=== PATIENT | female | born 1985 | race Caucasian/White ===

== ENCOUNTER 2016-09-14 00:48 | Emergency (ER) | payer OTHER ==
[~2016-09-14] VITALS: Ht 172.7 cm; Wt 65.0 kg
[~2016-09-14 00:48] MED LIST: ALPR.5 PO; CHOL1TAB42 PO; CIMZ200K SQ; LEVO.15 PO; LOMO2.5T PO; PANT20 PO; QUES4POW2 PO; VITA500T49 PO; ZOLO50TA PO
[2016-09-14 00:50] VITALS: BP 111/68; PULSE 129; RESP 16; TEMP 98; O2SAT 100
[2016-09-14] MEDS ORDERED: SODIUM CHLOR 0.9% 1000 ML INJ 1,000 ML IV SCH (01:06)
--- NOTE | 2016-09-14 01:09 | PD ---
HPI Chief Complaint: GI Complaint Time Seen by Provider: 01:04 Travel History International Travel<30 days: No Contact w/Intl Traveler<30days: No Traveled to known affect area: No History of Present Illness HPI 30-year-old female with history of Crohn's disease, ileostomy with high output, here for evaluation of possible dehydration. Patient reports taking Lomotil and Imodium for her high output in her ileostomy, ran out of Lomotil about 1 week ago. States that this evening she had a couple episodes of vomiting which consisted of vegetables soup which she had just eaten. She denies fevers or chills. No abdominal pain. Her gill tender is Dr. Keene. [facility]LY [facility] Past Medical History Arthritis: Yes Autoimmune Disease: Yes (CROHNS DISEASE) Blood Disorders: No Anxiety: Yes Depression: No Heart Rhythm Problems: Yes (RUNS TACHY WHEN DEHYDRATED) Cancer: No Cardiovascular Problems: Yes High Cholesterol: No Chest Pain: No Congestive Heart Failure: No Cerebrovascular Accident: Yes Diabetes: No Diminished Hearing: No Endocrine: Yes Gastrointestinal Disorders: Yes (CROHNS) Genitourinary: Yes (GARRET) Immune Disorder: Yes Implanted Vascular Access Dvce: Yes Kidney Stones: Yes Musculoskeletal: Yes Neurologic: Yes Psychiatric: Yes Reproductive: No Respiratory: No Immunizations Current: Yes Thyroid Disease: Yes (THYROIDECTOMY) Ulcer: Yes (peptic ulcer disease) : 1 Para: 1 Miscarriage: 0 : 0 Past Surgical History Abdominal Surgery: Yes (SMALL BOWEL RESECTION/ILEOSTOMY) Body Medical Devices: BREAST IMPLANTS, PLATES AND SCREWS IN R ANKLE Section: Yes Endocrine Surgery: Yes (thyroidectomy) Gynecologic Surgery: Yes (c section) Other Surgery: Yes Social History Alcohol Use: Yes (rarely) Tobacco Use: Yes (1/4 pack per day) Substance Use: No Allergies-Medications (Allergen,Severity, Reaction): Coded Allergies: Codeine (Verified Allergy, Mild, HIVES, 09/14/16) Latex (Verified Allergy, Mild, RASH, 09/14/16) Levaquin (Verified Adverse Reaction, Intermediate, HOURSE THROUT AND SOB, 09/14/16) Reported Meds & Prescriptions Reported Meds & Active Scripts Active Questran (Cholestyramine) 4 Gm/Dose Powd 4 Gm PO BID 1 level scoopful of powder contains 4 grams of cholestyramine. Lomotil (Diphenoxylate-Atropine) 2.5-0.025 Mg Tab 1 Tab PO Q8HR PRN Reported Vitamin B12 (Cyanocobalamin) 500 Mcg Tab 3,000 Mcg PO DAILY Vitamin D-3 (Cholecalciferol) 2,000 Unit Tab 50,000 Mg PO BI WEEKLY Synthroid (Levothyroxine Sodium) 150 Mcg Tab 150 Mcg PO DAILY Zoloft (Sertraline HCl) 50 Mg Tab 50 Mg PO DAILY Protonix (Pantoprazole Sodium) 20 Mg Tab 20 Mg PO DAILY Cimzia (2 syringe) Kit Inj (Certolizumab Pegol Inj) 200 Mg/Ml Kit 200 Mg SQ MONTHLY Administer 2 syringes (400 mg) to separate sites. Xanax (Alprazolam) 0.5 Mg Tab 0.5 Mg PO Q6H PRN Review of Systems Except as stated in HPI: all other systems reviewed are Neg Physical Exam Narrative GENERAL: Well-developed, thin, comfortable, no acute distress. SKIN: Warm and dry. No rash. HEAD: Atraumatic. Normocephalic. EYES: Pupils equal and round. No scleral icterus. No injection or drainage. ENT: Mucous membranes pink and moist. CARDIOVASCULAR: Regular rate and rhythm. RESPIRATORY: No accessory muscle use. Clear to auscultation. Breath sounds equal bilaterally. GASTROINTESTINAL: Abdomen soft, non-tender, nondistended. Right-sided ileostomy bag. MUSCULOSKELETAL: No obvious deformities. No clubbing. No cyanosis. No edema. NEUROLOGICAL: Awake and alert. No obvious cranial nerve deficits. Motor grossly within normal limits. Normal speech. PSYCHIATRIC: Appropriate mood and affect; insight and judgment normal. Data Data Last Documented VS Vital Signs Date Time Temp Pulse Resp B/P Pulse Ox O2 Delivery O2 Flow Rate FiO2 09/14/16 02:15 92 17 97 Room Air 09/14/16 00:50 98.0 111/68 Orders Beta Hcg (Quant/Titer) (09/14/16 01:06) Complete Blood Count With Diff (09/14/16 01:06) Comprehensive Metabolic Panel (09/14/16 01:06) Iv Access Insert/Monitor (09/14/16 01:06) Ecg Monitoring (09/14/16 01:06) Oximetry (09/14/16 01:06) Ondansetron Inj (Zofran Inj) (1/22/17 01:15) Sodium Chlor 0.9% 1000 Ml Inj (Ns 1000 M (09/14/16 01:06) Sodium Chloride 0.9% Flush (Ns Flush) (09/14/16 01:15) Sodium Chlor 0.9% 1000 Ml Inj (Ns 1000 M (09/14/16 02:15) Basic Metabolic Panel (Bmp) (09/14/16 02:07) Labs Laboratory Tests Test 09/14/16 09/14/16 01:20 03:45 White Blood Count 11.6 TH/MM3 Red Blood Count 5.23 MIL/MM3 Hemoglobin 15.0 GM/DL Hematocrit 43.4 % Mean Corpuscular Volume 83.0 FL Mean Corpuscular Hemoglobin 28.7 PG Mean Corpuscular Hemoglobin 34.5 % Concent Red Cell Distribution Width 13.5 % Platelet Count 481 TH/MM3 Mean Platelet Volume 7.7 FL Neutrophils (%) (Auto) 78.2 % Lymphocytes (%) (Auto) 11.0 % Monocytes (%) (Auto) 10.2 % Eosinophils (%) (Auto) 0.1 % Basophils (%) (Auto) 0.5 % Neutrophils # (Auto) 9.1 TH/MM3 Lymphocytes # (Auto) 1.3 TH/MM3 Monocytes # (Auto) 1.2 TH/MM3 Eosinophils # (Auto) 0.0 TH/MM3 Basophils # (Auto) 0.1 TH/MM3 CBC Comment DIFF FINAL Differential Comment Sodium Level 128 MEQ/L 135 MEQ/L Potassium Level 4.6 MEQ/L 4.4 MEQ/L Chloride Level 95 MEQ/L 105 MEQ/L Carbon Dioxide Level 23.3 MEQ/L 20.8 MEQ/L Anion Gap 10 MEQ/L 9 MEQ/L Blood Urea Nitrogen 13 MG/DL 11 MG/DL Creatinine 1.68 MG/DL 1.27 MG/DL Estimat Glomerular Filtration 36 ML/MIN 49 ML/MIN Rate Random Glucose 100 MG/DL 95 MG/DL Calcium Level 9.4 MG/DL 7.7 MG/DL Total Bilirubin 0.3 MG/DL Aspartate Amino Transf 13 U/L (AST/SGOT) Alanine Aminotransferase 15 U/L (ALT/SGPT) Alkaline Phosphatase 109 U/L Total Protein 8.1 GM/DL Albumin 3.8 GM/DL Human Chorionic Gonadotropin, LESS THAN 1 Quant MIU/ML MDM Medical Decision Making Medical Screen Exam Complete: Yes Emergency Medical Condition: Yes Medical Record Reviewed: Yes Differential Diagnosis Dehydration, electrolyte abnormality, gastroenteritis Narrative Course Initial vital signs show heart rate 129, blood pressure 111/60, pulse ox 100% on room air, oral temp of 98F. CBC shows WBC 11.6, hemoglobin 15, hematocrit 43.4, platelets 481, neutrophils 78%. CMP is remarkable for sodium 128, chloride 95, creatinine 1.68, GFR 36, otherwise unremarkable. Beta hCG is negative. The patient was given a liter of normal saline and her heart rate improved to 92. She will be given another liter of normal saline and her BMP will be rechecked. Repeat chemistry after 2 L of IV fluids shows sodium 135, creatinine 1.27, GFR 49 which is markedly improved from first BMP. Patient still feels slightly sick , however she is feeling better. Her abdominal exam is benign. I believe she is stable for discharge home with outpatient follow-up with her gill tender this week. I will give her a perception for Zofran and Lomotil. She was informed on when to return to the emergency department which verbalizes understanding and agreement with plan. Diagnosis Primary Impression: Dehydration Referrals: Lunchroom Monitor 3 days Additional Instructions: Follow-up with your gill tender as scheduled. Stay hydrated with plenty of fluids. Return to the emergency department for worsening symptoms or any other concerns. Scripts Diphenoxylate-Atropine (Lomotil)2.5-0.025 Mg Tab1 Tab PO Q6H PRN (DIARRHEA) #30 TAB Ref 0 Prov:Richard Lee MD 09/14/16 Ondansetron Odt (Zofran Odt)4 Mg Tab4 Mg SL Q8HR PRN (Nausea/Vomiting) #30 TAB Ref 0 Prov:Richard Lee MD 09/14/16 Disposition: DISCHARGE HOME Condition: Stable Richard Lee MD Sep 14, 2016 01:09
[2016-09-14] MEDS ORDERED: SODIUM CHLORIDE 0.9% FLUSH 5 ML FLUSH IVF PRN (01:15)
[2016-09-14] MEDS ORDERED: ONDANSETRON HCL 4 MG/2 ML VIAL IVP ONE (01:15)
[2016-09-14 01:43] LABS: AUTOMATED NEUTROPHIL # 9.1 TH/MM3 (1.8-7.7); BASOPHIL # 0.1 TH/MM3 (0-0.2); BASOPHIL % 0.5 % (0.0-2.0); EOSINOPHIL % 0.1 % (0.0-4.0); HEMATOCRIT 43.4 % (35.0-46.0); HEMO FLAGS DIFF FINAL; LYMPHOCYTE # 1.3 TH/MM3 (1.0-4.8); MEAN CORPUSCULAR HEMOGLOBIN 28.7 PG (27.0-34.0); MEAN CORPUSCULAR HGB CONC 34.5 % (32.0-36.0); MONO % 10.2 % (0.0-8.0); NEUT % 78.2 % (16.0-70.0); PLATELET COUNT 481 TH/MM3 (150-450); RED BLOOD COUNT 5.23 MIL/MM3 (4.00-5.30); RED CELL DISTRIBUTION WIDTH 13.5 % (11.6-17.2); WHITE BLOOD COUNT 11.6 TH/MM3 (4.0-11.0)
[2016-09-14 01:59] LABS: ALT (GPT) 15 U/L (10-53); ANION GAP 10 MEQ/L (5-15); AST (GOT) 13 U/L (15-37); BICARBONATE 23.3 MEQ/L (21.0-32.0); BLOOD UREA NITROGEN 13 MG/DL (7-18); CHLORIDE 95 MEQ/L (98-107); GLOMERULAR FILTRATION RATE 36 ML/MIN (>89); POTASSIUM 4.6 MEQ/L (3.5-5.1); SODIUM (NA) 128 MEQ/L (136-145)
[2016-09-14 02:02] LABS: ALKALINE PHOSPHATASE 109 U/L (45-117); BETA HCG QUANT LESS THAN 1 MIU/ML (0-5); TOTAL BILIRUBIN ADULT 0.3 MG/DL (0.2-1.0)
[2016-09-14 02:15] VITALS: PULSE 92; RESP 17; O2SAT 97
[2016-09-14] MEDS ORDERED: SODIUM CHLOR 0.9% 1000 ML INJ 1,000 ML IV ONE (02:15)
[2016-09-14 04:44] LABS: BICARBONATE 20.8 MEQ/L (21.0-32.0); POTASSIUM 4.4 MEQ/L (3.5-5.1)
[2016-09-14] MEDS ORDERED: LOMO2.5T PO (04:49)
[2016-09-14] MEDS ORDERED: ZOFR4TAB3 SL (04:49)
== END 2016-09-14 05:22 | disposition home or self-care (01) ==
LOC: NEPC 00:48
DX: E86.0 Dehydration (principal); K50.90 Crohn's disease, unspecified, without complications; Z93.2 Ileostomy status
CPT/HCPCS: 80048; 80053; 84702; 85025; 96361; 96374; 99284; J2405; J7030

== ENCOUNTER 2016-10-07 23:17 | Emergency (ER) | payer OTHER ==
[~2016-10-07] VITALS: Ht 170.2 cm; Wt 55.0 kg
[~2016-10-07 23:17] MED LIST changes: +ZOFR4TAB3 SL
[2016-10-07 23:21] VITALS: BP 120/83; PULSE 120; RESP 16; TEMP 98.2; O2SAT 100
[2016-10-08 03:38] LABS: AUTOMATED NEUTROPHIL # 4.6 TH/MM3 (1.8-7.7); BASOPHIL # 0.1 TH/MM3 (0-0.2); EOSINOPHIL % 0.3 % (0.0-4.0); HEMATOCRIT 45.1 % (35.0-46.0); HEMO FLAGS DIFF FINAL; LYMPH % 22.5 % (9.0-44.0); LYMPHOCYTE # 1.7 TH/MM3 (1.0-4.8); MEAN CELL VOLUME 83.4 FL (80.0-100.0); MEAN CORPUSCULAR HEMOGLOBIN 28.4 PG (27.0-34.0); MEAN CORPUSCULAR HGB CONC 34.1 % (32.0-36.0); MONO % 13.4 % (0.0-8.0); NEUT % 62.8 % (16.0-70.0); PLATELET COUNT 507 TH/MM3 (150-450); RED BLOOD COUNT 5.41 MIL/MM3 (4.00-5.30); RED CELL DISTRIBUTION WIDTH 13.9 % (11.6-17.2); WHITE BLOOD COUNT 7.4 TH/MM3 (4.0-11.0)
[2016-10-08 04:11] LABS: ANION GAP 11 MEQ/L (5-15); AST (GOT) 16 U/L (15-37); BICARBONATE 23.5 MEQ/L (21.0-32.0); BLOOD UREA NITROGEN 12 MG/DL (7-18); CHLORIDE 98 MEQ/L (98-107); GLOMERULAR FILTRATION RATE 45 ML/MIN (>89); POTASSIUM 4.3 MEQ/L (3.5-5.1); SODIUM (NA) 132 MEQ/L (136-145)
[2016-10-08 04:15] LABS: ALKALINE PHOSPHATASE 120 U/L (45-117); ALT (GPT) 17 U/L (10-53); TOTAL BILIRUBIN ADULT 0.3 MG/DL (0.2-1.0)
[2016-10-08 04:38] LABS: BLOOD, URINE NEG (NEG); COMMENT (UR) CULT NOT INDICATED; CULTURE IF INDICATED CULT NOT INDICATED; GLUCOSE,URINE NEG (NEG); KETONE, URINE NEG (NEG); NITRITE,URINE NEG (NEG); PH, URINE 5.5 (5.0-8.5); URINE COLOR YELLOW (YELLW/STRAW)
[2016-10-08 09:30] VITALS: BP 110/80; PULSE 85; RESP 17; O2SAT 98
[2016-10-08] MEDS ORDERED: SODIUM CHLOR 0.9% 1000 ML INJ 1,000 ML IV ONE ×2 (09:30→11:00)
[2016-10-08] MEDS ORDERED: ONDANSETRON HCL 4 MG/2 ML VIAL IV PUSH ONE (09:30)
--- NOTE | 2016-10-08 09:42 | PD ---
HPI Chief Complaint: GI Complaint Time Seen by Provider: 09:25 Travel History International Travel<30 days: No Contact w/Intl Traveler<30days: No Traveled to known affect area: No History of Present Illness HPI 31-year-old female with history of Crohn's disease, has an ileostomy, gastroparesis, presents to the ER today because she states that she had been nauseous, vomiting several times in the past 24 hours, abdominal cramping pains , and is here because she is getting lightheaded, thinks she may be dehydrated. She states that her ileostomy is fairly high output. She also states she may have a mild fever. She has had no vomiting since 9 PM last night. Modifying Factors: None Associated Signs & Symptoms: Nausea, vomiting, abdominal cramping pains Risk Factors: History gastroparesis and Crohn's disease PFSH Past Medical History Arthritis: Yes Autoimmune Disease: Yes (CROHNS DISEASE) Blood Disorders: No Anxiety: Yes Depression: No Heart Rhythm Problems: Yes (RUNS TACHY WHEN DEHYDRATED) Cancer: No Cardiovascular Problems: Yes High Cholesterol: No Chest Pain: No Congestive Heart Failure: No Cerebrovascular Accident: Yes Diabetes: No Diminished Hearing: No Endocrine: Yes Gastrointestinal Disorders: Yes (CROHNS) Genitourinary: Yes (GARRET) Immune Disorder: Yes Implanted Vascular Access Dvce: Yes Kidney Stones: Yes Musculoskeletal: Yes Neurologic: Yes Psychiatric: Yes Reproductive: No Respiratory: No Immunizations Current: Yes Thyroid Disease: Yes (THYROIDECTOMY) Ulcer: Yes (peptic ulcer disease) Tetanus Vaccination: < 5 Years Influenza Vaccination: Yes ?: Not : 1 Para: 1 Miscarriage: 0 : 0 Past Surgical History Abdominal Surgery: Yes (SMALL BOWEL RESECTION/ILEOSTOMY) Body Medical Devices: BREAST IMPLANTS, PLATES AND SCREWS IN R ANKLE Section: Yes Endocrine Surgery: Yes (thyroidectomy) Gynecologic Surgery: Yes (c section) Other Surgery: Yes Social History Alcohol Use: Yes (rarely) Tobacco Use: Yes (1/4 pack per day) Substance Use: No Allergies-Medications (Allergen,Severity, Reaction): Coded Allergies: Codeine (Verified Allergy, Mild, HIVES, 10/07/16) Latex (Verified Allergy, Mild, RASH, 10/07/16) Levaquin (Verified Adverse Reaction, Intermediate, HOURSE THROUT AND SOB, 10/07/16) Reported Meds & Prescriptions Reported Meds & Active Scripts Active Lomotil (Diphenoxylate-Atropine) 2.5-0.025 Mg Tab 1 Tab PO Q6H PRN Zofran Odt (Ondansetron Odt) 4 Mg Tab 4 Mg SL Q8HR PRN Questran (Cholestyramine) 4 Gm/Dose Powd 4 Gm PO BID 1 level scoopful of powder contains 4 grams of cholestyramine. Lomotil (Diphenoxylate-Atropine) 2.5-0.025 Mg Tab 1 Tab PO Q8HR PRN Reported Vitamin B12 (Cyanocobalamin) 500 Mcg Tab 3,000 Mcg PO DAILY Vitamin D-3 (Cholecalciferol) 2,000 Unit Tab 50,000 Mg PO BI WEEKLY Synthroid (Levothyroxine Sodium) 150 Mcg Tab 150 Mcg PO DAILY Zoloft (Sertraline HCl) 50 Mg Tab 50 Mg PO DAILY Protonix (Pantoprazole Sodium) 20 Mg Tab 20 Mg PO DAILY Cimzia (2 syringe) Kit Inj (Certolizumab Pegol Inj) 200 Mg/Ml Kit 200 Mg SQ MONTHLY Administer 2 syringes (400 mg) to separate sites. Xanax (Alprazolam) 0.5 Mg Tab 0.5 Mg PO Q6H PRN Review of Systems Except as stated in HPI: all other systems reviewed are Neg Physical Exam Narrative GENERAL: Well-nourished, well-developed young white female patient in mild distress. SKIN: Warm and dry. HEAD: Normocephalic. EYES: No scleral icterus. No injection or drainage. NECK: Supple, trachea midline. CARDIOVASCULAR: Regular rate and rhythm without murmurs, gallops, or rubs. RESPIRATORY: Breath sounds equal bilaterally. No accessory muscle use. GASTROINTESTINAL: Abdomen soft, non-tender, nondistended. Ileostomy in place draining tangreenish stool. MUSCULOSKELETAL: No cyanosis, or edema. BACK: Nontender without obvious deformity. No CVA tenderness. Data Data Last Documented VS Vital Signs Date Time Temp Pulse Resp B/P Pulse Ox O2 Delivery O2 Flow Rate FiO2 10/07/16 23:38 16 10/07/16 23:21 98.2 120 120/83 100 Orders Complete Blood Count With Diff (10/08/16 03:03) Comprehensive Metabolic Panel (10/08/16 03:03) Urinalysis - C+S If Indicated (10/08/16 03:03) Lipase (10/08/16 03:03) Sodium Chlor 0.9% 1000 Ml Inj (Ns 1000 M (10/08/16 09:30) Ondansetron Inj (Zofran Inj) (10/08/16 09:30) Abdomen, Flat & Upright (10/08/16 09:42) Labs Laboratory Tests Test 10/08/16 10/08/16 03:25 04:20 White Blood Count 7.4 TH/MM3 Red Blood Count 5.41 MIL/MM3 Hemoglobin 15.4 GM/DL Hematocrit 45.1 % Mean Corpuscular Volume 83.4 FL Mean Corpuscular Hemoglobin 28.4 PG Mean Corpuscular Hemoglobin 34.1 % Concent Red Cell Distribution Width 13.9 % Platelet Count 507 TH/MM3 Mean Platelet Volume 7.3 FL Neutrophils (%) (Auto) 62.8 % Lymphocytes (%) (Auto) 22.5 % Monocytes (%) (Auto) 13.4 % Eosinophils (%) (Auto) 0.3 % Basophils (%) (Auto) 1.0 % Neutrophils # (Auto) 4.6 TH/MM3 Lymphocytes # (Auto) 1.7 TH/MM3 Monocytes # (Auto) 1.0 TH/MM3 Eosinophils # (Auto) 0.0 TH/MM3 Basophils # (Auto) 0.1 TH/MM3 CBC Comment DIFF FINAL Differential Comment Sodium Level 132 MEQ/L Potassium Level 4.3 MEQ/L Chloride Level 98 MEQ/L Carbon Dioxide Level 23.5 MEQ/L Anion Gap 11 MEQ/L Blood Urea Nitrogen 12 MG/DL Creatinine 1.37 MG/DL Estimat Glomerular Filtration 45 ML/MIN Rate Random Glucose 85 MG/DL Calcium Level 9.7 MG/DL Total Bilirubin 0.3 MG/DL Aspartate Amino Transf 16 U/L (AST/SGOT) Alanine Aminotransferase 17 U/L (ALT/SGPT) Alkaline Phosphatase 120 U/L Total Protein 8.6 GM/DL Albumin 3.7 GM/DL Lipase 105 U/L Urine Color YELLOW Urine Turbidity CLEAR Urine pH 5.5 Urine Specific [place]ola 1.006 Urine Protein NEG mg/dL Urine Glucose (UA) NEG mg/dL Urine Ketones NEG mg/dL Urine Occult Blood NEG Urine Nitrite NEG Urine Bilirubin NEG Urine Urobilinogen LESS THAN 2.0 MG/DL Urine Leukocyte Esterase NEG Urine RBC LESS THAN 1 /hpf Urine WBC 1 /hpf Microscopic Urinalysis Comment CULT NOT INDICATED MDM Medical Decision Making Medical Screen Exam Complete: Yes Emergency Medical Condition: Yes Medical Record Reviewed: Yes Interpretation(s) Laboratory Tests Test 10/08/16 03:25 Red Blood Count 5.41 MIL/MM3 (4.00-5.30) Hemoglobin 15.4 GM/DL (11.6-15.3) Platelet Count 507 TH/MM3 (150-450) Monocytes (%) (Auto) 13.4 % (0.0-8.0) Monocytes # (Auto) 1.0 TH/MM3 (0-0.9) Sodium Level 132 MEQ/L (136-145) Creatinine 1.37 MG/DL (0.50-1.00) Estimat Glomerular Filtration 45 ML/MIN (>89) Rate Alkaline Phosphatase 120 U/L (45-117) Total Protein 8.6 GM/DL (6.4-8.2) Last 24 hours Impressions Abdomen X-Ray 10/08/16 0942 Signed Impressions: Service Date/Time: Saturday, October 08, 2016 10:17 - CONCLUSION: 1. Ostomy in the right lower quadrant. Exam is otherwise within normal limits. Jerad Jerez MD Differential Diagnosis Nausea, vomiting, abdominal cramping painsgastroenteritis versus gastroparesis versus metabolic issues versus dehydration Narrative Course Abdomen is benign on exam. Ostomy appears to be functioning well. Lab work did not indicate significant leukocytosis, signs of sepsis, or significant dehydration. She was given Zofran and IV fluids in the ER. He she has not had continued vomiting episodes in the ER. X-ray did not show any signs of acute obstruction. At this point, my plan would be to release her with follow-up to GI and Dr. Tsang. Return for any worsening in symptoms as necessary. Patient states she has Zofran at home which she should take for nausea and vomiting. The plan was discussed with her and she states understanding. Diagnosis Primary Impression: N&V (nausea and vomiting) Additional Impression: Dehydration Disposition: 01 DISCHARGE HOME Condition: Stable SoonthPriyanka sanchez MD Oct 08, 2016 09:42
--- NOTE | 2016-10-08 10:38 | RADRPT ---
EXAM DATE/TIME: 10/08/2016 10:17 [facility] COMPARISON: CHEST SINGLE AP, December 06, 2015, 19:55. INDICATIONS : Vomiting, abdomen pain. MEDICAL HISTORY : Crohn's disease. SURGICAL HISTORY : ileostomy ENCOUNTER: Initial ACUITY: 1 week PAIN SCORE: 6/10 LOCATION: Bilateral abdomen FINDINGS: Supine and upright views of the abdomen were performed. The abdominal bowel gas pattern is normal. No air fluid levels are seen. No abnormal masses, calcifications, or organomegaly is seen. The visu alized lower lungs are clear. No evidence of free intraperitoneal gas. The osseous structures are u nremarkable. The examination does demonstrate an ostomy in the right lower quadrant. CONCLUSION: 1. Ostomy in the right lower quadrant. Exam is otherwise within normal limits. Jerad Jerez MD on October 08, 2016 at 10:36 Board Certified Radiologist. This report was verified electronically.
[2016-10-08 12:00] VITALS: BP 107/71; PULSE 84; RESP 19; O2SAT 100
[2016-10-09] MEDS ORDERED: HYDR-3533 PO (10:28)
[2016-10-09] MEDS ORDERED: ZOFR4TAB3 SL (10:28)
== END 2016-10-08 12:53 | disposition home or self-care (01) ==
LOC: NEPC 23:17
DX: R11.2 Nausea with vomiting, unspecified (principal); E86.0 Dehydration; K50.90 Crohn's disease, unspecified, without complications; K31.84 Gastroparesis; R42 Dizziness and giddiness; Z87.442 Personal history of urinary calculi; E07.9 Disorder of thyroid, unspecified; F17.210 Nicotine dependence, cigarettes, uncomplicated; Z86.73 Personal history of transient ischemic attack (TIA), and cerebral infarction without residual deficits
CPT/HCPCS: 74020; 80053; 81001; 83690; 85025; 96361; 96374; 99284; J2405; J7030

== ENCOUNTER 2016-10-09 03:26 | Emergency (ER) | payer OTHER ==
[~2016-10-09] VITALS: Ht 170.2 cm; Wt 60.0 kg
[2016-10-09 03:37] VITALS: BP 128/73; PULSE 98; RESP 16; TEMP 98.3; O2SAT 100
[2016-10-09] MEDS ORDERED: HYDROmorphone HCL PF 1 MG/ML VIAL IVS ONE (03:45)
[2016-10-09] MEDS ORDERED: SODIUM CHLORIDE 0.9% FLUSH 5 ML FLUSH IVF PRN (03:45)
[2016-10-09] MEDS: SODIUM CHLOR 0.9% 1000 ML INJ 1,000 ML IV SCH ×2 (03:47→06:42)
[2016-10-09 04:02] LABS: AUTOMATED NEUTROPHIL # 2.3 TH/MM3 (1.8-7.7); BASOPHIL % 0.9 % (0.0-2.0); EOSINOPHIL # 0.1 TH/MM3 (0-0.4); EOSINOPHIL % 1.2 % (0.0-4.0); HEMO FLAGS DIFF FINAL; LYMPH % 39.6 % (9.0-44.0); LYMPHOCYTE # 2.1 TH/MM3 (1.0-4.8); MEAN CORPUSCULAR HEMOGLOBIN 28.9 PG (27.0-34.0); MEAN CORPUSCULAR HGB CONC 34.8 % (32.0-36.0); MONO % 15.4 % (0.0-8.0); NEUT % 42.9 % (16.0-70.0); PLATELET COUNT 559 TH/MM3 (150-450); RED CELL DISTRIBUTION WIDTH 14.2 % (11.6-17.2); WHITE BLOOD COUNT 5.4 TH/MM3 (4.0-11.0)
[2016-10-09 04:24] LABS: ALKALINE PHOSPHATASE 106 U/L (45-117); TOTAL BILIRUBIN ADULT 0.3 MG/DL (0.2-1.0)
[2016-10-09 04:32] LABS: ALT (GPT) 14 U/L (10-53); ANION GAP 12 MEQ/L (5-15); AST (GOT) 16 U/L (15-37); BICARBONATE 19.9 MEQ/L (21.0-32.0); BLOOD UREA NITROGEN 11 MG/DL (7-18); CHLORIDE 105 MEQ/L (98-107); GLOMERULAR FILTRATION RATE 57 ML/MIN (>89); SODIUM (NA) 137 MEQ/L (136-145)
--- NOTE | 2016-10-09 04:37 | RADRPT ---
EXAM DATE/TIME: 10/09/2016 03:58 [facility] COMPARISON: No previous studies available for comparison. INDICATIONS : Abdomen pain. MEDICAL HISTORY : Crohn's disease. SURGICAL HISTORY : Colostomy. ENCOUNTER: Initial ACUITY: 2 days PAIN SCORE: 10/10 LOCATION: Bilateral lower quadrant FINDINGS: A single erect view of the abdomen demonstrates the lower lungs to be clear. No evidence of free int raperitoneal gas. The visualized bowel loops are unremarkable. CONCLUSION: 1. No evidence of obstruction. Alexandru Walsh MD on October 09, 2016 at 4:35 Board Certified Radiologist. This report was verified electronically.
--- NOTE | 2016-10-09 04:45 | PD ---
HPI Chief Complaint: Abdominal Pain Time Seen by Provider: 03:31 Travel History International Travel<30 days: No Contact w/Intl Traveler<30days: No Traveled to known affect area: No History of Present Illness HPI This is a 31-year-old female history Crohn's disease, pancreatitis, gastroparesis, who has an ileostomy, and presents today with complaints of 8 out of 10 abdominal pain. With associated nausea. The patient reports being here 24 hours ago for the same thing. At that time she states that they did laboratory work and observed her. She states that the pain dropped down to a 6 out of 10 but now has recurred and is around 810. She denies any fevers, chills. She is actually requesting an NG tube. She denies any dysuria, frequency or urgency. History Past Medical History Tetanus Vaccination: < 5 Years Influenza Vaccination: Yes : 1 Para: 1 Social History Alcohol Use: Yes (rarely) Tobacco Use: Yes (1/4 pack per day) Allergies-Medications (Allergen,Severity, Reaction): Coded Allergies: Codeine (Verified Allergy, Mild, HIVES, 10/09/16) Latex (Verified Allergy, Mild, RASH, 10/09/16) Levaquin (Verified Adverse Reaction, Intermediate, HOURSE THROUT AND SOB, 10/09/16) Reported Meds & Prescriptions Reported Meds & Active Scripts Active Lomotil (Diphenoxylate-Atropine) 2.5-0.025 Mg Tab 1 Tab PO Q6H PRN Zofran Odt (Ondansetron Odt) 4 Mg Tab 4 Mg SL Q8HR PRN Questran (Cholestyramine) 4 Gm/Dose Powd 4 Gm PO BID 1 level scoopful of powder contains 4 grams of cholestyramine. Lomotil (Diphenoxylate-Atropine) 2.5-0.025 Mg Tab 1 Tab PO Q8HR PRN Reported Vitamin B12 (Cyanocobalamin) 500 Mcg Tab 3,000 Mcg PO DAILY Vitamin D-3 (Cholecalciferol) 2,000 Unit Tab 50,000 Mg PO BI WEEKLY Synthroid (Levothyroxine Sodium) 150 Mcg Tab 150 Mcg PO DAILY Zoloft (Sertraline HCl) 50 Mg Tab 50 Mg PO DAILY Protonix (Pantoprazole Sodium) 20 Mg Tab 20 Mg PO DAILY Cimzia (2 syringe) Kit Inj (Certolizumab Pegol Inj) 200 Mg/Ml Kit 200 Mg SQ MONTHLY Administer 2 syringes (400 mg) to separate sites. Xanax (Alprazolam) 0.5 Mg Tab 0.5 Mg PO Q6H PRN Review of Systems Except as stated in HPI: all other systems reviewed are Neg General / Constitutional: No: Fever, Chills HENT: No: Headaches, Lightheadedness Cardiovascular: No: Chest Pain or Discomfort, Palpitations Respiratory: No: Cough, Shortness of Breath Gastrointestinal: Positive: Nausea, Abdominal Pain, No: Vomiting Genitourinary: No: Frequency, Dysuria, Nocturia Skin: No Rash, No Itching Neurologic: No: Weakness, Dizziness Physical Exam Narrative GENERAL: Well-developed well-nourished female in no acute respiratory distress. SKIN: Warm and dry. HEAD: Atraumatic. Normocephalic. EYES: No scleral icterus. No injection or drainage. ENT: No nasal bleeding or discharge. Mucous membranes pink and moist. NECK: Trachea midline. Supple CARDIOVASCULAR: Regular rate and rhythm. No murmur appreciated. RESPIRATORY: No accessory muscle use. Clear to auscultation. Breath sounds equal bilaterally. GASTROINTESTINAL: Abdomen soft, nondistended. Her ileostomy site shows good output. No rebound, guarding. MUSCULOSKELETAL: No obvious deformities. No clubbing. No cyanosis. No edema. NEUROLOGICAL: Awake and alert. No obvious cranial nerve deficits. Data Data Last Documented VS Vital Signs Date Time Temp Pulse Resp B/P Pulse Ox O2 Delivery O2 Flow Rate FiO2 10/09/16 03:37 98.3 98 16 128/73 100 Room Air Orders Complete Blood Count With Diff (10/09/16 03:39) Comprehensive Metabolic Panel (10/09/16 03:39) Lipase (10/09/16 03:39) Urinalysis - C+S If Indicated (10/09/16 03:39) Iv Access Insert/Monitor (10/09/16 03:39) Ecg Monitoring (10/09/16 03:39) Oximetry (10/09/16 03:39) Sodium Chlor 0.9% 1000 Ml Inj (Ns 1000 M (10/09/16 03:39) Sodium Chloride 0.9% Flush (Ns Flush) (10/09/16 03:45) Abdomen, Upright Only (10/09/16 03:39) Hydromorphone Pf Inj (Dilaudid Pf Inj) (10/09/16 03:45) Hydromorphone Pf Inj (Dilaudid Pf Inj) (10/09/16 06:45) Sodium Chlor 0.9% 1000 Ml Inj (Ns 1000 M (10/09/16 07:00) Labs Laboratory Tests Test 10/09/16 10/09/16 03:45 05:45 White Blood Count 5.4 TH/MM3 Red Blood Count 5.30 MIL/MM3 Hemoglobin 15.3 GM/DL Hematocrit 44.0 % Mean Corpuscular Volume 83.0 FL Mean Corpuscular Hemoglobin 28.9 PG Mean Corpuscular Hemoglobin 34.8 % Concent Red Cell Distribution Width 14.2 % Platelet Count 559 TH/MM3 Mean Platelet Volume 7.4 FL Neutrophils (%) (Auto) 42.9 % Lymphocytes (%) (Auto) 39.6 % Monocytes (%) (Auto) 15.4 % Eosinophils (%) (Auto) 1.2 % Basophils (%) (Auto) 0.9 % Neutrophils # (Auto) 2.3 TH/MM3 Lymphocytes # (Auto) 2.1 TH/MM3 Monocytes # (Auto) 0.8 TH/MM3 Eosinophils # (Auto) 0.1 TH/MM3 Basophils # (Auto) 0.0 TH/MM3 CBC Comment DIFF FINAL Differential Comment Sodium Level 137 MEQ/L Potassium Level 4.0 MEQ/L Chloride Level 105 MEQ/L Carbon Dioxide Level 19.9 MEQ/L Anion Gap 12 MEQ/L Blood Urea Nitrogen 11 MG/DL Creatinine 1.12 MG/DL Estimat Glomerular Filtration 57 ML/MIN Rate Random Glucose 101 MG/DL Calcium Level 8.9 MG/DL Total Bilirubin 0.3 MG/DL Aspartate Amino Transf 16 U/L (AST/SGOT) Alanine Aminotransferase 14 U/L (ALT/SGPT) Alkaline Phosphatase 106 U/L Total Protein 7.6 GM/DL Albumin 3.5 GM/DL Lipase 103 U/L Urine Color YELLOW Urine Turbidity HAZY Urine pH 6.0 Urine Specific [place] 1.026 Urine Protein TRACE mg/dL Urine Glucose (UA) NEG mg/dL Urine Ketones NEG mg/dL Urine Occult Blood NEG Urine Nitrite NEG Urine Bilirubin NEG Urine Urobilinogen LESS THAN 2.0 MG/DL Urine Leukocyte Esterase NEG Urine RBC 1 /hpf Urine WBC 1 /hpf Urine Squamous Epithelial <1 /hpf Cells Urine Renal Epithelial Cells <1 /hpf Urine Hyaline Casts 17 /lpf Urine Mucus MANY /lpf Microscopic Urinalysis Comment CULT NOT INDICATED MDM Medical Decision Making Medical Screen Exam Complete: Yes Emergency Medical Condition: Yes Differential Diagnosis Acute exacerbation of Crohn's disease versus gastroparesis versus infectious process Narrative Course 31-year-old female whose been seen here multiple times for Crohn's exacerbation , who presents today with abdominal pain with associated nausea. The patient has no fevers chills. The patient's blood count and urinalysis are within normal limits. She does have a creatinine it's above 1.2. She's been given 2 doses of pain medicines. I anticipate if we can get her pain under control that she can safely be discharged. She is also given a fluid bolus.She will be signed out to Dr. Rajput and if she tolerates the fluid bolus and second dose of pain medication, I feel she can be discharged. Diagnosis Primary Impression: Exacerbation of Crohn's disease Additional Impressions: Dehydration Nausea Geovany Mireles MD Oct 09, 2016 04:45
[2016-10-09 05:55] LABS: BLOOD, URINE NEG (NEG); COMMENT (UR) CULT NOT INDICATED; CULTURE IF INDICATED CULT NOT INDICATED; GLUCOSE,URINE NEG (NEG); HYALINE CAST, URINE 17 /lpf (RARE); KETONE, URINE NEG (NEG); MUCUS URINE MANY /lpf (OCC); NITRITE,URINE NEG (NEG); RENAL EPITHELIAL CELLS <1 /hpf; SQUAMOUS EPITHELIAL CELL URINE <1 /hpf (0-5); URINE COLOR YELLOW (YELLW/STRAW)
[2016-10-09] MEDS ORDERED: HYDROmorphone HCL PF 1 MG/ML VIAL IV PUSH ONE (06:45)
[2016-10-09] MEDS ORDERED: SODIUM CHLOR 0.9% 1000 ML INJ 1,000 ML IV ONE (07:00)
[2016-10-09 07:10] VITALS: O2SAT 96
[2016-10-09 07:30] VITALS: BP 126/86; PULSE 78; RESP 19; O2SAT 99
[2016-10-09] MEDS ORDERED: IOHEXOL 350 MG/ML 10 ML VIAL (for RAD DIAG) IV ONE (08:34)
--- NOTE | 2016-10-09 09:00 | RADRPT ---
EXAM DATE/TIME: 10/09/2016 08:23 [facility] COMPARISON: CT ABDOMEN & PELVIS W CONTRAST, June 17, 2016, 14:19. INDICATIONS : Abdominal pain around stoma and nausea. IV CONTRAST: 69 cc Omnipaque 350 (iohexol) IV ORAL CONTRAST: No oral contrast ingested. RADIATION DOSE: 9.96 CTDIvol (mGy) MEDICAL HISTORY : Crohn's disease. Ulcers. Cardiovascular disease SURGICAL HISTORY : section. Small bowel resection, ileostomy. ENCOUNTER: Initial ACUITY: 1 day PAIN SCALE: 5/10 LOCATION: Right lower quadrant TECHNIQUE: Volumetric scanning of the abdomen and pelvis was performed. Using automated exposure control and ad justment of the mA and/or kV according to patient size, radiation dose was kept as low as reasonably achievable to obtain optimal diagnostic quality images. FINDINGS: LOWER LUNGS: The visualized lower lungs are clear. Bilateral breast augmentation. LIVER: Liver is enlarged measuring approximately 23 cm in greatest SI dimension. There is a faint, 2 cm hete rogeneous but only hypodense area near the anterior capsule of the left hepatic lobe which is unchang ed from prior and overtly benign possibly representing an atypical hemangioma. Density is otherwise h omogeneous SPLEEN: Normal size without lesion. PANCREAS: Within normal limits. KIDNEYS: Normal in size and shape. There is no mass, stone or hydronephrosis. ADRENAL GLANDS: Within normal limits. VASCULAR: There is no aortic aneurysm. BOWEL/MESENTERY: Patient has an ileostomy in the right lower abdominal quadrant. There is dilation of the bowel loops involving the distal portion of the ileostomy with a focal area of luminal narrowing in the trans-mus cular portion of the ileostomy. Whether this represents intrinsic disease of the bowel or an external compression due to the trans-muscular course is uncertain. I do believe that this does result in par tial obstruction of the outflow, however. ABDOMINAL WALL: Right lower quadrant ileostomy. RETROPERITONEUM: There is no lymphadenopathy. BLADDER: No wall thickening or mass. REPRODUCTIVE: Within normal limits. INGUINAL: There is no lymphadenopathy or hernia. MUSCULOSKELETAL: Within normal limits for patient age. CONCLUSION: 1. Focal area of what appears to be persistent narrowing in the distal ileostomy involving the trans- muscular portion of the bowel. I cannot tell if this represents intrinsic disease of the regional bow el or external compression due to the trans-muscular course. There is associated dilation of the ileu m just proximal to the area of narrowing, however. 2. Persistent hepatomegaly with a nonspecific hypodensity in the subcapsular portion anteriorly of th e left hepatic lobe. The lesion is overtly benign and unchanged from prior and, therefore, may repres ent an atypical hemangioma. If further characterization is necessary, outpatient MRI with and without gadolinium could be performed. Alfredo Meier MD on October 09, 2016 at 8:48 Board Certified Radiologist. This report was verified electronically.
[2016-10-09] MEDS ORDERED: LORazepam 2 MG/ML VIAL IV PUSH ONE (09:15)
[2016-10-09] MEDS ORDERED: ZOFR4TAB3 SL (10:28)
[2016-10-09] MEDS ORDERED: HYDR-3533 PO (10:28)
--- NOTE | 2016-10-09 10:28 | PD ---
Physical Exam Date Seen by Provider: Oct 09, 2016 Time Seen by Provider: 07:00 Narrative Patient signed out to me by Dr. Mireles, please see previous notes for further details. She is well-known to me, history of Crohn's disease, ileostomy, problems with by mouth intake, nausea, vomiting, dehydration. She is here again for abdominal pains, nausea, poor by mouth intake. Laboratory Tests Test 10/09/16 10/09/16 03:45 05:45 Platelet Count 559 TH/MM3 (150-450) Monocytes (%) (Auto) 15.4 % (0.0-8.0) Carbon Dioxide Level 19.9 MEQ/L (21.0-32.0) Creatinine 1.12 MG/DL (0.50-1.00) Estimat Glomerular Filtration 57 ML/MIN (>89) Rate Urine Turbidity HAZY (CLEAR) Urine Mucus MANY /lpf (OCC) Lab work returns showing any signs of acute processes. She has gotten IV fluids and pain medications in the ER. At this point, she is tearful and is worried that there could be something going on with her abdominal pain. CAT scan has been ordered for further evaluation this time. Last 24 hours Impressions Abdomen/Pelvis CT 10/09/16 0752 Signed Impressions: Service Date/Time: September 08:23 - CONCLUSION: 1. Focal area of what appears to be persistent narrowing in the distal ileostomy involving the trans-muscular portion of the bowel. I cannot tell if this represents intrinsic disease of the regional bowel or external compression due to the trans-muscular course. There is associated dilation of the ileum just proximal to the area of narrowing, however. 2. Persistent hepatomegaly with a nonspecific hypodensity in the subcapsular portion anteriorly of the left hepatic lobe. The lesion is overtly benign and unchanged from prior and, therefore, may represent an atypical hemangioma. If further characterization is necessary, outpatient MRI with and without gadolinium could be performed. Alfredo Meier MD Abdomen X-Ray 10/09/16 0339 Signed Impressions: Service Date/Time: September 03:58 - CONCLUSION: 1. No evidence of obstruction. Alexandru Walsh MD CAT scan was reviewed with radiologist and Dr. Tsang has been called regarding the CAT scan, I have reviewed findings with Dr. Tsang and he states that he would expect some of these findings with her ileostomy. Ileostomy appears to be functioning well and patient states that her ileostomy has been draining up to 2000 cc per day. It is at fairly high flow ileostomy and Dr. Tsang states that this does not appear to be consistent with a obstruction. However, she is getting fairly frustrated with the situation and pain and ongoing visits to the ER. I have talked to Dr. Fitzpatrick for observation admission. However, Dr. Fitzpatrick knows her well as well and states that there is not likely to be much that will occur during the admission. He has asked me to call Dr. Tsang again. I talked her and he states that he will be willing to see the patient in his office today or tomorrow. However, there does not appear to be any signs of acute issues that necessitate emergent surgery. At this point, I have discussed the findings with the patient and she states understanding and states she will follow-up with Dr. Tsang. Return for any worsening in symptoms as necessary. We will give her symptomatic relief or pain and vomiting. The plan was discussed with her and she states understanding. Data Data Last Documented VS Vital Signs Date Time Temp Pulse Resp B/P Pulse Ox O2 Delivery O2 Flow Rate FiO2 10/09/16 07:30 78 19 126/86 99 Room Air 10/09/16 03:37 98.3 Orders Complete Blood Count With Diff (10/09/16 03:39) Comprehensive Metabolic Panel (10/09/16 03:39) Lipase (10/09/16 03:39) Urinalysis - C+S If Indicated (10/09/16 03:39) Iv Access Insert/Monitor (10/09/16 03:39) Ecg Monitoring (10/09/16 03:39) Oximetry (10/09/16 03:39) Sodium Chlor 0.9% 1000 Ml Inj (Ns 1000 M (10/09/16 03:39) Sodium Chloride 0.9% Flush (Ns Flush) (10/09/16 03:45) Abdomen, Upright Only (10/09/16 03:39) Hydromorphone Pf Inj (Dilaudid Pf Inj) (10/09/16 03:45) Hydromorphone Pf Inj (Dilaudid Pf Inj) (10/09/16 06:45) Sodium Chlor 0.9% 1000 Ml Inj (Ns 1000 M (10/09/16 07:00) Ct Abd/Pel W Iv Contrast(Rout) (10/09/16 07:52) Iohexol 350 Inj (Omnipaque 350 Inj) (10/09/16 08:34) Lorazepam Inj (Ativan Inj) (10/09/16 09:15) Acetamin-Hydrocod 325-5 Mg ([place] 5-325 (10/09/16 10:30) Labs Laboratory Tests Test 10/09/16 10/09/16 03:45 05:45 White Blood Count 5.4 TH/MM3 Red Blood Count 5.30 MIL/MM3 Hemoglobin 15.3 GM/DL Hematocrit 44.0 % Mean Corpuscular Volume 83.0 FL Mean Corpuscular Hemoglobin 28.9 PG Mean Corpuscular Hemoglobin 34.8 % Concent Red Cell Distribution Width 14.2 % Platelet Count 559 TH/MM3 Mean Platelet Volume 7.4 FL Neutrophils (%) (Auto) 42.9 % Lymphocytes (%) (Auto) 39.6 % Monocytes (%) (Auto) 15.4 % Eosinophils (%) (Auto) 1.2 % Basophils (%) (Auto) 0.9 % Neutrophils # (Auto) 2.3 TH/MM3 Lymphocytes # (Auto) 2.1 TH/MM3 Monocytes # (Auto) 0.8 TH/MM3 Eosinophils # (Auto) 0.1 TH/MM3 Basophils # (Auto) 0.0 TH/MM3 CBC Comment DIFF FINAL Differential Comment Sodium Level 137 MEQ/L Potassium Level 4.0 MEQ/L Chloride Level 105 MEQ/L Carbon Dioxide Level 19.9 MEQ/L Anion Gap 12 MEQ/L Blood Urea Nitrogen 11 MG/DL Creatinine 1.12 MG/DL Estimat Glomerular Filtration 57 ML/MIN Rate Random Glucose 101 MG/DL Calcium Level 8.9 MG/DL Total Bilirubin 0.3 MG/DL Aspartate Amino Transf 16 U/L (AST/SGOT) Alanine Aminotransferase 14 U/L (ALT/SGPT) Alkaline Phosphatase 106 U/L Total Protein 7.6 GM/DL Albumin 3.5 GM/DL Lipase 103 U/L Urine Color YELLOW Urine Turbidity HAZY Urine pH 6.0 Urine Specific [place] 1.026 Urine Protein TRACE mg/dL Urine Glucose (UA) NEG mg/dL Urine Ketones NEG mg/dL Urine Occult Blood NEG Urine Nitrite NEG Urine Bilirubin NEG Urine Urobilinogen LESS THAN 2.0 MG/DL Urine Leukocyte Esterase NEG Urine RBC 1 /hpf Urine WBC 1 /hpf Urine Squamous Epithelial <1 /hpf Cells Urine Renal Epithelial Cells <1 /hpf Urine Hyaline Casts 17 /lpf Urine Mucus MANY /lpf Microscopic Urinalysis Comment CULT NOT INDICATED MDM Medical Record Reviewed: Yes Supervised Visit with XAVIER: No Diagnosis Primary Impression: Exacerbation of Crohn's disease Additional Impressions: Nausea Dehydration Med/Other Pt SpecificInfo: Prescription(s) given Scripts Ondansetron Odt (Zofran Odt)4 Mg Tab4 Mg SL Q6HR PRN (Nausea/Vomiting) #7 TAB Ref 0 Prov:Priyanka Rajput MD 10/09/16 Hydrocodone-Acetaminophen (Lortab)5-325 Mg Tab1-2 Tab PO Q6H PRN (PAIN) #15 TAB Ref 0 Prov:Priyanka Rajput MD 10/09/16 Disposition: 01 DISCHARGE HOME Condition: Stable Priyanka Rajput MD Oct 09, 2016 10:28
[2016-10-09] MEDS ORDERED: ACETAMINOPHEN/HYDROcodone 325 MG/5 MG TAB PO ONE (10:30)
[2016-10-09 10:48] VITALS: BP 122/71; TEMP 97.8
== END 2016-10-09 10:49 | disposition home or self-care (01) ==
LOC: NEPE 03:26
DX: K50.90 Crohn's disease, unspecified, without complications (principal); E86.0 Dehydration; R11.0 Nausea; F17.210 Nicotine dependence, cigarettes, uncomplicated
CPT/HCPCS: 74000; 74177; 80053; 81001; 83690; 85025; 96361; 96374; 96375; 96376; 99284; J1170; J2060; J7030; Q9967

== ENCOUNTER 2016-10-10 16:48 | Inpatient (IN) | payer OTHER ==
[~2016-10-10] VITALS: Ht 170.2 cm; Wt 51.0 kg
[~2016-10-10 16:48] MED LIST changes: +HYDR-3533 PO
[2016-10-13 15:31] VITALS: BP 107/65; PULSE 94; RESP 16; TEMP 98.2; O2SAT 100
[2016-10-13] MEDS: SODIUM CHLOR 0.9% 1000 ML INJ 1,000 ML IV SCH ×3 (17:00→20:52)
[2016-10-13] MEDS: METOCLOPRAMIDE HCL 10 MG/2 ML VIAL IV PUSH SCH ×3 (17:15→21:48)
[2016-10-13] MEDS ORDERED: ONDANSETRON HCL 4 MG/2 ML VIAL IV PUSH PRN (17:15)
[2016-10-13] MEDS: SERTRALINE HCL 50 MG TAB PO SCH (17:15)
[2016-10-13] MEDS: LEVOTHYROXINE SODIUM 150 MCG TAB PO SCH (17:26)
[2016-10-13] MEDS ORDERED: PANTOPRAZOLE SODIUM 40 MG VIAL IV PUSH SCH (18:00)
[2016-10-13] MEDS: ALPRAZolam 0.5 MG TAB PO PRN (18:38)
[2016-10-13 19:06] LABS: BICARBONATE 24.8 MEQ/L (21.0-32.0); MAGNESIUM 2.1 MG/DL (1.5-2.5); POTASSIUM 5.2 MEQ/L (3.5-5.1)
[2016-10-13 19:07] LABS: AUTOMATED NEUTROPHIL # 8.5 TH/MM3 (1.8-7.7); BASOPHIL # 0.1 TH/MM3 (0-0.2); BASOPHIL % 0.6 % (0.0-2.0); HEMATOCRIT 46.6 % (35.0-46.0); HEMO FLAGS DIFF FINAL; LYMPH % 14.3 % (9.0-44.0); LYMPHOCYTE # 1.6 TH/MM3 (1.0-4.8); MEAN CELL VOLUME 82.6 FL (80.0-100.0); MEAN CORPUSCULAR HGB CONC 33.9 % (32.0-36.0); MONO % 6.9 % (0.0-8.0); NEUT % 78.2 % (16.0-70.0); PLATELET COUNT 625 TH/MM3 (150-450); RED BLOOD COUNT 5.64 MIL/MM3 (4.00-5.30); RED CELL DISTRIBUTION WIDTH 14.4 % (11.6-17.2); WHITE BLOOD COUNT 10.9 TH/MM3 (4.0-11.0)
--- NOTE | 2016-10-13 20:15 | PD.HP.UP ---
H&P Update Note The Pre-Admit History and Physical Examination regarding the above named patient was reviewed (including, but not limited to, vital signs, heart, lungs, co-morbid conditions), and upon re-examination it is noted that: the patient's condition has not significantly changed since the last examination. Ton Tsang MD Oct 13, 2016 20:15
--- NOTE | 2016-10-13 20:19 | HHI.PR ---
Subjective Remarks C/R Surg Pt known from prev adm, and surgery Sched for ileostomy tomorrow - c/o dehydration/weakness/dry heaves Objective - Vital Signs Date Time Temp Pulse Resp B/P Pulse Ox O2 Delivery O2 Flow Rate FiO2 10/13/16 15:31 98.2 94 16 107/65 100 Result Diagram: 10/13/16 1738 10/13/161737 Objective Remarks PE alert Abd - soft, flat, skin turgor OK stoma functioning A/P Assessment and Plan Imp: pre-op for surgery IVF hydration No bowel prep Ton Tsang MD Oct 13, 2016 20:19
[2016-10-13 21:27] VITALS: BP 115/75; PULSE 87; RESP 18; TEMP 97.8; O2SAT 98
[2016-10-14] VITALS (10 sets, daily range): BP systolic 105–130; BP diastolic 62–95; PULSE 77–117; RESP 16–18; TEMP 97.9–98.8; O2SAT 96–100
[2016-10-14] MEDS: LEVOTHYROXINE SODIUM 150 MCG TAB PO SCH (05:45)
[2016-10-14] MEDS: METOCLOPRAMIDE HCL 10 MG/2 ML VIAL IV PUSH SCH (05:45)
[2016-10-14] MEDS: SODIUM CHLOR 0.9% 1000 ML INJ 1,000 ML IV SCH ×3 (08:02→23:02)
[2016-10-14] MEDS: SERTRALINE HCL 50 MG TAB PO SCH (09:00)
[2016-10-14] MEDS ORDERED: PROPOFOL 200 MG/20 ML AMP IV ONE (10:43)
[2016-10-14] MEDS ORDERED: PHENYLEPH/NS 1000 MCG/10 ML SYR IV ONE (10:43)
[2016-10-14] MEDS ORDERED: ONDANSETRON HCL 4 MG/2 ML VIAL IV PUSH ONE (10:43)
[2016-10-14] MEDS ORDERED: LACTATED RINGER'S 1000 ML INJ 2,000 ML IV ONE (10:43)
[2016-10-14] MEDS ORDERED: LIDOCAINE 0.5%/EPINEPHrine 1:200,000 SOLN 50 ML VIAL ONE (12:27)
[2016-10-14] MEDS ORDERED: SUGAMMADEX SODIUM 200 MG/2 ML VIAL IV PUSH ONE ×2 (13:15)
[2016-10-14] MEDS ORDERED: fentaNYL CITRATE 250 MCG/5 ML AMP ONE (13:15)
[2016-10-14] MEDS ORDERED: MIDAZOLAM HCL 2 MG/2 ML VIAL ONE ×2 (13:21→13:40)
[2016-10-14] MEDS ORDERED: HYDROmorphone HCL PF 2 MG/ML VIAL ONE (13:21)
[2016-10-14] MEDS ORDERED: DICLOFENAC SODIUM 37.5 MG/ML VIAL IV PUSH ONE (13:29)
[2016-10-14] MEDS ORDERED: metroNIDAZOLE 500 MG INJ 100 ML IV ONE (13:30)
[2016-10-14] MEDS ORDERED: ceFAZolin INJ 1,000 MG VIAL ONE (13:30)
[2016-10-14] MEDS ORDERED: ALVIMOPAN 12 MG CAPSULE ONE (13:34)
[2016-10-14] MEDS ORDERED: FAMOTIDINE 20 MG/2 ML VIAL ONE (13:41)
[2016-10-14] MEDS ORDERED: DEXAMETHASONE SOD PHOS 4 MG/ML VIAL ONE (13:41)
[2016-10-14] MEDS ORDERED: ACETAMINOPHEN 1000 MG/100 ML VIAL IV ONE (13:47)
--- NOTE | 2016-10-14 15:43 | HHI.PR ---
Immediate Post Op Note Procedure Date: Oct 14, 2016 Pre Op Diagnosis: Hx Crohn's disease Post Op Diagnosis: Same, Crohn's of TI Surgeon: Ton Tsang Wire Rope Sales Representative(s): Zohra Procedure: Expl lap + seg small bowel resection, closure ileostomy Findings: adhesions to RLQ, prob crohn's ds of, 15 - 25 cm distal ileum, colon normal Complications: None Specimen(s) removed: small bowel, seg colon Estimated blood loss: 100cc Anesthesia: General Drains: None IVF Patient to: PACU Patient Condition: Good Ton Tsang MD Oct 14, 2016 15:43
[2016-10-14] MEDS ORDERED: BUPIVACAINE HCL PF 0.5% 30 ML VIAL NB SCH (15:45)
[2016-10-14] MEDS ORDERED: ENALAPRILAT 1.25 MG/ML VIAL IV PRN (15:45)
[2016-10-14] MEDS ORDERED: BENZOCAINE 6 MG/MENTHOL 10 MG LOZENGE SUCK-ON PRN (15:45)
[2016-10-14] MEDS ORDERED: ENALAPRILAT 2.5 MG/2 ML VIAL IV PRN (15:45)
[2016-10-14] MEDS ORDERED: SODIUM CHLORIDE 0.9% FLUSH 5 ML FLUSH IVF PRN (15:45)
[2016-10-14] MEDS ORDERED: POTASSIUM CHLOR 40 MEQ PREMIX 100 ML IV PRN (15:45)
[2016-10-14] MEDS ORDERED: PCA - TOTAL MG MORPHINE DELIVERED PER SHIFT SCH (15:45)
[2016-10-14] MEDS ORDERED: ACETAMINOPHEN/HYDROcodone 325 MG/5 MG TAB PO PRN ×2 (15:45)
[2016-10-14] MEDS ORDERED: DO NOT ADM ANY ANTICOAGULANT DRUGS XX PRN (15:45)
[2016-10-14] MEDS ORDERED: Post-op Orders (for Pharmacy) MISC XX ONE (15:45)
[2016-10-14] MEDS ORDERED: MORPHINE SULFATE 30 MG/30 ML PCA IV SCH (15:45)
[2016-10-14] MEDS ORDERED: NALOXONE HCL 0.4 MG/ML AMP IV PRN ×2 (15:45→16:30)
[2016-10-14] MEDS ORDERED: ACETAMINOPHEN 325 MG TAB PO PRN (15:45)
[2016-10-14] MEDS ORDERED: *MEPERIDINE 25 MG INJ VIAL PERIprocedural Use ONLY ONE (15:57)
[2016-10-14] MEDS ORDERED: *HYDROmorphone PF 1 MG VIAL PERIprocedural Use ONLY ONE (16:08)
[2016-10-14] MEDS ORDERED: HYDROmorphone HCL PCA 6 MG/30 ML IV ONE (16:16)
[2016-10-14] MEDS: D5-NS + KCL 20 MEQ INJ 1,000 ML IV SCH ×2 (16:30→20:14)
[2016-10-14] MEDS: HYDROmorphone HCL PCA 6 MG/30 ML IV SCH ×3 (17:41→23:43)
[2016-10-14] MEDS ORDERED: *ONDANSETRON 4 MG VIAL PERIprocedural Use ONLY ONE (17:51)
[2016-10-14] MEDS ORDERED: diphenhydrAMINE HCL 25 MG CAP PO PRN (19:30)
[2016-10-14] MEDS ORDERED: diphenhydrAMINE HCL 50 MG/ML VIAL ONE (20:09)
[2016-10-14] MEDS: METOCLOPRAMIDE HCL 10 MG/2 ML VIAL IVS SCH (20:15)
[2016-10-14] MEDS: KETOROLAC TROMETHAMINE 30 MG/ML (IVP) VIAL IVP PRN (20:15)
[2016-10-14] MEDS: SODIUM CHLORIDE 0.9% FLUSH 5 ML FLUSH IVF SCH (20:15)
[2016-10-14] MEDS: PCA - TOTAL MG DILAUDID DELIVERED PER SHIFT SCH (22:00)
[2016-10-14] MEDS: metroNIDAZOLE 500 MG INJ 100 ML IV SCH (23:06)
[2016-10-15] VITALS (18 sets, daily range): BP systolic 101–122; BP diastolic 68–85; PULSE 81–111; RESP 16–18; TEMP 98–98.8; O2SAT 95–100
[2016-10-15] MEDS: D5-NS + KCL 20 MEQ INJ 1,000 ML IV SCH ×4 (02:31→20:18)
[2016-10-15] MEDS: SODIUM CHLOR 0.9% 1000 ML INJ 1,000 ML IV SCH ×4 (02:31→18:05)
[2016-10-15] MEDS: KETOROLAC TROMETHAMINE 30 MG/ML (IVP) VIAL IVP PRN ×3 (02:31→19:23)
[2016-10-15] MEDS: diphenhydrAMINE HCL 50 MG/ML VIAL IV PRN ×3 (02:31→14:50)
[2016-10-15] MEDS: HYDROmorphone HCL PCA 6 MG/30 ML IV SCH ×5 (04:12→20:15)
[2016-10-15] MEDS: LEVOTHYROXINE SODIUM 150 MCG TAB PO SCH (04:12)
[2016-10-15] MEDS: metroNIDAZOLE 500 MG INJ 100 ML IV SCH ×2 (05:31→15:33)
[2016-10-15] MEDS: PCA - TOTAL MG DILAUDID DELIVERED PER SHIFT SCH ×3 (05:31→22:00)
[2016-10-15 06:49] LABS: AUTOMATED NEUTROPHIL # 17.6 TH/MM3 (1.8-7.7); BASOPHIL # 0.1 TH/MM3 (0-0.2); BASOPHIL % 0.3 % (0.0-2.0); HEMATOCRIT 35.9 % (35.0-46.0); HEMO FLAGS DIFF FINAL; LYMPH % 5.8 % (9.0-44.0); LYMPHOCYTE # 1.2 TH/MM3 (1.0-4.8); MEAN CELL VOLUME 84.1 FL (80.0-100.0); MEAN CORPUSCULAR HGB CONC 33.3 % (32.0-36.0); MONO % 5.8 % (0.0-8.0); NEUT % 88.1 % (16.0-70.0); PLATELET COUNT 405 TH/MM3 (150-450); RED BLOOD COUNT 4.27 MIL/MM3 (4.00-5.30); RED CELL DISTRIBUTION WIDTH 14.2 % (11.6-17.2)
[2016-10-15 07:16] LABS: BICARBONATE 27.6 MEQ/L (21.0-32.0)
[2016-10-15 07:37] LABS: CALCIUM-PROTEIN CORRECTED 7.9 MG/DL (8.5-10.1)
[2016-10-15 07:41] LABS: POTASSIUM 2.8 MEQ/L (3.5-5.1)
[2016-10-15] MEDS: ALPRAZolam 0.5 MG TAB PO PRN ×2 (07:54→16:27)
[2016-10-15] MEDS: ONDANSETRON HCL 4 MG/2 ML VIAL IV PRN (08:16)
[2016-10-15] MEDS: PANTOPRAZOLE SOD 40 MG DELAYED RELEASE TAB PO SCH (09:00)
[2016-10-15] MEDS: SODIUM CHLORIDE 0.9% FLUSH 5 ML FLUSH IVF SCH ×2 (09:00→19:25)
[2016-10-15] MEDS: SERTRALINE HCL 50 MG TAB PO SCH (09:00)
[2016-10-15] MEDS: PANTOPRAZOLE SODIUM 40 MG VIAL IVP SCH (09:01)
[2016-10-15] MEDS: METOCLOPRAMIDE HCL 10 MG/2 ML VIAL IVS SCH ×2 (09:02→19:23)
--- NOTE | 2016-10-15 22:50 | HHI.PR ---
Subjective Remarks C/R Surg POD #1 afebrile, VSS UO good Objective - Vital Signs Date Time Temp Pulse Resp B/P Pulse Ox O2 Delivery O2 Flow Rate FiO2 10/15/16 20:19 98.6 82 16 118/80 95 10/14/16 18:00 Nasal Cannula 2 Result Diagram: 10/15/1645 10/15/16544 Objective Remarks PE alert Abd - soft, flat, min tympany, wound dry A/P Assessment and Plan Imp: IVF hydration OOB stable post-op tx to floor Ton Tsang MD Oct 15, 2016 22:50
[2016-10-16] VITALS (9 sets, daily range): BP systolic 100–123; BP diastolic 62–82; PULSE 88–124; RESP 16–20; TEMP 96.9–100.8; O2SAT 96–100
[2016-10-16] MEDS: D5-NS + KCL 20 MEQ INJ 1,000 ML IV SCH ×4 (02:01→22:08)
[2016-10-16] MEDS: HYDROmorphone HCL PCA 6 MG/30 ML IV SCH ×6 (04:13→23:45)
[2016-10-16] MEDS: diphenhydrAMINE HCL 50 MG/ML VIAL IV PRN (05:36)
[2016-10-16] MEDS: KETOROLAC TROMETHAMINE 30 MG/ML (IVP) VIAL IVP PRN ×2 (05:36→20:01)
[2016-10-16 05:58] LABS: AUTOMATED NEUTROPHIL # 8.7 TH/MM3 (1.8-7.7); BASOPHIL % 0.4 % (0.0-2.0); EOSINOPHIL # 0.2 TH/MM3 (0-0.4); EOSINOPHIL % 1.5 % (0.0-4.0); HEMO FLAGS DIFF FINAL; LYMPH % 11.8 % (9.0-44.0); LYMPHOCYTE # 1.3 TH/MM3 (1.0-4.8); MEAN CELL VOLUME 84.4 FL (80.0-100.0); MEAN CORPUSCULAR HEMOGLOBIN 27.7 PG (27.0-34.0); MEAN CORPUSCULAR HGB CONC 32.8 % (32.0-36.0); MONO % 7.7 % (0.0-8.0); NEUT % 78.6 % (16.0-70.0); PLATELET COUNT 359 TH/MM3 (150-450); RED BLOOD COUNT 3.91 MIL/MM3 (4.00-5.30); RED CELL DISTRIBUTION WIDTH 14.4 % (11.6-17.2); WHITE BLOOD COUNT 11.1 TH/MM3 (4.0-11.0)
[2016-10-16] MEDS: PCA - TOTAL MG DILAUDID DELIVERED PER SHIFT SCH ×3 (06:00→22:00)
[2016-10-16 06:28] LABS: BICARBONATE 26.4 MEQ/L (21.0-32.0); POTASSIUM 3.3 MEQ/L (3.5-5.1)
[2016-10-16] MEDS: LEVOTHYROXINE SODIUM 150 MCG TAB PO SCH (06:37)
--- NOTE | 2016-10-16 08:28 | MP ---
cc: VANESSA MARTINEZ M.D. DATE OF SURGERY October 14, 2016 PREOPERATIVE DIAGNOSIS History of Crohn's disease status post right colectomy with ileostomy and An pouch. PROCEDURE Exploratory laparotomy with lysis of adhesions, small-bowel resection, segmental colectomy and creation of an ileocolostomy, closure of ileostomy. POSTOPERATIVE DIAGNOSIS Probable recurrent Crohn's disease of the terminal ileum. SURGEON Dr. Martinez TECHNOLOGY APPLICATIONS ENGINEER Dr. Terrell العلي PROCEDURE The patient was placed in the supine position. After adequate general anesthesia, her abdomen was prepped with Betadine solution and draped in the usual sterile fashion. With Dr. العلي's assistance the previous midline incision was reopened. Upon entering the abdominal cavity, adhesions to the parietal peritoneum were taken down. Exploration revealed inflammatory changes starting at the ileostomy and extending proximally for about 12 inches. The bowel did appear to be thickened and consistent with possible recurrent Crohn's disease. The bowel proximal to this point did appear to be more thin-walled and relatively normal. The colon was palpated and was found to be pretty unremarkable. The liver was normal. Stomach and duodenum were unremarkable. First the ileostomy was taken down creating elliptical incision around the stoma and dissecting it free from the subcutaneous tissues releasing the fascial attachments and returning the bowel back to the abdominal cavity. Additional dissection was necessary to free up the terminal ileum in the left lower quadrant which was stuck quite densely to the left pelvic sidewall. After full mobilization, the bowel did come up to the abdominal wound. The end of the colon was also identified in the right upper quadrant and this was freed by incising along the white line of Toldt. The right ureter was identified and carefully preserved. Dissection then proceeded in mobilizing the hepatic flexure, reentering the lesser sac, immobilizing the right side of the transverse colon. After mobilization, it appeared about 12 inches of the terminal ileum needed to be resected due to stricturing and gross inflammatory change. An avascular plane was created in the mesentery at a softer spot in the bowel and the bowel divided using the TARI stapling device. The mesentery was taken between Arely's, obtaining hemostasis with Vicryl ties. Similar dissection was then performed, taking about 6 inches of the distal ileum back to good blood supply and dividing the bowel again with TARI stapling device, taking the mesentery between Kochers, obtaining hemostasis with Vicryl ties. Bowel continuity was then restored by firing the TARI stapler across the antimesenteric ends of the bowel, closing the enterotomy with a TA-60 stapler. The mesenteric defect was closed with a running Vicryl suture and 3-0 Vicryl crotch suture was placed as well. The bowel was returned to the abdominal cavity. The abdomen was irrigated copiously. Adequate hemostasis was achieved at all sites. The midline incision was closed anatomically reapproximating the midline fascia with a running #1 PDS suture. The subcu tissues were irrigated copiously and the skin closed with a running subcuticular Vicryl suture. The wound area was washed with normal saline and dried, sterile dressing of Telfa and gauze applied. The patient tolerated the procedure quite well and was brought to the recovery room in stable condition. Sponge and needle counts were correct at the end of the procedure. MD SKYLER Puente/FLAVIA /11:17 PM /8:18 AM
[2016-10-16] MEDS: PANTOPRAZOLE SODIUM 40 MG VIAL IVP SCH (09:00)
[2016-10-16] MEDS: ALPRAZolam 0.5 MG TAB PO PRN (09:19)
[2016-10-16] MEDS: METOCLOPRAMIDE HCL 10 MG/2 ML VIAL IVS SCH ×2 (09:20→22:07)
[2016-10-16] MEDS: SERTRALINE HCL 50 MG TAB PO SCH (09:20)
[2016-10-16] MEDS: PANTOPRAZOLE SOD 40 MG DELAYED RELEASE TAB PO SCH (09:20)
[2016-10-16] MEDS: SODIUM CHLORIDE 0.9% FLUSH 5 ML FLUSH IVF SCH ×2 (09:21→22:07)
--- NOTE | 2016-10-16 23:29 | HHI.PR ---
Subjective Remarks C/R Surg POD #2 afebrile, VSS UO good no flatus Objective - Vital Signs Date Time Temp Pulse Resp B/P Pulse Ox O2 Delivery O2 Flow Rate FiO2 10/16/16 22:00 16 10/16/16 19:56 100.8 124 123/82 98 10/14/16 18:00 Nasal Cannula 2 Result Diagram: 10/16/1651810/16/16518 Objective Remarks PE alert Abd - soft, flat, min tympany, wound dry A/P Assessment and Plan Imp: IVF hydration OOB slow PO Ton Tsang MD Oct 16, 2016 23:29
[2016-10-17 04:09] VITALS: BP 108/76; PULSE 104; RESP 16; TEMP 98.5; O2SAT 98
[2016-10-17] MEDS: LEVOTHYROXINE SODIUM 150 MCG TAB PO SCH (05:50)
[2016-10-17] MEDS: HYDROmorphone HCL PCA 6 MG/30 ML IV SCH ×3 (05:52→20:34)
[2016-10-17] MEDS: PCA - TOTAL MG DILAUDID DELIVERED PER SHIFT SCH ×3 (05:53→20:30)
[2016-10-17 08:20] VITALS: BP 117/70; PULSE 103; RESP 20; TEMP 98.7; O2SAT 97
[2016-10-17] MEDS: PANTOPRAZOLE SOD 40 MG DELAYED RELEASE TAB PO SCH (08:32)
[2016-10-17] MEDS: METOCLOPRAMIDE HCL 10 MG/2 ML VIAL IVS SCH ×2 (08:32→20:31)
[2016-10-17] MEDS: PANTOPRAZOLE SODIUM 40 MG VIAL IVP SCH (08:32)
[2016-10-17] MEDS: SERTRALINE HCL 50 MG TAB PO SCH (08:32)
[2016-10-17] MEDS: SODIUM CHLORIDE 0.9% FLUSH 5 ML FLUSH IVF SCH ×2 (08:33→20:30)
[2016-10-17] MEDS: KETOROLAC TROMETHAMINE 30 MG/ML (IVP) VIAL IVP PRN ×2 (09:20→15:11)
[2016-10-17] MEDS: D5-NS + KCL 20 MEQ INJ 1,000 ML IV SCH (14:22)
[2016-10-17 15:38] VITALS: BP 108/70; PULSE 86; RESP 20; TEMP 96.3; O2SAT 99
[2016-10-17] MEDS ORDERED: BISACODYL 10 MG SUPP RECTAL PRN (18:15)
--- NOTE | 2016-10-17 18:34 | HHI.PR ---
Subjective Remarks C/R Surg POD #3 afebrile, VSS UO good no flatus Objective - Vital Signs Date Time Temp Pulse Resp B/P Pulse Ox O2 Delivery O2 Flow Rate FiO2 10/17/16 15:38 96.3 86 20 108/70 99 10/14/16 18:00 Nasal Cannula 2 Result Diagram: 10/16/1651810/16/16518 Objective Remarks PE alert Abd - soft, flat, min tympany, wound dry urge to have BM A/P Assessment and Plan Imp: IVF hydration OOB slow PO dulcolax supp path - reviewed - crohn's of TI, colon clear Ton Tsang MD Oct 17, 2016 18:34
[2016-10-17 20:30] VITALS: RESP 18
[2016-10-18] VITALS (8 sets, daily range): BP systolic 119–133; BP diastolic 74–95; PULSE 84–105; RESP 17–20; TEMP 97.5–98.5; O2SAT 95–100
[2016-10-18] MEDS: HYDROmorphone HCL PCA 6 MG/30 ML IV SCH ×6 (00:23→23:07)
[2016-10-18] MEDS: LEVOTHYROXINE SODIUM 150 MCG TAB PO SCH (05:48)
[2016-10-18] MEDS: PCA - TOTAL MG DILAUDID DELIVERED PER SHIFT SCH ×3 (05:48→21:02)
--- NOTE | 2016-10-18 08:13 | HHI.PR ---
Subjective Remarks POD#4 s/p ileocectomy for Crohn's disease complains of severe pain Objective Vital Signs Date Time Temp Pulse Resp B/P Pulse Ox O2 Delivery O2 Flow Rate FiO2 10/18/16 05:50 18 10/18/16 00:23 18 10/18/16 00:00 97.8 104 20 120/89 97 10/17/16 20:34 18 10/17/16 20:30 18 10/17/16 20:30 18 10/17/16 15:38 96.3 86 20 108/70 99 10/17/16 08:20 98.7 103 20 117/70 97 I/O 10/17/16 10/17/16 10/17/16 10/18/16 10/18/16 10/18/16 07:00 15:00 23:00 07:00 15:00 23:00 Intake Total 769 ml 651 ml 610 ml 875 ml Output Total 600 ml 350 ml Balance 169 ml 651 ml 610 ml 525 ml Intake Oral 240 ml 240 ml IV Total 529 ml 651 ml 610 ml 635 ml Output Urine Total 600 ml 350 ml # Voids 2 # Bowel Movements 0 Result Diagram: 10/16/16 0519 10/16/16 0519 Objective Remarks Abdomen soft, nondistended, tender Wound clean Assessment and Plan Assessment and Plan Check KUB, labs suspect this is awakening peristalsis Meaghan Fisher MD Oct 18, 2016 08:13
[2016-10-18] MEDS: SODIUM CHLORIDE 0.9% FLUSH 5 ML FLUSH IVF SCH ×2 (08:28→21:02)
[2016-10-18] MEDS: PANTOPRAZOLE SODIUM 40 MG VIAL IVP SCH (08:28)
[2016-10-18] MEDS: METOCLOPRAMIDE HCL 10 MG/2 ML VIAL IVS SCH ×2 (08:28→21:00)
[2016-10-18] MEDS: SERTRALINE HCL 50 MG TAB PO SCH (08:28)
[2016-10-18] MEDS: PANTOPRAZOLE SOD 40 MG DELAYED RELEASE TAB PO SCH (08:28)
[2016-10-18 09:52] LABS: HEMATOCRIT 32.6 % (35.0-46.0); MEAN CELL VOLUME 83.9 FL (80.0-100.0); MEAN CORPUSCULAR HEMOGLOBIN 27.4 PG (27.0-34.0); MEAN CORPUSCULAR HGB CONC 32.7 % (32.0-36.0); PLATELET COUNT 347 TH/MM3 (150-450); RED BLOOD COUNT 3.88 MIL/MM3 (4.00-5.30); RED CELL DISTRIBUTION WIDTH 14.3 % (11.6-17.2); REVIEW FLAG FINAL; WHITE BLOOD COUNT 14.8 TH/MM3 (4.0-11.0)
[2016-10-18 10:22] LABS: POTASSIUM 3.2 MEQ/L (3.5-5.1)
--- NOTE | 2016-10-18 10:24 | RADRPT ---
EXAM DATE/TIME: 10/18/2016 09:12 [facility] COMPARISON: CT ABDOMEN & PELVIS W CONTRAST, October 09, 2016, 8:23. ABDOMEN UPRIGHT ONLY, October 09, 2016, 3: 58. ABDOMEN KUB ONLY, November 25, 2015, 10:48. INDICATIONS : Patient complains of abdomen pain. MEDICAL HISTORY : Crohn's disease. SURGICAL HISTORY : Ileostomy ENCOUNTER: Initial ACUITY: 1 day PAIN SCORE: 7/10 LOCATION: Abdomen FINDINGS: 2 supine AP views of the abdomen. Several mildly distended air-filled loops of small bowel in the mid abdomen. Mildly distended air-filled colon diffusely. Postsurgical findings with tory identified i n the right in the abdomen. Osseous structures within normal limits. No abnormal abdominal calcificat ion. CONCLUSION: Nonspecific bowel gas pattern with air-filled mild distention of multiple loops of small bowel and co byron. There are present ileus. Enrique García MD on October 18, 2016 at 10:21 Board Certified Radiologist. This report was verified electronically.
[2016-10-18] MEDS: POTASSIUM CHLOR 20 MEQ PREMIX 100 ML IV PRN (10:43)
[2016-10-18] MEDS: D5-NS + KCL 20 MEQ INJ 1,000 ML IV SCH (11:18)
[2016-10-18] MEDS: ONDANSETRON HCL 4 MG/2 ML VIAL IV PRN (11:54)
[2016-10-19] MEDS: D5-NS + KCL 20 MEQ INJ 1,000 ML IV SCH ×3 (04:24→21:04)
[2016-10-19] MEDS: LEVOTHYROXINE SODIUM 150 MCG TAB PO SCH (04:25)
[2016-10-19 04:38] VITALS: RESP 18
[2016-10-19] MEDS: PCA - TOTAL MG DILAUDID DELIVERED PER SHIFT SCH ×3 (04:38→21:03)
[2016-10-19] MEDS: PANTOPRAZOLE SOD 40 MG DELAYED RELEASE TAB PO SCH (07:20)
[2016-10-19] MEDS: PANTOPRAZOLE SODIUM 40 MG VIAL IVP SCH (07:20)
[2016-10-19] MEDS: SERTRALINE HCL 50 MG TAB PO SCH (07:21)
[2016-10-19] MEDS: METOCLOPRAMIDE HCL 10 MG/2 ML VIAL IVS SCH (07:21)
[2016-10-19] MEDS: SODIUM CHLORIDE 0.9% FLUSH 5 ML FLUSH IVF SCH ×2 (07:24→21:03)
[2016-10-19] MEDS: HYDROmorphone HCL PCA 6 MG/30 ML IV SCH ×4 (07:24→21:14)
[2016-10-19 08:00] VITALS: BP 127/88; PULSE 96; RESP 20; TEMP 98.6; O2SAT 97
--- NOTE | 2016-10-19 08:24 | HHI.PR ---
Subjective Remarks POD#5 s/p ileocectomy for Crohn's disease some improvement but still quite painful Passing gas and stool Objective Vital Signs Date Time Temp Pulse Resp B/P Pulse Ox O2 Delivery O2 Flow Rate FiO2 10/19/16 07:24 17 10/19/16 04:38 18 10/19/16 04:38 18 10/18/16 23:58 97.6 84 20 119/78 95 10/18/16 23:07 18 10/18/16 21:02 18 10/18/16 20:49 18 10/18/16 20:00 98.0 102 20 125/84 97 10/18/16 18:35 17 10/18/16 16:00 98.4 100 20 133/95 100 10/18/16 14:28 17 10/18/16 14:00 17 10/18/16 12:00 98.5 103 20 128/89 97 10/18/16 10:10 17 10/18/16 08:30 17 I/O 10/18/16 10/18/16 10/18/16 10/19/16 10/19/16 10/19/16 07:00 15:00 23:00 07:00 15:00 23:00 Intake Total 875 ml 817 ml 738 ml 620 ml Output Total 350 ml Balance 525 ml 817 ml 738 ml 620 ml Intake Oral 240 ml 120 ml 240 ml 120 ml IV Total 635 ml 697 ml 498 ml 500 ml Output Urine Total 350 ml # Voids 4 2 2 # Bowel Movements 0 1 1 1 Result Diagram: 10/18/16 0934 10/18/16 0934 Objective Remarks Abdomen soft, mild distension, tender Wound clean Assessment and Plan Assessment and Plan mild ileus complains of severe gas pain - stop Reglan MOBILIZE Meaghan Fisher MD Oct 19, 2016 08:23
[2016-10-19 12:00] VITALS: BP 132/85; PULSE 100; RESP 20; TEMP 97.8; O2SAT 95
[2016-10-19] MEDS: ONDANSETRON HCL 4 MG/2 ML VIAL IV PRN (12:29)
[2016-10-19 12:54] LABS: BICARBONATE 30.2 MEQ/L (21.0-32.0); POTASSIUM 3.4 MEQ/L (3.5-5.1)
[2016-10-19 16:00] VITALS: BP 128/89; PULSE 98; RESP 18; TEMP 98.4; O2SAT 96
[2016-10-19 20:00] VITALS: BP 134/96; PULSE 97; RESP 20; TEMP 97.4; O2SAT 98
[2016-10-19 20:30] VITALS: RESP 18
[2016-10-19] MEDS: POTASSIUM CHLOR 20 MEQ PREMIX 100 ML IV PRN (21:04)
[2016-10-20] VITALS (7 sets, daily range): BP systolic 124–135; BP diastolic 81–91; PULSE 95–113; RESP 18–21; TEMP 97.2–98.8; O2SAT 95–96
[2016-10-20] MEDS: HYDROmorphone HCL PCA 6 MG/30 ML IV SCH ×5 (03:00→23:39)
[2016-10-20] MEDS: ALPRAZolam 0.5 MG TAB PO PRN (05:12)
[2016-10-20] MEDS: LEVOTHYROXINE SODIUM 150 MCG TAB PO SCH (05:12)
[2016-10-20] MEDS: PCA - TOTAL MG DILAUDID DELIVERED PER SHIFT SCH ×3 (05:13→20:05)
--- NOTE | 2016-10-20 06:50 | RADRPT ---
EXAM DATE/TIME: 10/20/2016 05:07 [facility] COMPARISON: ABDOMEN KUB ONLY, October 18, 2016, 9:12. CT ABDOMEN & PELVIS W CONTRAST, October 09, 2016, 8:23. INDICATIONS : Abdominal pain, nausea, evaluate ileus MEDICAL HISTORY : crohn's disease SURGICAL HISTORY : ileostomy, closed ileostomy, exploratory lap ENCOUNTER: Subsequent ACUITY: 4 - 6 days PAIN SCORE: 9/10 LOCATION: Bilateral abdomen FINDINGS: Compare October 18. Gaseous distention of bowel is similar to prior study. Multiple bowel tory ri ght lower quadrant. No free air identified. Bones intact. CONCLUSION: 1. Stable gaseous distention of bowel compared with October 18. Darrell Montero MD on October 20, 2016 at 6:45 Board Certified Radiologist. This report was verified electronically.
[2016-10-20] MEDS: D5-NS + KCL 20 MEQ INJ 1,000 ML IV SCH ×2 (08:53→20:05)
[2016-10-20] MEDS: PANTOPRAZOLE SODIUM 40 MG VIAL IVP SCH (08:54)
[2016-10-20] MEDS: PANTOPRAZOLE SOD 40 MG DELAYED RELEASE TAB PO SCH (08:54)
[2016-10-20] MEDS: SERTRALINE HCL 50 MG TAB PO SCH (08:54)
[2016-10-20] MEDS: SODIUM CHLORIDE 0.9% FLUSH 5 ML FLUSH IVF SCH ×2 (08:54→20:04)
--- NOTE | 2016-10-20 17:05 | HHI.PR ---
Subjective Remarks C/R Surg POD #6 afebrile, VSS UO good BM/flatus X2 Objective - Vital Signs Date Time Temp Pulse Resp B/P Pulse Ox O2 Delivery O2 Flow Rate FiO2 10/20/16 15:20 17 10/20/16 12:00 97.2 95 129/88 95 Result Diagram: 10/18/16 0934 10/19/16 1212 Objective Remarks PE alert Abd - soft, flat, min tympany, wound dry A/P Assessment and Plan Imp: IVF hydration OOB slow PO dulcolax supp prn KUB unremarkable Ton Tsang MD Oct 20, 2016 17:05
[2016-10-20] MEDS: ALVIMOPAN 12 MG CAPSULE PO SCH (20:05)
[2016-10-20] MEDS: ONDANSETRON HCL 4 MG/2 ML VIAL IV PRN (23:34)
[2016-10-21] VITALS: BP 134/81; PULSE 79; RESP 21; TEMP 98.3; O2SAT 98
[2016-10-21] MEDS: PCA - TOTAL MG DILAUDID DELIVERED PER SHIFT SCH ×2 (05:54→12:47)
[2016-10-21] MEDS: LEVOTHYROXINE SODIUM 150 MCG TAB PO SCH (05:55)
[2016-10-21] MEDS: PANTOPRAZOLE SODIUM 40 MG VIAL IVP SCH (07:10)
[2016-10-21] MEDS: SERTRALINE HCL 50 MG TAB PO SCH (08:01)
[2016-10-21] MEDS: ALVIMOPAN 12 MG CAPSULE PO SCH ×2 (08:01→21:33)
[2016-10-21] MEDS: PANTOPRAZOLE SOD 40 MG DELAYED RELEASE TAB PO SCH (08:01)
[2016-10-21] MEDS: ALPRAZolam 0.5 MG TAB PO PRN (08:01)
[2016-10-21] MEDS: METOCLOPRAMIDE HCL 10 MG/2 ML VIAL IV PUSH SCH ×2 (08:02→11:36)
[2016-10-21] MEDS: HYDROmorphone HCL PCA 6 MG/30 ML IV SCH ×2 (08:07→12:44)
[2016-10-21] MEDS: SODIUM CHLORIDE 0.9% FLUSH 5 ML FLUSH IVF SCH ×2 (08:09→21:33)
[2016-10-21 08:16] VITALS: BP 117/77; PULSE 94; RESP 16; TEMP 97.4; O2SAT 94
[2016-10-21 12:30] VITALS: BP 127/88; PULSE 96; RESP 17; TEMP 98.2; O2SAT 98
[2016-10-21 16:03] VITALS: BP 137/86; PULSE 98; RESP 17; TEMP 98.4; O2SAT 100
[2016-10-21] MEDS ORDERED: oxyCODONE/ACETAMINOPHEN 5 MG/325 MG TAB PO PRN (17:15)
[2016-10-21] MEDS ORDERED: METOCLOPRAMIDE HCL 10 MG/2 ML VIAL IV PUSH PRN (17:15)
[2016-10-21] MEDS: oxyCODONE/ACETAMINOPHEN 10 MG/325 MG TAB PO PRN ×2 (18:15→21:33)
[2016-10-21 20:00] VITALS: BP 130/93; PULSE 83; RESP 21; TEMP 99; O2SAT 99
--- NOTE | 2016-10-21 20:17 | HHI.PR ---
Subjective Remarks C/R Surg POD #7 afebrile, VSS UO good BM/flatus X2 Objective - Vital Signs Date Time Temp Pulse Resp B/P Pulse Ox O2 Delivery O2 Flow Rate FiO2 10/21/16 16:03 98.4 98 17 137/86 100 Result Diagram: 10/18/16 0934 10/19/16 1212 Objective Remarks PE alert Abd - soft, flat, min tympany, wound dry A/P Assessment and Plan Imp: IVF hydration OOB PO brinda dc RELIEF OPERATOR Ton Tsang MD Oct 21, 2016 20:17
[2016-10-22] VITALS: BP 116/75; PULSE 80; RESP 20; TEMP 98.3; O2SAT 96
[2016-10-22] MEDS: oxyCODONE/ACETAMINOPHEN 10 MG/325 MG TAB PO PRN ×3 (02:13→10:06)
[2016-10-22] MEDS: LEVOTHYROXINE SODIUM 150 MCG TAB PO SCH (06:07)
[2016-10-22] MEDS: PANTOPRAZOLE SODIUM 40 MG VIAL IVP SCH (06:58)
[2016-10-22 08:00] VITALS: BP 130/86; PULSE 84; RESP 17; TEMP 98; O2SAT 98
[2016-10-22] MEDS: ALVIMOPAN 12 MG CAPSULE PO SCH (08:51)
[2016-10-22] MEDS: SERTRALINE HCL 50 MG TAB PO SCH (08:51)
[2016-10-22] MEDS: PANTOPRAZOLE SOD 40 MG DELAYED RELEASE TAB PO SCH (08:51)
[2016-10-22] MEDS: SODIUM CHLORIDE 0.9% FLUSH 5 ML FLUSH IVF SCH (08:53)
[2016-10-22] MEDS ORDERED: OXYC1TAB36 PO (09:07)
--- NOTE | 2016-11-16 10:34 | MD ---
cc: VANESSA MARTINEZ M.D. ADMISSION DATE: 10/13/2016 DISCHARGE DATE: 10/22/2016 ADMISSION DIAGNOSIS History of Crohn disease, attention to ileostomy. PROCEDURE: 10/14/2016, exploratory laparotomy with lysis of adhesions, small-bowel resection, segmental colectomy and creation of an ileocolostomy, closure of ileostomy. DISCHARGE DIAGNOSES Crohn disease of the terminal ileum History of Crohn's disease of the terminal ileum HISTORY OF PRESENT ILLNESS Ms. Woo is a 31-year-old female who presented several months ago with severe Crohn disease of the terminal ileum. After rather lengthy hospitalization, she eventually came to surgery at which point she had a resection of the terminal ileum and right colon with formation of an ileostomy due to the condition of the bowel at the time of her surgery. She has had a rather slow postop recovery and has avoided closing the ileostomy for many reasons. The patient has been admitted several times for dehydration due to high ileostomy outputs. Recently she has had more pain and tenderness around the ileostomy and has been found to have what looks like recurrence just proximal to the ileostomy consistent with Crohn disease, despite medical management of her disease. The patient was therefore admitted at this time for exploratory laparotomy, probable segmental ileal resection and closure of her ileostomy. Please see the admitting history and physical for more complete past medical and surgical history. PERTINENT PHYSICAL A very pleasant thin female in no acute distress. Abdomen was soft and benign, a little tympany. Stoma was pink and patent. No obvious mucosal changes, peristomal skin was intact. No masses or significant tenderness. Anal inspection revealed benign canal. Digital exam revealed good tone with no masses or tenderness. HOSPITAL COURSE After admission, the patient was taken to the operating room on October 14, 2016 at which point she underwent exploratory laparotomy with lysis of adhesions, small-bowel resection, segmental colectomy and creation of an ileocolostomy closing her ileostomy. She was found to have recurrence of Crohn disease for about the distal 8-12 inches of her ileum. This area was resected and the proximal ileum was found to be normal as was the colon. She tolerated the procedure quite well. Postoperatively she did have some ileus and delay in return of bowel function. She was treated with IV fluids and pain medication. She eventually began to start passing flatus and began having some liquid stools. LEAD [employer]PER[employer]OR pump was able to be discontinued. She was advanced on her diet slowly and continued to have better bowel function. The patient was eating well enough to be considered for discharge home on the first October 2016. Final pathology revealed acute colitis of the small bowel consistent with Crohn disease. No evidence of dysplasia or malignancy. DISCHARGE INSTRUCTIONS The patient was discharged eating a regular diet. She was encouraged to ambulate daily avoiding any heavy lifting or straining. All preop medications were to be resumed. The patient will be seen in the office in one weeks' time for routine follow-up. If any problems occur prior to the scheduled office visit the patient was encouraged to call for more urgent attention. MD SKYLER Puente/GAYE /4:40 PM /10:26 AM
== END 2016-10-22 11:21 | disposition home or self-care (01) | DRG 331 ==
LOC: NEPHCDU 10-13 14:32 → N07B 10-14 14:18 → HCIS 10-14 16:04 → HCIN 10-14 18:16 → N07B 10-15 18:24
PROVIDERS: ADMIT Colon & Rectal Surgery; ATTEND Colon & Rectal Surgery
PROC: 0DBB0ZZ Excision of Ileum, Open Approach (ICD-10-PCS; 2016-10-14)
PROC: 0DBK0ZZ Excision of Ascending Colon, Open Approach (ICD-10-PCS; principal; 2016-10-14 13:52)
DX: K50.118 Crohn's disease of large intestine with other complication (principal); Z88.1 Allergy status to other antibiotic agents; Z91.040 Latex allergy status
CPT/HCPCS: 74000; 76937; 80048; 83735; 84155; 85025; 85027; 88304; 88307; 94150; C9113; J0131; J0690; J1100; J1130; J1170; J1200; J1885; J2175; J2250; J2370; J2405; J2765; J3010; J3480; J7030; J7120

== ENCOUNTER → 2017-04-22 | Outpatient (CLI) | payer OTHER ==
[~2017-04-22] MED LIST changes: -CIMZ200K SQ; -HYDR-3533 PO; -LOMO2.5T PO; +OXYC1TAB36 PO; -QUES4POW2 PO
== END ==
LOC: HPND 07:40
PROVIDERS: ATTEND Obstetrics & Gynecology
DX: O99.612 Diseases of the digestive system complicating pregnancy, second trimester (principal); O09.292 Supervision of pregnancy with other poor reproductive or obstetric history, second trimester; O99.282 Endocrine, nutritional and metabolic diseases complicating pregnancy, second trimester; K50.10 Crohn's disease of large intestine without complications
CPT/HCPCS: 76811

== ENCOUNTER → 2017-05-22 | Outpatient (CLI) | payer OTHER | LOC: HPND 09:06 | PROVIDERS: ATTEND Obstetrics & Gynecology | DX: O99.612 Diseases of the digestive system complicating pregnancy, second trimester (principal); K50.10 Crohn's disease of large intestine without complications; K50.80 Crohn's disease of both small and large intestine without complications; O26.892 Other specified pregnancy related conditions, second trimester; O35.1XX0 Maternal care for (suspected) chromosomal abnormality in fetus, not applicable or unspecified; Z3A.00 Weeks of gestation of pregnancy not specified | CPT/HCPCS: 76816 ==

== ENCOUNTER → 2017-06-19 | Outpatient (CLI) | payer OTHER | LOC: HPND 07:42 | PROVIDERS: ATTEND Obstetrics & Gynecology | DX: O35.1XX0 Maternal care for (suspected) chromosomal abnormality in fetus, not applicable or unspecified (principal); O99.612 Diseases of the digestive system complicating pregnancy, second trimester | CPT/HCPCS: 76816 ==

== ENCOUNTER 2017-07-01 19:44 | Emergency (ER) | payer OTHER ==
[~2017-07-01 19:44] MED LIST changes: +VITA500T35 PO; -VITA500T49 PO
--- NOTE | 2017-07-01 20:54 | PD ---
HPI Chief Complaint pressure/ctx Date Seen: Jul 01, 2017 Time Seen: 20:48 Travel History International Travel<30 Days: No Contact w/Intl Traveler<30Days: No Known Affected Area: No History of Present Illness HPI 31y/o @ 28.0wks presents for ctx and pressure starting this evening. No LOF or VB. +FM. She has no PNC since 05/26 when she was dismissed from Dr. Nino's office for non-compliance. Pt has a h/o Crohn's dz with extensive bowel sx and resections/ostomies. She also has a h/o CS x1 and thyroidectomy. Weeks Gestation: 28 Para: 1 : 3 Last Menstrual Period: Jul 01, 2017 History Past Medical History Narrative Medical Crohn's dz hypothyroidism gastroparesis/malabsorption Obstetric History Obstetric History CS x1 Past Surgical History Narrative Surgical CS x1 multiple bowel sx/ostomies/reversals unilateral oopherectomy thyroidectomy Family History Family History: Negative Social History Alcohol Use: No Tobacco Use: Yes (1-2 cigs per day) Substance Abuse: No Allergies-Medications (Allergen,Severity, Reaction): Coded Allergies: codeine (Unverified Allergy, Mild, HIVES, 04/07/17) latex (Unverified Allergy, Mild, RASH, 04/07/17) levofloxacin (Unverified Adverse Reaction, Intermediate, HOURSE THROUT AND SOB, 04/07/17) Home Meds Active Scripts Oxycodone-Acetaminophen (Oxycodone-Acetaminophen) 10-325 mg Tab, 1 TAB PO Q4H Y for PAIN SCALE 6 TO 10, #30 TAB 0 Refills Prov:Ton Tsang MD 10/22/16 Ondansetron Odt (Zofran Odt) 4 Mg Tab, 4 MG SL Q8HR Y for Nausea/Vomiting, #30 TAB 0 Refills Prov:Richard Lee MD 09/14/16 Reported Medications Cyanocobalamin (Vitamin B12) 500 Mcg Tab, 3000 MCG PO DAILY, #1 BOTTLE 07/15/16 Cholecalciferol (Vitamin D-3) 2,000 Unit Tab, 92079 MG PO bi weekly 07/15/16 Levothyroxine (Synthroid) 150 Mcg Tab, 150 MCG PO DAILY for Thyroid, #30 TAB 0 Refills 07/15/16 Sertraline (Zoloft) 50 Mg Tab, 50 MG PO DAILY, #30 TAB 0 Refills 07/15/16 Pantoprazole (Protonix) 20 Mg Tab, 20 MG PO DAILY for Reflux, #30 TAB 0 Refills 07/15/16 Alprazolam (Xanax) 0.5 Mg Tab, 0.5 MG PO Q6H Y for ANXIETY, TAB 0 Refills 07/15/16 Review of Systems Except as stated in HPI: all other systems reviewed are Neg Physical Exam Narrative GENERAL: Well-nourished, well-developed patient. SKIN: Warm and dry. HEAD: Normocephalic and atraumatic. EYES: No scleral icterus. No injection or drainage. ENT: No nasal drainage noted. Mucous membranes pink. ABDOMEN/GI: Abdomen soft, non-tender, gravid EXTREMITIES: No cyanosis BACK: Nontender without obvious deformity. NEUROLOGICAL: Awake and alert. Motor and sensory grossly within normal limits. FHTs: cat 1, age appropriate TOCO: quiet CVX: cl/50/-3 Data Data Vital Signs Reviewed: Yes Orders Orders Vital Signs (Adult) .ON ADMISSION (07/01/17 20:36) ^ Labor Status (07/01/17 20:36) Urinalysis - C+S If Indicated (07/01/17 20:36) ^ Non Stress Test (07/01/17 20:36) Ed Discharge Order (07/01/17 20:48) MDM Narrative Course / MDM 31y/o with h/o CSx1, crohn's dz, hypothyroidism presents for cramping/ ctx. -- FHTs age appropriate -- toco quiet with the exception of 2 ctx at the beginning -- cvx closed Stable for d/c home. Advised on importance of PNC. Counseled on option of [facility] since pt states all other practices in [facility] have refused her. Diagnosis Diagnosis: Primary Impression: 28 weeks gestation of Additional Impressions: Cramping complicating , antepartum Crohn's disease Marcia Mittal MD Jul 01, 2017 20:54
[2017-07-01 21:25] LABS: BACTERIA, URINE RARE /hpf; BLOOD, URINE NEG (NEG); COMMENT (UR) CULT NOT INDICATED; CULTURE IF INDICATED CULT NOT INDICATED; GLUCOSE,URINE NEG (NEG); KETONE, URINE NEG (NEG); NITRITE,URINE NEG (NEG); PH, URINE 7.5 (5.0-8.5); SQUAMOUS EPITHELIAL CELL URINE <1 /hpf (0-5); URINE COLOR LIGHT-YELLOW (YELLW/STRAW)
== END 2017-07-01 20:58 | disposition home or self-care (01) ==
LOC: HOBED 19:44
DX: O26.893 Other specified pregnancy related conditions, third trimester (principal); R10.9 Unspecified abdominal pain; O99.613 Diseases of the digestive system complicating pregnancy, third trimester; O99.283 Endocrine, nutritional and metabolic diseases complicating pregnancy, third trimester; E03.9 Hypothyroidism, unspecified; O99.333 Smoking (tobacco) complicating pregnancy, third trimester; Z3A.28 28 weeks gestation of pregnancy
CPT/HCPCS: 81001; 99284

== ENCOUNTER → 2017-07-31 | Outpatient (CLI) | payer OTHER ==
[~2017-07-31] MED LIST changes: +SYNT300T PO
== END ==
LOC: HPND 07:51
PROVIDERS: ATTEND Obstetrics & Gynecology
DX: O35.1XX0 Maternal care for (suspected) chromosomal abnormality in fetus, not applicable or unspecified (principal); O99.613 Diseases of the digestive system complicating pregnancy, third trimester; K50.80 Crohn's disease of both small and large intestine without complications
CPT/HCPCS: 76816

== ENCOUNTER 2017-08-11 05:03 | Observation (INO) | payer OTHER ==
[2017-08-11] VITALS (21 sets, daily range): BP systolic 112–125; BP diastolic 67–80; PULSE 81–99; RESP 16–18; TEMP 98.1–98.9
[~2017-08-11] VITALS: Ht 170.2 cm; Wt 64.0 kg
[~2017-08-11 05:03] MED LIST changes: -SYNT300T PO
--- NOTE | 2017-08-11 05:53 | PD ---
HPI Chief Complaint cramping and vaginal bleeding Date Seen: Aug 11, 2017 Time Seen: 05:37 Travel History International Travel<30 Days: No Contact w/Intl Traveler<30Days: No Known Affected Area: No History of Present Illness HPI Pt is a 31y/o @ 33.6wks. She has PNC with Dr. Martinez. She presents for evaluation of cramping and VB. She states that she urinated at 4am and saw blood in the toilet and when she wiped. No recent abdominal trauma. No known previa. +FM. No LOF. is c/b: -- extensive bowel history -- h/o CS x1 (arrest of dilation) -- hypothyroidism -- tobacco use Weeks Gestation: 33 Para: 1 : 3 History Past Medical History Narrative Medical hypothyroidism bowel history anxiety/depression h/o TIA (medication side effect) Obstetric History Obstetric History CS x1 AB x1 Past Surgical History Narrative Surgical bowel surgeries thyroidectomy ankle unilateral salpingoopherectomy breast augmentation Family History Family History: Negative Social History Alcohol Use: No Tobacco Use: Yes (1-2 per day) Substance Abuse: No Allergies-Medications (Allergen,Severity, Reaction): Coded Allergies: codeine (Unverified Allergy, Mild, HIVES, 04/07/17) latex (Unverified Allergy, Mild, RASH, 04/07/17) levofloxacin (Unverified Adverse Reaction, Intermediate, HOURSE THROUT AND SOB, 04/07/17) Home Meds Active Scripts Oxycodone-Acetaminophen (Oxycodone-Acetaminophen) 10-325 mg Tab, 1 TAB PO Q4H Y for PAIN SCALE 6 TO 10, #30 TAB 0 Refills Prov:Ton Tsang MD 10/22/16 Ondansetron Odt (Zofran Odt) 4 Mg Tab, 4 MG SL Q8HR Y for Nausea/Vomiting, #30 TAB 0 Refills Prov:Richard Lee MD 09/14/16 Reported Medications Cyanocobalamin (Vitamin B12) 500 Mcg Tab, 3000 MCG PO DAILY, #1 BOTTLE 07/15/16 Cholecalciferol (Vitamin D-3) 2,000 Unit Tab, 32804 MG PO bi weekly 07/15/16 Levothyroxine (Synthroid) 150 Mcg Tab, 150 MCG PO DAILY for Thyroid, #30 TAB 0 Refills 07/15/16 Sertraline (Zoloft) 50 Mg Tab, 50 MG PO DAILY, #30 TAB 0 Refills 07/15/16 Pantoprazole (Protonix) 20 Mg Tab, 20 MG PO DAILY for Reflux, #30 TAB 0 Refills 07/15/16 Alprazolam (Xanax) 0.5 Mg Tab, 0.5 MG PO Q6H Y for ANXIETY, TAB 0 Refills 07/15/16 Review of Systems Except as stated in HPI: all other systems reviewed are Neg Physical Exam Narrative General: well developed, well nourished, no acute distress HEENT: normocephalic atraumatic, extraocular movements intact, neck supple Abdomen: soft, gravid, nontender, nondistended Extremities: full range of motion Skin: normal coloration, no rashes, no suspicious skin lesions noted Neurologic: cranial nerves 2-12 grossly intact, normal muscle tone, normal gait Psychiatric: normal mood and affect, appropriate FHTs: 125, +accels, no decels, moderate variability, reactive [place]: irritable Cvx: cl/th/high, dark blood on glove Data Data Vital Signs Reviewed: Yes Orders Orders Vital Signs (Adult) .ON ADMISSION (08/11/17 05:34) ^ Labor Status (08/11/17 05:34) Urinalysis - C+S If Indicated (08/11/17 05:34) ^ Non Stress Test (08/11/17 05:34) MDM Plan 31y/o @ 33.6wks with vaginal bleeding, no known previa. -- admit to [facility] -- regular diet, SLIV -- CBC, T&S -- US -- CEFM/toco -- BMZ Dispo: Dr. Martinez (customer service professional) notified of pt status and agrees with plan of care. Courtesy orders placed. He will assume care of the pt. Diagnosis Diagnosis: Primary Impression: 33 weeks gestation of Additional Impressions: with third trimester bleeding, antepartum History of Hypothyroidism Anxiety and depression Marcia Mittal MD Aug 11, 2017 05:53
[2017-08-11] MEDS ORDERED: ONDANSETRON HCL 4 MG/2 ML VIAL IV PUSH PRN (06:00)
[2017-08-11] MEDS ORDERED: ONDANSETRON ODT 4 MG TAB PO PRN (06:00)
[2017-08-11] MEDS ORDERED: ZOLPIDEM TARTRATE 5 MG TAB PO PRN (06:00)
[2017-08-11] MEDS ORDERED: SODIUM CHLORIDE 0.9% FLUSH 10 ML FLUSH IV FLUSH PRN (06:00)
[2017-08-11] MEDS ORDERED: ACETAMINOPHEN 325 MG TAB PO PRN (06:00)
[2017-08-11 06:03] LABS: BACTERIA, URINE RARE /hpf; BLOOD, URINE LARGE (NEG); CALCIUM OXALATE CRYSTALS,URINE MANY /hpf; COMMENT (UR) CULTURE INDICATED; CULTURE IF INDICATED CULTURE INDICATED; GLUCOSE,URINE NEG (NEG); KETONE, URINE NEG (NEG); MUCUS URINE FEW /lpf (OCC); NITRITE,URINE NEG (NEG); PH, URINE 6.5 (5.0-8.5); SQUAMOUS EPITHELIAL CELL URINE 18 /hpf (0-5); URINE COLOR YELLOW (YELLW/STRAW)
[2017-08-11] MEDS: BETAMETHASONE SOD PHOS/ACETATE SUSP 30 MG/5 ML VIAL IM SCH (06:13)
[2017-08-11 07:28] LABS: BASOPHIL % 0.4 % (0.0-2.0); EOSINOPHIL % 0.2 % (0.0-4.0); HEMATOCRIT 31.3 % (35.0-46.0); HEMO FLAGS DIFF FINAL; LYMPH % 11.3 % (9.0-44.0); LYMPHOCYTE # 0.9 TH/MM3 (1.0-4.8); MEAN CELL VOLUME 87.2 FL (80.0-100.0); MEAN CORPUSCULAR HEMOGLOBIN 30.2 PG (27.0-34.0); MEAN CORPUSCULAR HGB CONC 34.7 % (32.0-36.0); MONO % 9.8 % (0.0-8.0); NEUT % 78.3 % (16.0-70.0); PLATELET COUNT 346 TH/MM3 (150-450); RED BLOOD COUNT 3.59 MIL/MM3 (4.00-5.30); RED CELL DISTRIBUTION WIDTH 13.4 % (11.6-17.2); WHITE BLOOD COUNT 7.7 TH/MM3 (4.0-11.0)
[2017-08-11] MEDS ORDERED: SYNT300T PO (07:30)
[2017-08-11] MEDS: SODIUM CHLORIDE 0.9% FLUSH 10 ML FLUSH IV FLUSH SCH ×2 (08:06→20:43)
[2017-08-11] MEDS: DOCUSATE SODIUM 100 MG CAP PO SCH (08:07)
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
[2017-08-11] MEDS: MULTIVIT/MIN/PREN/FOL AC/IRON PRENATAL TAB PO SCH (10:36)
[2017-08-11] MEDS: LEVOTHYROXINE SODIUM 100 MCG TAB PO SCH (10:36)
[2017-08-11] MEDS: PANTOPRAZOLE SOD 20 MG DELAYED RELEASE TAB PO SCH (10:36)
[2017-08-12] VITALS (12 sets, daily range): BP systolic 105–130; BP diastolic 59–82; PULSE 81–93; RESP 17–18; TEMP 98.1–98.7
[2017-08-12] MEDS: LEVOTHYROXINE SODIUM 100 MCG TAB PO SCH (05:55)
[2017-08-12] MEDS: BETAMETHASONE SOD PHOS/ACETATE SUSP 30 MG/5 ML VIAL IM SCH (05:56)
[2017-08-12] MEDS: DOCUSATE SODIUM 100 MG CAP PO SCH (08:30)
[2017-08-12] MEDS: MULTIVIT/MIN/PREN/FOL AC/IRON PRENATAL TAB PO SCH (08:30)
[2017-08-12] MEDS: PANTOPRAZOLE SOD 20 MG DELAYED RELEASE TAB PO SCH (08:30)
[2017-08-12] MEDS ORDERED: [UNRECOGNIZED DRUG - CODE] PO (08:36)
[2017-08-12] MEDS ORDERED: CHOL1CHW5 (08:36)
[2017-08-12] MEDS ORDERED: cyanocobalamin (08:41)
[2017-08-12] MEDS ORDERED: cyanocobalamin SL (08:44)
[2017-08-12] MEDS ORDERED: APRI0.372 PO (08:45)
[2017-08-12] MEDS ORDERED: ENTO3CAP5 PO (08:45)
[2017-08-12] MEDS ORDERED: COLE625 PO (08:47)
[2017-08-12] MEDS ORDERED: prenatal vitamin PO (08:49)
[2017-08-12] MEDS: SODIUM CHLORIDE 0.9% FLUSH 10 ML FLUSH IV FLUSH SCH ×2 (10:26→21:00)
--- NOTE | 2017-08-12 14:03 | MB ---
cc: CHANI BRICE DATE OF CONSULTATION: 08/12/2017 The patient had consultation to Dr. Monster QUEVEDO today regarding her bleeding and intermittent decelerations. I reviewed the recommendation to remain inpatient for 48 hours without bleeding and 12 hours without decelerations. If those criteria were met, will then discharge home and do outpatient monitoring with DPPs and would return a.s.a.p. for signs of unusual pain or bleeding or decreased movement. The patient would very much like to go home and it was explained if she goes home prior to that recommendation, she has to be aware of a higher risk of demise, stillborn, i.e., loss and she would have to assume responsibility of not following through with recommendations of the specialist and myself. I gave her a copy of Dr. Chen report for review. Will monitor her until 5 o'clock and she will decide if she wants to go or stay. If she goes home today will have her do a repeat biophysical tomorrow on and then one on Thursday. MD ELIANA Vanegas/ROLANDO /1:09 PM /1:40 PM STELLA
[2017-08-12] MEDS ORDERED: LACTATED RINGER'S 1000 ML INJ 1,000 ML IV ONE (18:45)
[2017-08-13 05:52] VITALS: BP 123/65; PULSE 88
[2017-08-13] MEDS: LEVOTHYROXINE SODIUM 100 MCG TAB PO SCH (06:00)
[2017-08-13 08:04] VITALS: BP 119/78; PULSE 82
[2017-08-13 08:05] VITALS: RESP 20; TEMP 97.2
[2017-08-14 08:27] LABS: BATH SALTS (MDPV) UR NEG (NEG); ECSTASY (MDMA) UR NEG (NEG); HEROIN (6-ACETYLMORPHINE) UR NEG (NEG); K2 SPICE UR NEG (NEG); OBGABAPENTIN UR NEG (NEG); OBHYDROMORPHONE U NEG (NEG); OBMETHADONE UR NEG (NEG); PHENCYCLIDINE URINE NEG (NEG)
[2017-08-15] MEDS ORDERED: CYAN100025 SL (10:53)
[2017-08-15] MEDS ORDERED: PREN28TA2 PO (10:55)
== END 2017-08-13 08:48 | disposition home or self-care (01) ==
LOC: HOBED 05:03 → H2EA 05:56
PROVIDERS: ADMIT Obstetrics & Gynecology; ATTEND Obstetrics & Gynecology
DX: O46.93 Antepartum hemorrhage, unspecified, third trimester (principal); E03.9 Hypothyroidism, unspecified; O99.283 Endocrine, nutritional and metabolic diseases complicating pregnancy, third trimester; O99.613 Diseases of the digestive system complicating pregnancy, third trimester; K50.90 Crohn's disease, unspecified, without complications; O99.343 Other mental disorders complicating pregnancy, third trimester; F41.9 Anxiety disorder, unspecified; F32.9 Major depressive disorder, single episode, unspecified; O99.333 Smoking (tobacco) complicating pregnancy, third trimester; F17.210 Nicotine dependence, cigarettes, uncomplicated; Z3A.33 33 weeks gestation of pregnancy; Z79.899 Other long term (current) drug therapy; Z86.73 Personal history of transient ischemic attack (TIA), and cerebral infarction without residual deficits
CPT/HCPCS: 59025; 76815; 76817; 76819; 80307; 81001; 85025; 87086; 96372; 99285; G0378; G0481; J0702

== ENCOUNTER 2017-08-20 16:39 | Inpatient (IN) | payer OTHER ==
[~2017-08-20 16:39] MED LIST changes: -ALPR.5 PO; +APRI0.372 PO; -CHOL1TAB42 PO; +COLE625 PO; +CYAN100025 SL; +ENTO3CAP5 PO; +LACTATED RINGER'S 1000 ML INJ 1,000 ML IV SCH; -LEVO.15 PO; -OXYC1TAB36 PO; +PREN28TA2 PO; +SYNT300T PO; -VITA500T35 PO; -ZOFR4TAB3 SL; -ZOLO50TA PO; +[UNRECOGNIZED DRUG - CODE] PO
[2017-08-20 17:00] VITALS: RESP 20; TEMP 98.3
[2017-08-20] MEDS ORDERED: LACTATED RINGER'S 1000 ML INJ 500 ML IV ONE (17:02)
[2017-08-20] MEDS ORDERED: MORPHINE SULFATE 4 MG/ML INJ IV PUSH PRN (17:15)
[2017-08-20] MEDS ORDERED: ONDANSETRON HCL 4 MG/2 ML VIAL IV PUSH PRN (17:15)
[2017-08-20] MEDS ORDERED: CITRIC ACID-SODIUM CITRATE LIQ 30 ML UDC PO SCH (17:15)
[2017-08-20] MEDS ORDERED: SODIUM CHLORIDE 0.9% FLUSH 10 ML FLUSH IV FLUSH PRN (17:15)
--- NOTE | 2017-08-20 17:19 | HHI.HP ---
History & Physical H&P OB ED Note (Detail) Patient Name: Felicia Woo Unit Number: [id number] Date of : 1985 Patient Status: Discharged Inpatient (obs) Attending Doctor: Rober Martinez MD HPI HPI Chief Complaint decreased movement Date Seen: Aug 20, 2017 Time Seen: 1710 Travel History International Travel<30 Days: No Contact w/Intl Traveler<30Days: No Known Affected Area: No History of Present Illness HPI Pt is a 31y/o @ 35 wks. She has PNC with Dr. Martinez. She presents for evaluation decreased movement , noticed FM in the morning and then went to bed and slept on awakening felt no movement. She states that she No recent abdominal trauma. No known previa. . No LOF. ON NAYELI --no CM on US -- IUFD is c/b: -- extensive bowel history -- h/o CS x1 (arrest of dilation) -- hypothyroidism -- tobacco use Weeks Gestation: 33 Para: 1 : 3 History (Limited) History Past Medical History Narrative Medical Crohns Dz hypothyroidism bowel history anxiety/depression h/o TIA (medication side effect) Obstetric History Obstetric History CS x1 AB x1 Past Surgical History Narrative Surgical bowel surgeries thyroidectomy ankle unilateral salpingoopherectomy breast augmentation Family History Family History: Negative Social History Alcohol Use: No Tobacco Use: Yes (1-2 per day) Substance Abuse: No Allergies-Medications Allergies-Medications (Allergen,Severity, Reaction): Coded Allergies: codeine (Unverified Allergy, Mild, HIVES, 04/07/17) latex (Unverified Allergy, Mild, RASH, 04/07/17) levofloxacin (Unverified Adverse Reaction, Intermediate, HOURSE THROUT AND SOB, 04/07/17) Home Meds Active Scripts Oxycodone-Acetaminophen (Oxycodone-Acetaminophen) 10-325 mg Tab, 1 TAB PO Q4H Y for PAIN SCALE 6 TO 10, #30 TAB 0 Refills Prov:Ton Tsang MD 10/22/16 Ondansetron Odt (Zofran Odt) 4 Mg Tab, 4 MG SL Q8HR Y for Nausea/Vomiting, #30 TAB 0 Refills Prov:Richard Lee MD 09/14/16 Reported Medications Cyanocobalamin (Vitamin B12) 500 Mcg Tab, 3000 MCG PO DAILY, #1 BOTTLE 07/15/16 Cholecalciferol (Vitamin D-3) 2,000 Unit Tab, 11444 MG PO bi weekly 07/15/16 Levothyroxine (Synthroid) 150 Mcg Tab, 150 MCG PO DAILY for Thyroid, #30 TAB 0 Refills 07/15/16 Sertraline (Zoloft) 50 Mg Tab, 50 MG PO DAILY, #30 TAB 0 Refills 07/15/16 Pantoprazole (Protonix) 20 Mg Tab, 20 MG PO DAILY for Reflux, #30 TAB 0 Refills 07/15/16 Alprazolam (Xanax) 0.5 Mg Tab, 0.5 MG PO Q6H Y for ANXIETY, TAB 0 Refills 07/15/16 ROS Review of Systems Except as stated in HPI: all other systems reviewed are Neg Physical Exam Physical Exam Narrative General: well developed, well nourished, no acute distress HEENT: normocephalic atraumatic, extraocular movements intact, neck supple Abdomen: soft, gravid, nontender, nondistended, large vertical scar from bowel resection Extremities: full range of motion Skin: normal coloration, no rashes, no suspicious skin lesions noted Neurologic: cranial nerves 2-12 grossly intact, normal muscle tone, normal gait Psychiatric: normal mood and affect, appropriate FHTs absent US confirms IUFD [place]: irritable Cvx: cl/th/high, dark blood on glove Data Data Data Vital Signs Reviewed: Yes Orders Orders Vital Signs (Adult) .ON ADMISSION (08/11/17 05:34) ^ Labor Status (08/11/17 05:34) Urinalysis - C+S If Indicated (08/11/17 05:34) ^ Non Stress Test (08/11/17 05:34) MDM MDM Plan 31y/o @ 35 wks with IUFD had a hx of vaginal bleeding 1 wk ago , no known previa. Dispo: Discussed with Dr. Martinez and plans to see the patient and very likely perform a hysterotomy for uterine evacuation Diagnosis Diagnosis: Primary Impression: 3 5 weeks gestation of IUFD Additional Impressions: IUFD History of Hypothyroidism Anxiety and depression Alfonso Muñoz MD Aug 20, 2017 [id number] Toni Hamilton II, MD Aug 20, 2017 17:19
[2017-08-20] MEDS ORDERED: LORazepam 2 MG/ML VIAL IV PUSH ONE (18:00)
[2017-08-20] MEDS ORDERED: ACETAMINOPHEN 1000 MG/100 ML 100 ML IV ONE (18:02)
[2017-08-20] MEDS ORDERED: MORPHINE SULFATE PF 5 MG/10 ML VIAL ONE (18:02)
[2017-08-20] MEDS ORDERED: oxyCODONE/ACETAMINOPHEN 5 MG/325 MG TAB PO PRN (18:15)
[2017-08-20] MEDS ORDERED: OXYTOCIN 30 UNITS-500ML PREMIX 500 ML IV ONE (18:15)
[2017-08-20] MEDS ORDERED: OXYTOCIN 30 UNITS-500ML PREMIX 500 ML IV PRN (18:15)
[2017-08-20] MEDS ORDERED: MEASLES, MUMPS, RUBELLA VACCINE 0.5 ML VIAL SQ ONE (18:15)
[2017-08-20] MEDS ORDERED: ACETAMINOPHEN 1000 MG/100 ML VIAL IV SCH (18:15)
[2017-08-20] MEDS ORDERED: SIMETHICONE 80 MG CHEWABLE TAB PO PRN (18:15)
[2017-08-20] MEDS ORDERED: DOCUSATE SODIUM 50 MG/SENNA 8.6 MG TAB PO PRN (18:15)
[2017-08-20] MEDS ORDERED: ZOLPIDEM TARTRATE 5 MG TAB PO PRN (18:15)
[2017-08-20 18:38] LABS: BASOPHIL % 0.2 % (0.0-2.0); EOSINOPHIL % 0.1 % (0.0-4.0); HEMATOCRIT 39.6 % (35.0-46.0); HEMOGLOBIN 13.3 GM/DL (11.6-15.3); LYMPH % 20.3 % (9.0-44.0); MEAN CELL VOLUME 86.9 FL (80.0-100.0); MEAN CORPUSCULAR HEMOGLOBIN 29.2 PG (27.0-34.0); MEAN CORPUSCULAR HGB CONC 33.6 % (32.0-36.0); MEAN PLATELET VOLUME 7.9 FL (7.0-11.0); MONO % 6.4 % (0.0-8.0); MONOCYTE # 0.6 TH/MM3 (0-0.9); PLATELET COUNT 330 TH/MM3 (150-450); RED BLOOD COUNT 4.55 MIL/MM3 (4.00-5.30); RED CELL DISTRIBUTION WIDTH 13.3 % (11.6-17.2); WHITE BLOOD COUNT 9.7 TH/MM3 (4.0-11.0)
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
[2017-08-20 20:05] VITALS: BP 111/57; PULSE 85; RESP 18; O2SAT 100
[2017-08-20 20:20] VITALS: BP 128/80; PULSE 83; RESP 18; O2SAT 99
[2017-08-20 20:31] VITALS: BP 147/85; PULSE 78; RESP 18
[2017-08-20 20:47] VITALS: BP 147/93; PULSE 92; RESP 18
[2017-08-20] MEDS ORDERED: SODIUM CHLORIDE 0.9% FLUSH 10 ML FLUSH IV FLUSH SCH (21:00)
[2017-08-20 23:04] VITALS: BP 158/112; PULSE 96; RESP 19; TEMP 99.2; O2SAT 96
[2017-08-20] MEDS: oxyCODONE/ACETAMINOPHEN 5 MG/325 MG TAB PO PRN (23:15)
[2017-08-20] MEDS: ONDANSETRON HCL 4 MG/2 ML VIAL IVP PRN (23:15)
[2017-08-21] MEDS ORDERED: DIPHENOXYLATE/ATROPINE 2.5 MG/0.025 MG TAB PO PRN (00:45)
[2017-08-21] MEDS ORDERED: LOPERAMIDE HCL 2 MG CAP PO PRN (00:45)
[2017-08-21] MEDS: ALPRAZolam 0.25 MG TAB PO PRN ×4 (01:13→20:42)
[2017-08-21] MEDS ORDERED: diphenhydrAMINE HCL 50 MG CAP PO ONE (01:15)
[2017-08-21] MEDS ORDERED: diphenhydrAMINE HCL 50 MG CAP PO PRN (02:15)
[2017-08-21] MEDS ORDERED: COLESEVELAM HCL 625 MG TAB PO PRN (02:15)
[2017-08-21] MEDS: oxyCODONE/ACETAMINOPHEN 5 MG/325 MG TAB PO PRN ×4 (03:28→17:57)
[2017-08-21 04:00] VITALS: BP 102/64; PULSE 88; RESP 17; TEMP 97.1; O2SAT 93
--- NOTE | 2017-08-21 06:37 | MP ---
cc: CHANI BRICE ANDREW H. M.D. DATE OF SURGERY 08/20/2017. PREOPERATIVE DIAGNOSES 1. 35 weeks, demise. 2. Previous . 3. Status post right colon resection for Crohn disease. POSTOPERATIVE DIAGNOSES 1. 35 weeks, demise. 2. Previous . 3. Status post right colon resection for Crohn disease. PROCEDURE 1. Repeat low transverse section, Dr. Brice. 2. Lysis of adhesions, Dr. Tsang ANESTHESIA Spinal. SURGEON MD Ton Caro MD ESTIMATED BLOOD LOSS About 900 cc. FLUIDS 2.3 liters crystalloid. OBJECTIVE FINDINGS Following induction of adequate spinal anesthesia the patient was prepped and draped supine on the operating table in sterile fashion with the bladder being drained by Hyde catheterization. The abdomen was opened through a Pfannenstiel incision, excising her old Pfannenstiel scar in the process. The fascia was opened transversely, stripped from the muscles, the rectus muscle split in the midline and the peritoneum opened sharply without incident. The bladder flap was taken down sharply and retracted inferiorly with a Maynard blade. The lower uterine segment was incised transversely with a knife, extended with blunt dissection. The baby was delivered with fundal pressure with guidance. The membrane ruptured and revealed meconium-stained fluid, dark in color. The cord was clamped and cut and the baby passed to the nursing team, a stillborn female. Cord blood was collected. The placenta delivered intact and inspected. There was no obvious abnormalities except for meconium staining on side of the placenta. The uterine cavity was wiped clean with laps, exteriorized and closed in two layers of running suture, the first a running locking stitch of 0 Vicryl, the second a running imbricating stitch of 0 Vicryl. Right and posterior inspection revealed dense colon adhesions. Dr. Tsang was then consulted. He arrived and scrubbed in, took down the adhesions of the colon to the uterus. The right tube and ovary were absent from her previous bowel resection. Dr. Tsang inspected the remainder of the bowel which also was clear and then he scrubbed out. The bladder flap had been closed with 3-0 Vicryl. There was no bleeding. The peritoneum was closed with a running stitch of 2-0 Vicryl. The fascia was closed with running stitch of 0 Vicryl from each corner to the midline and tied, the subcu with a running 3-0 Vicryl and the skin closed with tory at patient request. Sterile bandage was applied. All counts were correct and the patient was awakened and taken to Recovery in good condition. MD ELIANA Vanegas/FLAVIA /7:43 PM /6:09 AM MTDJosie
[2017-08-21] MEDS: MULTIVIT/MIN/PREN/FOL AC/IRON PRENATAL TAB PO SCH (07:50)
[2017-08-21] MEDS: CHOLECALCIFEROL (VIT D3) 1000 UNIT TAB PO SCH (07:51)
[2017-08-21] MEDS: CYANOCOBALAMIN 1,000 MCG TAB PO SCH (07:52)
[2017-08-21] MEDS: PANTOPRAZOLE SOD 40 MG DELAYED RELEASE TAB PO SCH (07:52)
[2017-08-21] MEDS: ACETAMINOPHEN 1000 MG/100 ML VIAL IV SCH ×2 (07:53→17:58)
[2017-08-21 08:00] VITALS: BP 125/77; PULSE 108; RESP 18; TEMP 99; O2SAT 96
[2017-08-21 08:11] LABS: BASOPHIL % 0.1 % (0.0-2.0); HEMATOCRIT 30.3 % (35.0-46.0); HEMOGLOBIN 10.1 GM/DL (11.6-15.3); LYMPH % 14.5 % (9.0-44.0); LYMPHOCYTE # 1.5 TH/MM3 (1.0-4.8); MEAN CELL VOLUME 86.5 FL (80.0-100.0); MEAN CORPUSCULAR HEMOGLOBIN 28.9 PG (27.0-34.0); MEAN CORPUSCULAR HGB CONC 33.4 % (32.0-36.0); MEAN PLATELET VOLUME 7.7 FL (7.0-11.0); MONO % 6.7 % (0.0-8.0); MONOCYTE # 0.7 TH/MM3 (0-0.9); NEUT % 78.7 % (16.0-70.0); PLATELET COUNT 283 TH/MM3 (150-450); RED CELL DISTRIBUTION WIDTH 13.2 % (11.6-17.2); WHITE BLOOD COUNT 10.2 TH/MM3 (4.0-11.0)
[2017-08-21 08:38] LABS: BICARBONATE 25.4 MEQ/L (21.0-32.0); CALCIUM 8.3 MG/DL (8.5-10.1); CREATININE 0.61 MG/DL (0.50-1.00)
[2017-08-21] MEDS ORDERED: ENTOCORT 3 MG PO SCH (09:00)
[2017-08-21] MEDS ORDERED: COLESEVELAM HCL 625 MG TAB PO SCH (09:00)
[2017-08-21] MEDS ORDERED: APRISO PO SCH (09:00)
--- NOTE | 2017-08-21 09:55 | MR ---
cc: VANESSA MARTINEZ M.D. DATE: August 20, 2017 PREOPERATIVE DIAGNOSIS demise of 35-week , previous history of Crohn disease. PROCEDURE Lysis of adhesions, mobilization of sigmoid colon POSTOPERATIVE DIAGNOSIS Lysis of adhesions, mobilization of sigmoid colon SURGEON Dr. Martinez RECTIFIER OPERATOR: Dr. Rober Martinez PROCEDURE The patient was already on the operating table in the care of Dr. Rober Martinez for after a 35-week demise. The patient and has been under my care previously for Crohn disease and had several laparotomies. Dr. Martinez was concerned about adhesions to the uterus from the sigmoid colon prior to closing the abdomen. Operative field was already established and the uterus was closed after the fetus had been removed. There were adhesions to a very redundant sigmoid loop. Stuck to the right side of the uterus site of the previous tube. These adhesions were sharply taken down ligating the remnant of the right tube at the junction with the uterus with Vicryl ligature. Several bleeding spots were oversewn by Dr. Martinez with chromic catgut. After mobilization the sigmoid colon appeared to be fairly normal did have a. He did have a fair amount of stool within the lumen. The serosal area around the site of excision was oversewn with several interrupted 3-0 Vicryl sutures. The remainder of the small bowel appeared normal. The fluid and blood were suctioned out of the cul-de-sac. Please refer to Dr. Martinez's dictation for the remainder of the procedure and closure of the abdomen. MD SKYLER Puente/rachana /9:09 AM /9:18 AM
[2017-08-21] MEDS: KETOROLAC TROMETHAMINE 30 MG/ML (IVP) VIAL IV PUSH PRN ×2 (11:16→20:41)
[2017-08-21 16:00] VITALS: BP 137/81; PULSE 123; RESP 20; TEMP 97.6; O2SAT 100
[2017-08-21] MEDS ORDERED: LEVOTHYROXINE SODIUM 150 MCG TAB PO SCH ×2 (16:00→21:00)
--- NOTE | 2017-08-21 16:49 | HHI.PR ---
Subjective Remarks C/R Surg POD #1 afebrile,VSS brinda PO +flatus Objective - Vital Signs Date Time Temp Pulse Resp B/P (MAP) Pulse Ox O2 Delivery O2 Flow Rate FiO2 08/21/17 08:00 99.0 108 18 125/77 (93) 96 Result Diagram: 08/21/17 0700 08/21/17 0700 Objective Remarks PE alert Abd - soft, wound draining slightly, clean A/P Assessment and Plan Imp: stable post-op OOB lax prn dc prn rto prn Crohn's ds Ton Tsang MD Aug 21, 2017 16:49
--- NOTE | 2017-08-21 17:14 | HHI.OB ---
Subjective Post Operative Day: 1 Remarks pain controlled, mod lochia, brinda po, +void/flatus, denies n/v. having a hard time with home. baby laying in bed with pt. Objective Vitals/I&O Vital Signs Date Time Temp Pulse Resp B/P (MAP) Pulse Ox O2 Delivery O2 Flow Rate FiO2 08/21/17 08:00 99.0 108 18 125/77 (93) 96 08/21/17 04:00 97.1 88 17 102/64 (77) 93 08/21/17 01:43 18 08/21/17 00:15 18 08/20/17 23:04 99.2 96 19 158/112 (127) 96 08/20/17 20:47 92 18 147/93 (111) 08/20/17 20:31 78 18 147/85 (105) 08/20/17 20:20 99 08/20/17 20:20 83 18 128/80 (96) 08/20/17 20:05 100 08/20/17 20:05 85 18 111/57 (75) Intake & Output 08/21/17 08/21/17 07:00 19:00 Intake Total 240 ml 100 ml Output Total 150 ml Balance 90 ml 100 ml Intake Oral 240 ml IV Total 100 ml Output Urine Total 150 ml # Sanitary Pads 1 Pads Result Diagram: 08/21/17 0700 08/21/17 0700 Objective Remarks GENERAL: Well-nourished, well-developed patient. CARDIOVASCULAR: Regular rate and rhythm without murmurs, gallops, or rubs. RESPIRATORY: Breath sounds equal bilaterally. No accessory muscle use. ABDOMEN/GI: Abdomen soft, non-tender, bowel sounds present. Incision: Clean, dry and intact. small amount of drainage from left side of incision. staple intact Fundus: Firm, non-tender at umbilicus. GENITOURINARY: Light to moderate bleeding. EXTREMITIES: No cyanosis or edema, non-tender, without signs of DVT. Medications and IVs Current Medications Medications (Trade) Dose Ordered Sig/Irving Route Start Time Stop Time Status Last Admin Oxytocin 500 ml @ 100 mls/hr UNSCH X1 PRN IV 08/20/17 18:15 08/21/17 18:14 (Mylicon Chew) 80 mg QID PRN PO 08/20/17 18:15 (Percocet 5-325 Mg) 1 tab Q4H PRN PO 08/20/17 18:15 (Percocet 5-325 Mg) 2 tab Q4H PRN PO 08/20/17 18:15 08/21/17 13:15 (Dot-Colace) 2 tab Q12H PRN PO 08/20/17 18:15 (Ambien) 5 mg HS PRN PO 08/20/17 18:15 (Boostrix Inj) 0.5 ml ONCE ONCE IM 08/22/17 09:00 08/22/17 09:01 (Zofran Inj) 4 mg Q6H PRN IVP 08/20/17 18:15 08/20/17 23:15 (Toradol Inj) 30 mg Q6H PRN IV PUSH 08/20/17 18:15 08/24/17 18:00 08/21/17 11:16 (Xanax) 0.25 mg Q6H PRN PO 08/21/17 00:45 08/21/17 13:15 (Vitamin D3) 2,000 units DAILY PO 08/21/17 09:00 08/21/17 07:51 (Protonix) 40 mg DAILY PO 08/21/17 09:00 08/21/17 07:52 (Stuartnatal Plus 3 ) 1 tab DAILY PO 08/21/17 09:00 08/21/17 07:50 (Lomotil Tab) 2 tab Q6H PRN PO 08/21/17 00:45 (Imodium) 4 mg Q6H PRN PO 08/21/17 00:45 (Vitamin B12) 1,500 mcg DAILY PO 08/21/17 09:00 08/21/17 07:52 Patient Own Medication PT OWN MED:APRISO Extended-rele... DAILY PO 08/21/17 09:00 Future Hold Patient Own Medication PT OWN MED: Entocort EC (budesonide)... DAILY PO 08/21/17 09:00 Future Hold (Synthroid) 300 mcg DAILY@1600 PO 08/21/17 16:00 08/21/17 16:03 (Welchol) 625 mg Q8H PRN PO 08/21/17 02:15 (Benadryl) 50 mg Q4H PRN PO 12/29/17 02:15 (Ofirmev 1000 Mg/ 100 ml Inj) 1,000 mg Q8H IV 08/21/17 09:00 08/21/17 17:01 08/21/17 07:53 Assessment/Plan Problem List: (1) delivery, delivered, current hospitalization ICD Codes: O82 - Encounter for delivery without indication Plan: pressure dressing placed over incision consult case management Roc Hawkins MD Aug 21, 2017 17:14
[2017-08-21] MEDS: ONDANSETRON HCL 4 MG/2 ML VIAL IVP PRN (17:58)
[2017-08-21 20:00] VITALS: BP 103/66; PULSE 94; RESP 20; TEMP 97.5; O2SAT 95
[2017-08-22] VITALS: BP 106/71; PULSE 74; RESP 20; TEMP 96.6; O2SAT 97
[2017-08-22] MEDS: ALPRAZolam 0.25 MG TAB PO PRN (03:13)
[2017-08-22] MEDS: oxyCODONE/ACETAMINOPHEN 5 MG/325 MG TAB PO PRN ×2 (03:13→07:57)
[2017-08-22 04:00] VITALS: BP 110/68; PULSE 76; RESP 20; TEMP 97.5; O2SAT 95
[2017-08-22] MEDS: CHOLECALCIFEROL (VIT D3) 1000 UNIT TAB PO SCH (07:57)
[2017-08-22] MEDS: CYANOCOBALAMIN 1,000 MCG TAB PO SCH (07:57)
[2017-08-22] MEDS: MULTIVIT/MIN/PREN/FOL AC/IRON PRENATAL TAB PO SCH (07:57)
[2017-08-22] MEDS: PANTOPRAZOLE SOD 40 MG DELAYED RELEASE TAB PO SCH (07:58)
[2017-08-22 08:00] VITALS: BP 110/74; PULSE 83; RESP 17; TEMP 98.3; O2SAT 98
[2017-08-22 09:00] VITALS: RESP 17
[2017-08-22] MEDS ORDERED: DIPHTH/TETANUS/ACEL PERTUSSIS (BOOSTER) 0.5 ML VIAL/PFS IM ONE (09:00)
--- NOTE | 2017-08-22 09:48 | HHI.OB ---
Subjective Post Day: 2 Remarks healing as expected, doing well, voiding and no BM yet. Pt ready for DC home Objective Vitals/I&O Vital Signs Date Time Temp Pulse Resp B/P (MAP) Pulse Ox O2 Delivery O2 Flow Rate FiO2 08/22/17 09:00 17 08/22/17 08:00 98.3 83 17 110/74 (86) 98 08/22/17 04:00 97.5 76 20 110/68 (82) 95 08/22/17 03:18 18 08/22/17 00:00 96.6 74 20 106/71 (83) 97 08/21/17 20:00 97.5 94 20 103/66 (78) 95 08/21/17 16:00 97.6 123 20 137/81 (99) 100 Intake & Output 08/22/17 08/22/17 07:00 19:00 Output Total 600 ml Balance -600 ml Output Urine Total 600 ml # Sanitary Pads 1 Pads Objective Remarks GENERAL: Well-nourished, well-developed patient. ABDOMEN/GI: Abdomen soft, non-tender. Fundus: Firm, non-tender at umbilicus.incision with bandage GENITOURINARY: Light to moderate bleeding. EXTREMITIES: No cyanosis or edema, non-tender, without signs of DVT. Medications and IVs Current Medications Medications (Trade) Dose Ordered Sig/Irving Route Start Time Stop Time Status Last Admin (Mylicon Chew) 80 mg QID PRN PO 08/20/17 18:15 (Percocet 5-325 Mg) 1 tab Q4H PRN PO 08/20/17 18:15 (Percocet 5-325 Mg) 2 tab Q4H PRN PO 08/20/17 18:15 08/22/17 07:57 (Dot-Colace) 2 tab Q12H PRN PO 08/20/17 18:15 (Ambien) 5 mg HS PRN PO 08/20/17 18:15 (Zofran Inj) 4 mg Q6H PRN IVP 08/20/17 18:15 08/21/17 17:58 (Toradol Inj) 30 mg Q6H PRN IV PUSH 08/20/17 18:15 08/24/17 18:00 08/21/17 20:41 (Xanax) 0.25 mg Q6H PRN PO 08/21/17 00:45 08/22/17 03:13 (Vitamin D3) 2,000 units DAILY PO 08/21/17 09:00 08/22/17 07:57 (Protonix) 40 mg DAILY PO 08/21/17 09:00 08/22/17 07:58 (Stuartnatal Plus 3 ) 1 tab DAILY PO 08/21/17 09:00 08/22/17 07:57 (Lomotil Tab) 2 tab Q6H PRN PO 08/21/17 00:45 (Imodium) 4 mg Q6H PRN PO 08/21/17 00:45 (Vitamin B12) 1,500 mcg DAILY PO 08/21/17 09:00 08/22/17 07:57 Patient Own Medication PT OWN MED:APRISO Extended-rele... DAILY PO 08/21/17 09:00 Future Hold Patient Own Medication PT OWN MED: Entocort EC (budesonide)... DAILY PO 08/21/17 09:00 Future Hold (Synthroid) 300 mcg DAILY@1600 PO 08/21/17 16:00 08/21/17 16:03 (Welchol) 625 mg Q8H PRN PO 08/21/17 02:15 (Benadryl) 50 mg Q4H PRN PO 08/21/17 02:15 08/21/17 17:57 Assessment/Plan Problem List: (1) delivery, delivered, current hospitalization ICD Codes: O82 - Encounter for delivery without indication Plan: pressure dressing placed over incision consult case management Discharge Planning DC home pt requesting percocet and Xanax Rober Abernathy MD Aug 22, 2017 09:48
--- NOTE | 2017-08-22 09:49 | HHI.DCPOC ---
Discharge Care Plan Diagnosis: (1) delivery, delivered, current hospitalization (2) demise > 22 weeks, delivered, current hospitalization Report Symptoms to Your Doctor -Temperature above 100.5 degrees -Redness, of incision or excessive or foul smelling drainage -Unusual pain or calf pain -Increased vaginal bleeding -Painful or difficulty urinating -Feelings of extreme sadness or anxiety after 2 weeks Goals to Promote Your Health * To prevent worsening of your condition and complications * To maintain your health at the optimal level Directions to Meet Your Goals Take your medications as prescribed Follow your dietary instruction Follow activity as directed Ensure plenty of rest for recovery Drink fluids for hydration Keep your appointments as scheduled Take your immunizations and boosters as scheduled If your symptoms worsen call your PCP, if no PCP go to Urgent Care Center or Emergency Room Smoking is Dangerous to Your Health. Avoid second hand smoke Call the 24-hour crisis hotline for domestic abuse at Rober Abernathy MD Aug 22, 2017 09:49
[2017-08-22] MEDS ORDERED: OXYC1TAB63 PO (09:51)
[2017-08-22] MEDS ORDERED: ALPR.5 PO (09:51)
--- NOTE | 2017-08-22 09:54 | HHI.DS ---
Admission Date Aug 20, 2017 at 17:10 Discharge Date: Aug 22, 2017 Admitting Diagnosis Diagnosis: (1) delivery, delivered, current hospitalization ICD Codes: O82 - Encounter for delivery without indication (2) demise > 22 weeks, delivered, current hospitalization Diagnosis: Principal ICD Codes: O36.4XX0 - Maternal care for intrauterine , not applicable or unspecified : Repeat Brief History 31 yo followed by Michelle who came to hospital with 35 week demise went through repeat CS Hospital Course doing well ppd #2 wants to go home Pt Condition on Discharge: Good Discharge Disposition: Discharge Home Discharge Instructions Diet Instructions: As Tolerated, No Restrictions Activities You Can Perform: Regular-No Restrictions, Pelvic Rest Activities to Avoid: Driving for 24 hrs Follow up Referrals: [facility] - 1 Week @ [facility] with Rober [facility] MD New Medications: Alprazolam (Xanax) 0.5 Mg Tab 0.5 MG PO Q6H PRN for ANXIETY, #30 TAB 0 Refills Oxycodone HCl/Acetaminophen (Oxycodone-Acetaminophen 5-325) 5 Mg-325 Mg Tablet 1 TAB PO Q4H PRN for PAIN SCALE 1 TO 4, #30 TAB Continued Medications: Budesonide DR (Entocort EC) 3 Mg Capdr 9 MG PO DAILY, #90 CAP 0 Refills Cholecalciferol (Vitamin D3) (D3-2000) 2,000 Unit Capsule Unknown Dose PO DAILY Colesevelam (Welchol) 625 Mg Tab Unknown Dose PO Q8HR PRN for DIARRHEA, #180 TAB 0 Refills Cyanocobalamin (B-12) 1,000 Mcg Subl 1500 MCG SL DAILY for Nutritional Supplement, TAB.SL 0 Refills Levothyroxine (Synthroid) 300 Mcg Tab 300 MCG PO DAILY for Thyroid, #30 TAB 0 Refills Mesalamine ER 24 HR (Apriso) 0.375 Gm Caper 1.5 GM PO DAILY for Ulcerative colitis, CAP 0 Refills Pantoprazole (Protonix) 20 Mg Tab 40 MG PO DAILY for Reflux, #30 TAB 0 Refills Pnv No.95/Ferrous Fum/Folic AC ( Tablet) 28 Mg Iron-800 Mcg Tablet 1 TAB PO DAILY for Nutritional Supplement Rober Abernathy MD Aug 22, 2017 09:54
== END 2017-08-22 10:30 | disposition home or self-care (01) | DRG 765 ==
LOC: HOBED 16:39 → H2EB 17:10 → N07B 22:43
PROVIDERS: ADMIT Obstetrics & Gynecology; ATTEND Obstetrics & Gynecology
PROC: 10D00Z1 Extraction of Products of Conception, Low, Open Approach (ICD-10-PCS; principal; 2017-08-20)
PROC: 0UN90ZZ Release Uterus, Open Approach (ICD-10-PCS; 2017-08-20)
DX: O36.4XX0 Maternal care for intrauterine death, not applicable or unspecified (principal); K50.90 Crohn's disease, unspecified, without complications; Z37.1 Single stillbirth; O99.344 Other mental disorders complicating childbirth; Z3A.35 35 weeks gestation of pregnancy; O99.284 Endocrine, nutritional and metabolic diseases complicating childbirth; O99.62 Diseases of the digestive system complicating childbirth; O34.211 Maternal care for low transverse scar from previous cesarean delivery; E89.0 Postprocedural hypothyroidism; N73.6 Female pelvic peritoneal adhesions (postinfective); O77.0 Labor and delivery complicated by meconium in amniotic fluid; F32.9 Major depressive disorder, single episode, unspecified; F41.9 Anxiety disorder, unspecified; Z86.73 Personal history of transient ischemic attack (TIA), and cerebral infarction without residual deficits; Z88.5 Allergy status to narcotic agent; Z88.1 Allergy status to other antibiotic agents; Z91.040 Latex allergy status
CPT/HCPCS: 80048; 80307; 83030; 85025; 86850; 86900; 86901; 88307; J0131; J0690; J1885; J2060; J2274; J2405; J2590; Q0163

== ENCOUNTER 2017-11-08 17:25 | Inpatient (IN) | payer OTHER ==
[~2017-11-08] VITALS: Ht 170.2 cm; Wt 60.7 kg
[~2017-11-08 17:25] MED LIST changes: +ALPR.5 PO; -LACTATED RINGER'S 1000 ML INJ 1,000 ML IV SCH; +OXYC1TAB63 PO
[2017-11-08 17:39] VITALS: BP 123/90; PULSE 119; RESP 18; TEMP 102.1; O2SAT 99
[2017-11-08] MEDS ORDERED: SODIUM CHLOR 0.9% 1000 ML INJ 800 ML IV ONE (17:58)
[2017-11-08] MEDS ORDERED: SODIUM CHLOR 0.9% 1000 ML INJ 1,000 ML IV ONE (17:58)
[2017-11-08] MEDS ORDERED: ACETAMINOPHEN 325 MG TAB PO ONE (18:00)
[2017-11-08] MEDS ORDERED: IMUR50TA5 PO (18:04)
[2017-11-08] MEDS ORDERED: LEVO.15 PO (18:04)
--- NOTE | 2017-11-08 18:05 | PD ---
HPI Chief Complaint: Medical Clearance Time Seen by Provider: 17:48 Travel History International Travel<30 days: No Contact w/Intl Traveler<30days: No Traveled to known affect area: No History of Present Illness HPI 32-year-old female with history of Crohn's disease who has been on imuron for 4 weeks, presents emergency department for evaluation of a fever 7 days. She denies any abdominal pain. She has no diarrhea. No hematochezia. She has no urinary symptoms. She has had no cough or chest congestion. Patient has become concerned because the fever persists without any other symptoms so she came to the emergency department for evaluation.. Patient is followed by [facility]. 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 CVA 2015) Diabetes: No Diminished Hearing: No Endocrine: Yes Gastrointestinal Disorders: Yes (CROHNS) GERD: No Genitourinary: No Hepatitis: No Hiatal Hernia: Yes Immune Disorder: Yes Implanted Vascular Access Dvce: Yes Kidney Stones: Yes Musculoskeletal: No Neurologic: No Psychiatric: Yes Reproductive: No Respiratory: No Immunizations Current: Yes Migraines: No Radiation Therapy: No Renal Failure: No Seizures: No Sleep Apnea: No Thyroid Disease: Yes (THYROIDECTOMY) Ulcer: Yes (peptic ulcer disease) ?: Not : 1 Para: 1 Miscarriage: 0 : 0 Past Surgical History Abdominal Surgery: Yes (colostomy, illostomy) AICD: No Body Medical Devices: BREAST IMPLANTS, PLATES AND SCREWS IN R ANKLE Cardiac Surgery: No Section: Yes Ear Surgery: No Endocrine Surgery: Yes (thyroidectomy) Eye Surgery: No Joint Replacement: No Oral Surgery: No Pacemaker: No Thoracic Surgery: No Other Surgery: Yes Social History Alcohol Use: No Tobacco Use: Yes (1-2 per day) Substance Use: No Allergies-Medications (Allergen,Severity, Reaction): Coded Allergies: codeine (Unverified Allergy, Severe, HIVES AND SHORTNESS OF BREATH, ) latex (Unverified Allergy, Severe, RASH AND SWELLING, 11/08/17) levofloxacin (Unverified Adverse Reaction, Severe, HOURSE THROAT AND SOB, 11/08/17) Reported Meds & Prescriptions Reported Meds & Active Scripts Active Xanax (Alprazolam) 0.5 Mg Tab 0.5 Mg PO Q6H PRN Reported Imuran (Azathioprine) 50 Mg Tab 50 Mg PO DAILY Hazardous agent: use appropriate precautions for handling and disposal. Synthroid (Levothyroxine Sodium) 150 Mcg Tab 150 Mcg PO DAILY B-12 (Cyanocobalamin) 1,000 Mcg Subl 1,500 Mcg SL DAILY Welchol (Colesevelam HCl) 625 Mg Tab Unknown Dose PO Q8HR PRN D3-2000 (Cholecalciferol (Vitamin D3)) 2,000 Unit Capsule Unknown Dose PO DAILY Protonix (Pantoprazole Sodium) 20 Mg Tab 40 Mg PO DAILY Review of Systems Except as stated in HPI: all other systems reviewed are Neg Physical Exam Narrative GENERAL: Well-nourished female patient, in no acute distress. SKIN: Focused skin assessment warm/dry. HEAD: Atraumatic. Normocephalic. EYES: Pupils equal and round. No scleral icterus. No injection or drainage. ENT: No nasal bleeding or discharge. Mucous membranes pink and moist. NECK: Trachea midline. No JVD. CARDIOVASCULAR: Tachycardic rate and rhythm. RESPIRATORY: No accessory muscle use. Clear to auscultation. Breath sounds equal bilaterally. GASTROINTESTINAL: Abdomen soft, non-tender, nondistended. Hepatic and splenic margins not palpable. MUSCULOSKELETAL: No obvious deformities. No clubbing. No cyanosis. No edema. NEUROLOGICAL: Awake and alert. No obvious cranial nerve deficits. Motor grossly within normal limits. Normal speech. PSYCHIATRIC: Appropriate mood and affect; insight and judgment normal. Data Data Last Documented VS Vital Signs Date Time Temp Pulse Resp B/P (MAP) Pulse Ox O2 Delivery O2 Flow Rate FiO2 11/08/17 21:24 99.1 87 20 111/66 (81) 96 Room Air Orders Orders Sepsis Workup Initiated (11/08/17 ) Complete Blood Count With Diff (11/08/17 17:58) Comprehensive Metabolic Panel (11/08/17 17:58) Prothrombin Time / Inr (Pt) (11/08/17 17:58) Act Partial Throm Time (Ptt) (11/08/17 17:58) Lactic Acid Sepsis Protocol (11/08/17 17:58) Urinalysis - C+S If Indicated (11/08/17 17:58) Blood Culture (11/08/17 17:58) Chest, Single Ap (11/08/17 17:58) Blood Glucose (11/08/17 17:58) Ecg Monitoring (11/08/17 17:58) Iv Access Insert/Monitor (11/08/17 17:58) Oximetry (11/08/17 17:58) Oxygen Administration (11/08/17 17:58) Acetaminophen (Tylenol) (11/08/17 18:00) Sodium Chlor 0.9% 1000 Ml Inj (Ns 1000 M (11/08/17 17:58) Sodium Chlor 0.9% 1000 Ml Inj (Ns 1000 M (11/08/17 17:58) Influenzae A/B Antigen (11/08/17 17:58) Urine Culture (11/08/17 18:54) C-Reactive Protein (Crp) (11/08/17 19:37) Admit Order (Ed Use Only) (11/08/17 21:42) Place In Observation (11/08/17 ) Code Status (11/08/17 21:35) Vital Signs (Adult) Q4H (11/08/17 21:35) Activity Oob With Assistance (11/08/17 21:35) Diet Regular Basic (11/09/17 Breakfast) Sodium Chloride 0.9% Flush (Ns Flush) (11/08/17 21:45) Sodium Chloride 0.9% Flush (Ns Flush) (11/09/17 09:00) Acetaminophen (Tylenol) (11/08/17 21:45) Ondansetron Inj (Zofran Inj) (11/08/17 21:45) Temazepam (Restoril) (11/08/17 21:45) Comprehensive Metabolic Panel (11/09/17 06:00) Complete Blood Count With Diff (11/09/17 06:00) Electrocardiogram (11/08/17 21:35) Scd Bilateral/Knee High MAE.BID (11/08/17 21:35) Naloxone Inj (Narcan Inj) (11/08/17 21:45) Alprazolam (Xanax) (11/08/17 22:00) Levothyroxine (Synthroid) (11/09/17 06:00) Pantoprazole (Protonix) (11/09/17 09:00) Magnesium Hydroxide Liq (Milk Of Magnesi (11/09/17 09:00) Labs Laboratory Tests Test 11/08/17 18:20 11/08/17 18:54 White Blood Count 4.6 TH/MM3 Red Blood Count 4.12 MIL/MM3 Hemoglobin 10.5 GM/DL Hematocrit 31.8 % Mean Corpuscular Volume 77.2 FL Mean Corpuscular Hemoglobin 25.6 PG Mean Corpuscular Hemoglobin Concent 33.1 % Red Cell Distribution Width 16.4 % Platelet Count 211 TH/MM3 Mean Platelet Volume 8.0 FL Neutrophils (%) (Auto) 52.1 % Lymphocytes (%) (Auto) 38.9 % Monocytes (%) (Auto) 7.9 % Eosinophils (%) (Auto) 0.5 % Basophils (%) (Auto) 0.6 % Neutrophils # (Auto) 2.4 TH/MM3 Lymphocytes # (Auto) 1.8 TH/MM3 Monocytes # (Auto) 0.4 TH/MM3 Eosinophils # (Auto) 0.0 TH/MM3 Basophils # (Auto) 0.0 TH/MM3 CBC Comment AUTO DIFF Differential Total Cells Counted 100 Neutrophils % (Manual) 54 % Band Neutrophils % 5 % Lymphocytes % 37 % Monocytes % 3 % Basophils % 1 % Neutrophils # (Manual) 2.7 TH/MM3 Differential Comment FINAL DIFF MANUAL Platelet Estimate NORMAL Platelet Morphology Comment NORMAL Red Cell Morphology Comment NORMAL Prothrombin Time 11.9 SEC Prothromb Time International Ratio 1.2 RATIO Activated Partial Thromboplast Time 31.5 SEC Blood Urea Nitrogen 15 MG/DL Creatinine 1.08 MG/DL Random Glucose 85 MG/DL Total Protein 6.4 GM/DL Albumin 2.6 GM/DL Calcium Level 8.0 MG/DL Alkaline Phosphatase 777 U/L Aspartate Amino Transf (AST/SGOT) 90 U/L Alanine Aminotransferase (ALT/SGPT) 61 U/L Total Bilirubin 0.3 MG/DL Sodium Level 137 MEQ/L Potassium Level 3.3 MEQ/L Chloride Level 105 MEQ/L Carbon Dioxide Level 21.4 MEQ/L Anion Gap 9 MEQ/L Estimat Glomerular Filtration Rate 59 ML/MIN Lactic Acid Level 1.3 mmol/L C-Reactive Protein 4.82 MG/DL Urine Color YELLOW Urine Turbidity HAZY Urine pH 6.0 Urine Specific Bruno 1.026 Urine Protein 30 mg/dL Urine Glucose (UA) NEG mg/dL Urine Ketones NEG mg/dL Urine Occult Blood NEG Urine Nitrite NEG Urine Bilirubin NEG Urine Urobilinogen LESS THAN 2.0 MG/DL Urine Leukocyte Esterase TRACE Urine WBC 5 /hpf Urine Squamous Epithelial Cells 6 /hpf Urine Bacteria RARE /hpf Urine Mucus FEW /lpf Microscopic Urinalysis Comment CATH-CULTURE IND MDM Medical Decision Making Medical Screen Exam Complete: Yes Emergency Medical Condition: Yes Medical Record Reviewed: Yes Differential Diagnosis Influenza versus exacerbation of Crohn's versus sepsis versus pneumonia versus UTI Narrative Course 32-year-old female presents emergency department for evaluation of fever 7 days. Patient is on Imuran for her Crohn's disease. She has been for 4 weeks now. Patient has no other symptoms to explain the fever. Sepsis workup was initiated. Laboratory Tests Test 11/08/17 18:20 11/08/17 18:54 White Blood Count 4.6 TH/MM3 Red Blood Count 4.12 MIL/MM3 Hemoglobin 10.5 GM/DL Hematocrit 31.8 % Mean Corpuscular Volume 77.2 FL Mean Corpuscular Hemoglobin 25.6 PG Mean Corpuscular Hemoglobin Concent 33.1 % Red Cell Distribution Width 16.4 % Platelet Count 211 TH/MM3 Mean Platelet Volume 8.0 FL Neutrophils (%) (Auto) 52.1 % Lymphocytes (%) (Auto) 38.9 % Monocytes (%) (Auto) 7.9 % Eosinophils (%) (Auto) 0.5 % Basophils (%) (Auto) 0.6 % Neutrophils # (Auto) 2.4 TH/MM3 Lymphocytes # (Auto) 1.8 TH/MM3 Monocytes # (Auto) 0.4 TH/MM3 Eosinophils # (Auto) 0.0 TH/MM3 Basophils # (Auto) 0.0 TH/MM3 CBC Comment AUTO DIFF Differential Total Cells Counted 100 Neutrophils % (Manual) 54 % Band Neutrophils % 5 % Lymphocytes % 37 % Monocytes % 3 % Basophils % 1 % Neutrophils # (Manual) 2.7 TH/MM3 Differential Comment FINAL DIFF MANUAL Platelet Estimate NORMAL Platelet Morphology Comment NORMAL Red Cell Morphology Comment NORMAL Prothrombin Time 11.9 SEC Prothromb Time International Ratio 1.2 RATIO Activated Partial Thromboplast Time 31.5 SEC Blood Urea Nitrogen 15 MG/DL Creatinine 1.08 MG/DL Random Glucose 85 MG/DL Total Protein 6.4 GM/DL Albumin 2.6 GM/DL Calcium Level 8.0 MG/DL Alkaline Phosphatase 777 U/L Aspartate Amino Transf (AST/SGOT) 90 U/L Alanine Aminotransferase (ALT/SGPT) 61 U/L Total Bilirubin 0.3 MG/DL Sodium Level 137 MEQ/L Potassium Level 3.3 MEQ/L Chloride Level 105 MEQ/L Carbon Dioxide Level 21.4 MEQ/L Anion Gap 9 MEQ/L Estimat Glomerular Filtration Rate 59 ML/MIN Lactic Acid Level 1.3 mmol/L C-Reactive Protein 4.82 MG/DL Urine Color YELLOW Urine Turbidity HAZY Urine pH 6.0 Urine Specific Bruno 1.026 Urine Protein 30 mg/dL Urine Glucose (UA) NEG mg/dL Urine Ketones NEG mg/dL Urine Occult Blood NEG Urine Nitrite NEG Urine Bilirubin NEG Urine Urobilinogen LESS THAN 2.0 MG/DL Urine Leukocyte Esterase TRACE Urine WBC 5 /hpf Urine Squamous Epithelial Cells 6 /hpf Urine Bacteria RARE /hpf Urine Mucus FEW /lpf Microscopic Urinalysis Comment CATH-CULTURE IND I have discussed the patient with my attending physician. Patient will be admitted observation for fever of unknown origin. I discussed the patient with Dr. Fitzpatrick. He accepts the patient for admission. Diagnosis Primary Impression: Fever of unknown origin Additional Impression: Crohns disease Qualified Codes: K50.919 - Crohn's disease, unspecified, with unspecified complications Admitting Information Admitting Physician Requests: Observation Condition: Stable MosesKecia sunshine BLESSING Nov 08, 2017 18:05
[2017-11-08 18:09] VITALS: O2SAT 97
--- NOTE | 2017-11-08 18:46 | RADRPT ---
EXAM DATE/TIME: 11/08/2017 18:25 [facility] COMPARISON: ABDOMEN KUB ONLY, October 20, 2016, 5:07. INDICATIONS : Fever from unknown source on a patient with Crohn's disease. MEDICAL HISTORY : Crohn's disease. SURGICAL HISTORY : Colon resection. ENCOUNTER: Initial ACUITY: 1 day PAIN SCORE: 0/10 LOCATION: Bilateral chest FINDINGS: A single view of the chest demonstrates the lungs to be symmetrically aerated without evidence of mas s, infiltrate or effusion. The cardiomediastinal contours are unremarkable. Osseous structures are intact. CONCLUSION: 1. No acute cardiopulmonary findings. Jerad Jerez MD on November 08, 2017 at 18:44 Board Certified Radiologist. This report was verified electronically.
[2017-11-08 18:49] LABS: AUTOMATED NEUTROPHIL # 2.4 TH/MM3 (1.8-7.7); BASOPHIL % 0.6 % (0.0-2.0); EOSINOPHIL % 0.5 % (0.0-4.0); HEMATOCRIT 31.8 % (35.0-46.0); HEMOGLOBIN 10.5 GM/DL (11.6-15.3); LYMPH % 38.9 % (9.0-44.0); LYMPHOCYTE # 1.8 TH/MM3 (1.0-4.8); MEAN CELL VOLUME 77.2 FL (80.0-100.0); MEAN CORPUSCULAR HEMOGLOBIN 25.6 PG (27.0-34.0); MEAN CORPUSCULAR HGB CONC 33.1 % (32.0-36.0); MONO % 7.9 % (0.0-8.0); MONOCYTE # 0.4 TH/MM3 (0-0.9); NEUT % 52.1 % (16.0-70.0); PLATELET COUNT 211 TH/MM3 (150-450); RED BLOOD COUNT 4.12 MIL/MM3 (4.00-5.30); RED CELL DISTRIBUTION WIDTH 16.4 % (11.6-17.2); WHITE BLOOD COUNT 4.6 TH/MM3 (4.0-11.0)
[2017-11-08 18:58] LABS: ALBUMIN 2.6 GM/DL (3.4-5.0); AST (GOT) 90 U/L (15-37); BICARBONATE 21.4 MEQ/L (21.0-32.0); BLOOD UREA NITROGEN 15 MG/DL (7-18); CREATININE 1.08 MG/DL (0.50-1.00); GLOMERULAR FILTRATION RATE 59 ML/MIN (>89); GLUCOSE,RANDOM 85 MG/DL (74-106)
[2017-11-08 18:59] LABS: ALT (GPT) 61 U/L (10-53)
[2017-11-08 19:02] LABS: INTERNATIONAL NORMALIZED RATIO 1.2 RATIO; PROTHROMBIN TIME - PATIENT 11.9 SEC (9.8-11.6)
[2017-11-08 19:23] LABS: BANDS 5 % (0-6); BASOPHILS 1 % (0-2); LYMPHOCYTES 37 % (9-44); MONOCYTES 3 % (0-8); NEUTROPHIL # MANUAL DIFF 2.7 TH/MM3 (1.8-7.7); POLYS (SEG NEUTROPHILS) 54 % (16-70)
[2017-11-08 19:32] LABS: CHLORIDE 105 MEQ/L (98-107); SODIUM (NA) 137 MEQ/L (136-145)
[2017-11-08 19:35] LABS: BACTERIA, URINE RARE /hpf; BILIRUBIN, URINE NEG (NEG); BLOOD, URINE NEG (NEG); GLUCOSE,URINE NEG (NEG); KETONE, URINE NEG (NEG); MUCUS URINE FEW /lpf (OCC); NITRITE,URINE NEG (NEG); SQUAMOUS EPITHELIAL CELL URINE 6 /hpf (0-5); URINE COLOR YELLOW (YELLW/STRAW); URINE LEUKOCYTE ESTERASE TRACE (NEG)
[2017-11-08 19:42] LABS: ALKALINE PHOSPHATASE 777 U/L (45-117); TOTAL BILIRUBIN ADULT 0.3 MG/DL (0.2-1.0); TOTAL PROTEIN 6.4 GM/DL (6.4-8.2)
[2017-11-08 21:24] VITALS: BP 111/66; PULSE 87; RESP 20; TEMP 99.1; O2SAT 96
[2017-11-08] MEDS ORDERED: NALOXONE HCL 0.4 MG/ML AMP IV PUSH PRN (21:45)
[2017-11-08] MEDS ORDERED: IOHEXOL 350 MG/ML 10 ML VIAL (for RAD DIAG) IVCONTRAST ONE (21:45)
[2017-11-08] MEDS ORDERED: ONDANSETRON HCL 4 MG/2 ML VIAL IVP PRN (21:45)
[2017-11-08] MEDS ORDERED: GADODIAMIDE PF 287 MG/ML 5 ML VIAL (for RAD MRI) IVCONTRAST ONE (21:45)
[2017-11-08] MEDS ORDERED: TEMAZEPAM 15 MG CAP PO PRN (21:45)
[2017-11-08] MEDS ORDERED: SODIUM CHLORIDE 0.9% FLUSH 10 ML FLUSH IV FLUSH PRN (21:45)
[2017-11-08] MEDS ORDERED: ALPRAZolam 0.5 MG TAB PO PRN (22:00)
--- NOTE | 2017-11-08 22:36 | PD ---
Physical Exam Date Seen by Provider: Nov 08, 2017 Narrative 32-year-old female came to the emergency room with history of fever. Patient is seen by my nurse practitioner and I'm supervising her. Patient has history of inflammatory bowel disease and has had bowel surgery in the past. However this time she's not complaining of any abdominal pain, nausea or vomiting. Her main complaint is the fever with body aches and chills. Blood work was done which shows elevated CRP and elevated liver function tests. I went and examined the patient and did abdominal assessment. Abdomen is completely benign. Patient once again confirms that she does not have any abdominal pain this time. The source of this fever is unknown at this point. Patient is on Imran which being an immunosuppressant is concerning with this fever of unknown origin and the elevated CRP. My recommendation at this point is to admit the patient at least for observation and repeat blood test and reassess. The nurse practitioner discussed the case with the hospitalist was accepted the patient. Patient is okay with this plan as well. Data Data Last Documented VS Orders Orders Sepsis Workup Initiated (11/08/17 ) Complete Blood Count With Diff (11/08/17 17:58) Comprehensive Metabolic Panel (11/08/17 17:58) Prothrombin Time / Inr (Pt) (11/08/17:58) Act Partial Throm Time (Ptt) (11/08/17 17:58) Lactic Acid Sepsis Protocol (11/08/17 17:58) Urinalysis - C+S If Indicated (11/08/17 17:58) Blood Culture (11/08/17 17:58) Chest, Single Ap (11/08/17 17:58) Blood Glucose (11/08/17 17:58) Ecg Monitoring (11/08/17 17:58) Iv Access Insert/Monitor (11/08/17 17:58) Oximetry (11/08/17 17:58) Oxygen Administration (11/08/17 17:58) Acetaminophen (Tylenol) (11/08/17 18:00) Sodium Chlor 0.9% 1000 Ml Inj (Ns 1000 M (11/08/17 17:58) Sodium Chlor 0.9% 1000 Ml Inj (Ns 1000 M (11/08/17 17:58) Influenzae A/B Antigen (11/08/17 17:58) Urine Culture (11/08/17 18:54) C-Reactive Protein (Crp) (11/08/17 19:37) Admit Order (Ed Use Only) (11/08/17 21:42) Place In Observation (11/08/17 ) Code Status (11/08/17 21:35) Vital Signs (Adult) Q4H (11/08/17 21:35) Activity Oob With Assistance (11/08/17 21:35) Diet Regular Basic (11/09/17 Breakfast) Sodium Chloride 0.9% Flush (Ns Flush) (11/08/17 21:45) Sodium Chloride 0.9% Flush (Ns Flush) (11/09/17 09:00) Acetaminophen (Tylenol) (11/08/17 21:45) Ondansetron Inj (Zofran Inj) (11/08/17 21:45) Temazepam (Restoril) (11/08/17 21:45) Comprehensive Metabolic Panel (11/09/17 06:00) Complete Blood Count With Diff (11/09/17 06:00) Electrocardiogram (11/08/17 21:35) Scd Bilateral/Knee High MAE.BID (11/08/17 21:35) Naloxone Inj (Narcan Inj) (11/08/17 21:45) Alprazolam (Xanax) (11/08/17 22:00) Levothyroxine (Synthroid) (11/09/17 06:00) Magnesium Hydroxide Liq (Milk Of Magnesi (11/09/17 09:00) Pantoprazole (Protonix) (11/09/17 09:00) Labs Laboratory Tests Test 11/08/17 18:20 11/08/17 18:54 White Blood Count 4.6 TH/MM3 Red Blood Count 4.12 MIL/MM3 Hemoglobin 10.5 GM/DL Hematocrit 31.8 % Mean Corpuscular Volume 77.2 FL Mean Corpuscular Hemoglobin 25.6 PG Mean Corpuscular Hemoglobin Concent 33.1 % Red Cell Distribution Width 16.4 % Platelet Count 211 TH/MM3 Mean Platelet Volume 8.0 FL Neutrophils (%) (Auto) 52.1 % Lymphocytes (%) (Auto) 38.9 % Monocytes (%) (Auto) 7.9 % Eosinophils (%) (Auto) 0.5 % Basophils (%) (Auto) 0.6 % Neutrophils # (Auto) 2.4 TH/MM3 Lymphocytes # (Auto) 1.8 TH/MM3 Monocytes # (Auto) 0.4 TH/MM3 Eosinophils # (Auto) 0.0 TH/MM3 Basophils # (Auto) 0.0 TH/MM3 CBC Comment AUTO DIFF Differential Total Cells Counted 100 Neutrophils % (Manual) 54 % Band Neutrophils % 5 % Lymphocytes % 37 % Monocytes % 3 % Basophils % 1 % Neutrophils # (Manual) 2.7 TH/MM3 Differential Comment FINAL DIFF MANUAL Platelet Estimate NORMAL Platelet Morphology Comment NORMAL Red Cell Morphology Comment NORMAL Prothrombin Time 11.9 SEC Prothromb Time International Ratio 1.2 RATIO Activated Partial Thromboplast Time 31.5 SEC Blood Urea Nitrogen 15 MG/DL Creatinine 1.08 MG/DL Random Glucose 85 MG/DL Total Protein 6.4 GM/DL Albumin 2.6 GM/DL Calcium Level 8.0 MG/DL Alkaline Phosphatase 777 U/L Aspartate Amino Transf (AST/SGOT) 90 U/L Alanine Aminotransferase (ALT/SGPT) 61 U/L Total Bilirubin 0.3 MG/DL Sodium Level 137 MEQ/L Potassium Level 3.3 MEQ/L Chloride Level 105 MEQ/L Carbon Dioxide Level 21.4 MEQ/L Anion Gap 9 MEQ/L Estimat Glomerular Filtration Rate 59 ML/MIN Lactic Acid Level 1.3 mmol/L C-Reactive Protein 4.82 MG/DL Urine Color YELLOW Urine Turbidity HAZY Urine pH 6.0 Urine Specific [place] 1.026 Urine Protein 30 mg/dL Urine Glucose (UA) NEG mg/dL Urine Ketones NEG mg/dL Urine Occult Blood NEG Urine Nitrite NEG Urine Bilirubin NEG Urine Urobilinogen LESS THAN 2.0 MG/DL Urine Leukocyte Esterase TRACE Urine WBC 5 /hpf Urine Squamous Epithelial Cells 6 /hpf Urine Bacteria RARE /hpf Urine Mucus FEW /lpf Microscopic Urinalysis Comment CATH-CULTURE IND MDM Supervised Visit with XAVIER: Yes Diagnosis Primary Impression: Fever of unknown origin Additional Impression: Crohns disease Qualified Codes: K50.919 - Crohn's disease, unspecified, with unspecified complications Condition: Stable Elina Lieberman MD Nov 08, 2017 22:36
[2017-11-09 00:30] VITALS: BP 113/69; PULSE 89; RESP 18; TEMP 99.6; O2SAT 99
[2017-11-09 04:43] VITALS: BP 124/71; PULSE 97; RESP 18; TEMP 100.8; O2SAT 96
[2017-11-09] MEDS: ACETAMINOPHEN 325 MG TAB PO PRN ×2 (05:01→20:51)
[2017-11-09] MEDS: LEVOTHYROXINE SODIUM 150 MCG TAB PO SCH (05:01)
--- NOTE | 2017-11-09 08:14 | HHI.HP ---
HPI Service [facility] Hospitalists Primary Care Physician Thuy Reyez MD Admission Diagnosis FEVER OF UNKNOWN ORIGIN Chief Complaint: fever Travel History International Travel<30 Days: No Contact w/Intl Traveler <30 Da: No Traveled to Known Affected Are: No History of Present Illness This is a 32 year old female with a past medical history which includes Crohn's disease s/p bowel resection with colostomy reversal, TIA after Epogen, gastroparesis and anxiety/depression. Patient was started on Imuran 4 weeks ago by advanced gastroenterology due to continue mucous like diarrhea. Patient presented to the ER with c/o fever x 7 days. Her main complaint is the fever with body aches and chills. Blood work was done which shows elevated CRP and elevated liver function tests. Patient denies any abdominal pain, nausea/ vomiting, diarrhea, dysuria, increased urinary frequency, cough or chest congestion. Past Family Social History Past Medical History bowel resection with colostomy reversal, TIA after Epogen, gastroparesis and anxiety/depression Past Surgical History C section x 2 thyroidectomy 2008 Breast augmentation 2008 ORIF right ankle Bowel resection 2017 colostomy reversal 2017 Reported Medications Xanax (Alprazolam) 0.5 Mg Tab 0.5 Mg PO Q6H PRN Imuran (Azathioprine) 50 Mg Tab 50 Mg PO DAILY Hazardous agent: use appropriate precautions for handling and disposal. Synthroid (Levothyroxine Sodium) 150 Mcg Tab 150 Mcg PO DAILY B-12 (Cyanocobalamin) 1,000 Mcg Subl 1,500 Mcg SL DAILY Welchol (Colesevelam HCl) 625 Mg Tab Unknown Dose PO Q8HR PRN D3-2000 (Cholecalciferol (Vitamin D3)) 2,000 Unit Capsule Unknown Dose PO DAILY Protonix (Pantoprazole Sodium) 20 Mg Tab 40 Mg PO DAILY Allergies: Coded Allergies: codeine (Unverified Allergy, Severe, HIVES AND SHORTNESS OF BREATH, ) latex (Unverified Allergy, Severe, RASH AND SWELLING, 11/08/17) levofloxacin (Unverified Adverse Reaction, Severe, HOURSE THROAT AND SOB, 11/08/17) Family History paternal grandfather had colon CA maternal grandmother also had colon CA Social History 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 SKIN: No rashes, ecchymoses or lesions. Cool and dry. multiple healed abd surgical scars, various tattoos HEAD: Atraumatic. Normocephalic. No temporal or scalp tenderness. EYES: Extraocular motions intact. No scleral icterus. No injection or drainage. CARDIOVASCULAR: Regular rate and rhythm RESPIRATORY: Clear to auscultation. Breath sounds equal bilaterally. GASTROINTESTINAL: Abdomen soft, non-tender, nondistended. chronic paraesthesia suprapubic area MUSCULOSKELETAL: Extremities without clubbing, cyanosis, or edema. No joint tenderness, effusion, or edema noted. No calf tenderness. Negative Homans sign bilaterally. NEUROLOGICAL: Awake and alert. Motor and sensory grossly within normal limits. Five out of 5 muscle strength in all muscle groups. Normal speech. Laboratory Laboratory Tests Test 11/08/17 18:20 11/08/17 18:54 White Blood Count 4.6 Red Blood Count 4.12 Hemoglobin 10.5 Hematocrit 31.8 Mean Corpuscular Volume 77.2 Mean Corpuscular Hemoglobin 25.6 Mean Corpuscular Hemoglobin Concent 33.1 Red Cell Distribution Width 16.4 Platelet Count 211 Mean Platelet Volume 8.0 Neutrophils (%) (Auto) 52.1 Lymphocytes (%) (Auto) 38.9 Monocytes (%) (Auto) 7.9 Eosinophils (%) (Auto) 0.5 Basophils (%) (Auto) 0.6 Neutrophils # (Auto) 2.4 Lymphocytes # (Auto) 1.8 Monocytes # (Auto) 0.4 Eosinophils # (Auto) 0.0 Basophils # (Auto) 0.0 CBC Comment AUTO DIFF Differential Total Cells Counted 100 Neutrophils % (Manual) 54 Band Neutrophils % 5 Lymphocytes % 37 Monocytes % 3 Basophils % 1 Neutrophils # (Manual) 2.7 Differential Comment FINAL DIFF MANUAL Platelet Estimate NORMAL Platelet Morphology Comment NORMAL Red Cell Morphology Comment NORMAL Prothrombin Time 11.9 Prothromb Time International Ratio 1.2 Activated Partial Thromboplast Time 31.5 Blood Urea Nitrogen 15 Creatinine 1.08 Random Glucose 85 Total Protein 6.4 Albumin 2.6 Calcium Level 8.0 Alkaline Phosphatase 777 Aspartate Amino Transf (AST/SGOT) 90 Alanine Aminotransferase (ALT/SGPT) 61 Total Bilirubin 0.3 Sodium Level 137 Potassium Level 3.3 Chloride Level 105 Carbon Dioxide Level 21.4 Anion Gap 9 Estimat Glomerular Filtration Rate 59 Lactic Acid Level 1.3 C-Reactive Protein 4.82 Urine Color YELLOW Urine Turbidity HAZY Urine pH 6.0 Urine Specific [place] 1.026 Urine Protein 30 Urine Glucose (UA) NEG Urine Ketones NEG Urine Occult Blood NEG Urine Nitrite NEG Urine Bilirubin NEG Urine Urobilinogen LESS THAN 2.0 Urine Leukocyte Esterase TRACE Urine WBC 5 Urine Squamous Epithelial Cells 6 Urine Bacteria RARE Urine Mucus FEW Microscopic Urinalysis Comment CATH-CULTURE IND Date/Time Source Procedure Growth Status 11/08/17 18:20 Blood Peripheral Aerobic Blood Culture Pending Received 11/08/17 18:20 Blood Peripheral Anaerobic Blood Culture Pending Received 11/08/17 18:20 Nasal Washing Influenza Types A,B Antigen (AKOSUA) - Final NEGATIVE FOR FLU A AND B ANTIGEN.... Complete 11/08/17 18:54 Urine Catheterized Urine Urine Culture Pending Received Result Diagram: 11/08/17 1820 11/08/17 1820 Imaging Last Impressions Chest X-Ray 11/08/17 1758 Signed Impressions: Service Date/Time: Wednesday, November 08, 2017 18:25 - CONCLUSION: 1. No acute cardiopulmonary findings. Jerad Jerez MD Caprini VTE Risk Assessment Caprini VTE Risk Assessment: No/Low Risk (score <= 1) Caprini Risk Assessment Model Point Value = 1 Point Value = 2 Point Value = 3 Point Value = 5 Age 41-60 Minor surgery BMI > 25 kg/m2 Swollen legs Varicose veins or History of unexplained or recurrent spontaneous Oral contraceptives or hormone replacement Sepsis (< 1 month) Serious lung disease, including pneumonia (< 1 month) Abnormal pulmonary function Acute myocardial infarction Congestive heart failure (< 1 month) History of inflammatory bowel disease Medical patient at bed rest Age 61-74 Arthroscopic surgery Major open surgery (> 45 min) Laparoscopic surgery (> 45 min) Malignancy Confined to bed (> 72 hours) Immobilizing plaster cast Central venous access Age >= 75 History of VTE Family history of VTE Factor V Leiden Prothrombin [id number] Lupus anticoagulant Anticardiolipin antibodies Elevated serum homocysteine Heparin-induced thrombocytopenia Other congenital or acquired thrombophilia Stroke (< 1 month) Elective arthroplasty Hip, pelvis, or leg fracture Acute spinal cord injury (< 1 month) Prophylaxis Regimen Total Risk Factor Score Risk Level Prophylaxis Regimen 0-1 Low Early ambulation 2 Moderate Order ONE of the following: *Sequential Compression Device (SCD) *Heparin 5000 units SQ BID 3-4 Higher Order ONE of the following medications: *Heparin 5000 units SQ TID *Enoxaparin/Lovenox 40 mg SQ daily (WT < 150 kg, CrCl > 30 mL/min) *Enoxaparin/Lovenox 30 mg SQ daily (WT < 150 kg, CrCl > 10-29 mL/min) *Enoxaparin/Lovenox 30 mg SQ BID (WT < 150 kg, CrCl > 30 mL/min) AND/OR *Sequential Compression Device (SCD) 5 or more Highest Order ONE of the following medications: *Heparin 5000 units SQ TID (Preferred with Epidurals) *Enoxaparin/Lovenox 40 mg SQ daily (WT < 150 kg, CrCl > 30 mL/min) *Enoxaparin/Lovenox 30 mg SQ daily (WT < 150 kg, CrCl > 10-29 mL/min) *Enoxaparin/Lovenox 30 mg SQ BID (WT < 150 kg, CrCl > 30 mL/min) AND *Sequential Compression Device (SCD) Assessment and Plan Problem List: (1) Fever of unknown origin ICD Codes: R50.9 - Fever, unspecified Status: Acute Plan: Fever of unknown origin Crohn's disease This is a 32 year old female with a past medical history which includes Crohn's disease s/p bowel resection with colostomy reversal, TIA after Epogen, gastroparesis and anxiety/depression. Patient was started on Imuran 4 weeks ago by advanced gastroenterology due to continue mucous like diarrhea. Patient presented to the ER with c/o fever x 7 days. Her main complaint is the fever with body aches and chills. Blood work was done which shows elevated CRP and elevated liver function tests. Patient denies any abdominal pain, nausea/ vomiting, diarrhea, dysuria, increased urinary frequency, cough or chest congestion. WBC 4.6 UA showed trace leucocyte esterase - await culture results CXR: No acute cardiopulmonary disease Blood cultures obtained and pending Influenza A&B negative Imuran on hold consult to GI Supportive care monitor for fever and ss of infection Elevated Alkaline phosphorus Elevated AST Elevated ALT Alkaline phosphorus 777 AST 90 ALT 61 likely related to Imuran Recheck CMP pending Also check hepatitis profile, MARILEE screen, Mitochondrial, smooth muscle, Alpha-1- antitrypsin Anxiety continue home alprazolam Hypothyroidism Continue home Synthroid GI prophylaxis Protonix daily DVT prophylaxis with SCDs (2) Crohns disease ICD Codes: K50.90 - Crohn's disease, unspecified, without complications Status: Chronic (3) Anxiety ICD Codes: F41.9 - Anxiety disorder, unspecified Status: Acute (4) Elevated alkaline phosphatase level ICD Codes: R74.8 - Abnormal levels of other serum enzymes (5) Elevated liver enzymes ICD Codes: R74.8 - Abnormal levels of other serum enzymes Assessment and Plan Patient examined. Assessment and plan formulated with Tita Ochoa PA-C. I agree with the above. Crohns disease. recently placed on Imuran Had dental tooth extraction recently. presents with fever. unclear origin. consider Imuran which is on hold blood cx pending. hold abx for now. mrcp per GI due to elevation of lft but no abdomen pain. Problem Qualifiers (1) Crohns disease: Qualified Codes: K50.919 - Crohn's disease, unspecified, with unspecified complications Tita Ochoa Nov 09, 2017 08:14 Clement Man MD Nov 09, 2017 20:06
[2017-11-09] MEDS: SODIUM CHLORIDE 0.9% FLUSH 10 ML FLUSH IV FLUSH SCH ×2 (08:47→21:41)
[2017-11-09] MEDS: PANTOPRAZOLE SOD 40 MG DELAYED RELEASE TAB PO SCH (08:47)
[2017-11-09] MEDS ORDERED: MAGNESIUM HYDROXIDE SUSP 30 ML CUP PO PRN (09:00)
[2017-11-09 09:03] LABS: RETIC # 65.5 MIL/L (20.0-150.0); RETIC % 1.5 % (0.4-3.0)
[2017-11-09 09:04] LABS: AUTOMATED NEUTROPHIL # 2.2 TH/MM3 (1.8-7.7); BASOPHIL % 0.9 % (0.0-2.0); EOSINOPHIL % 0.1 % (0.0-4.0); HEMATOCRIT 33.9 % (35.0-46.0); LYMPH % 43.5 % (9.0-44.0); LYMPHOCYTE # 1.9 TH/MM3 (1.0-4.8); MEAN CORPUSCULAR HEMOGLOBIN 25.2 PG (27.0-34.0); MEAN CORPUSCULAR HGB CONC 32.3 % (32.0-36.0); MONO % 7.1 % (0.0-8.0); MONOCYTE # 0.3 TH/MM3 (0-0.9); NEUT % 48.4 % (16.0-70.0); PLATELET COUNT 203 TH/MM3 (150-450); RED BLOOD COUNT 4.34 MIL/MM3 (4.00-5.30); RED CELL DISTRIBUTION WIDTH 16.6 % (11.6-17.2); WHITE BLOOD COUNT 4.5 TH/MM3 (4.0-11.0)
[2017-11-09 09:24] VITALS: BP 116/62; PULSE 81; RESP 16; TEMP 99.9; O2SAT 99
[2017-11-09 09:26] LABS: ALBUMIN 2.3 GM/DL (3.4-5.0); AST (GOT) 75 U/L (15-37); BICARBONATE 22.4 MEQ/L (21.0-32.0); BLOOD UREA NITROGEN 10 MG/DL (7-18); CALCIUM 7.6 MG/DL (8.5-10.1); CHLORIDE 109 MEQ/L (98-107); CREATININE 0.97 MG/DL (0.50-1.00); GLOMERULAR FILTRATION RATE 67 ML/MIN (>89); GLUCOSE,RANDOM 72 MG/DL (74-106); SODIUM (NA) 140 MEQ/L (136-145)
[2017-11-09 09:27] LABS: ALT (GPT) 52 U/L (10-53)
[2017-11-09 09:32] LABS: % SATURATION IRON PROFILE 7.7 % (20-50); ALKALINE PHOSPHATASE 732 U/L (45-117); FERRITIN 66 NG/ML (8-252); IRON (FE) 24 MCG/DL (50-170); TOTAL BILIRUBIN ADULT 0.4 MG/DL (0.2-1.0); TOTAL IRON BINDING CAPACITY 312 MCG/DL (250-450); TOTAL PROTEIN 5.9 GM/DL (6.4-8.2)
--- NOTE | 2017-11-09 10:31 | EKG ---
Date Performed: 11/09/2017 Time Performed: 00:00:02 PTAGE: 32 years EKG: Sinus rhythm BORDERLINE RIGHT AXIS DEVIATION LOW QRS VOLTAGE IN PRECORDIAL LEADS POSSIBLE RIGHT VENTRICULAR CONDU CTION DELAY MODERATE T-WAVE ABNORMALITY, CONSIDER ANTERIOR ISCHEMIA Compared to previous tracing the patient is no longer tachycardic ABNORMAL ECG PREVIOUS TRACING : 08/10/2016 19.51 DOCTOR: Anjana Celeste Interpretating Date/Time 11/09/2017 10:30:14
[2017-11-09 12:54] VITALS: BP 117/82; PULSE 96; RESP 16; TEMP 100.3; O2SAT 98
--- NOTE | 2017-11-09 13:48 | PD.CONS ---
HPI History of Present Illness This is a 32 year old female with hx Crohn's disease s/p small bowel resection and colostomy reversal 09/2016 who presented with fever. GI has been consutled for elevated LFTs, IBD. She has had fevers for the last 7 days. Denies any other unusual symptoms. No change bowel habits, no more n/v than usual, no jaundice. She started imuran 1 months ago. She stopped taking it Thursday but is still having fevers. She says she has numbness in her lower abd since a c section in 07/2017. She admits being told she has fatty liver. She had CT showing hepatomegaly and poss hemangioma 09/2016. Last colonoscopy was 2015 and found stricture terminal ileum, EGD showed hiatal hernia, duodenitis. (Emperatriz Collier) PFSH Past Medical History crohn's gastroparesis Past Surgical History small bowel resection ileo colostomy colectomy colostomy reversal es lap CLARK C SECTION (Emperatriz Collier) Coded Allergies: codeine (Unverified Allergy, Severe, HIVES AND SHORTNESS OF BREATH, ) latex (Unverified Allergy, Severe, RASH AND SWELLING, 11/08/17) levofloxacin (Unverified Adverse Reaction, Severe, HOURSE THROAT AND SOB, 11/08/17) Family History thyroid with multinodular goiter thyroidectomy Social History rare etoh smokes 1/2ppd (Emperatriz Collier) Review of Systems Constitutional: COMPLAINS OF: Fever Endocrine: DENIES: Polydipsia Eyes: DENIES: Blurred vision Ears, nose, mouth, throat: DENIES: Hearing loss Respiratory: DENIES: Cough Cardiovascular: DENIES: Chest pain Gastrointestinal: COMPLAINS OF: Diarrhea, DENIES: Abdominal pain, Black stools , Bloody stools, Nausea, Vomiting Genitourinary: DENIES: Urinary incontinence Musculoskeletal: DENIES: Joint pain Integumentary: DENIES: Abnormal pigmentation, Jaundice Hematologic/lymphatic: DENIES: Bruising Immunologic/allergic: DENIES: Eczema Neurologic: DENIES: Abnormal gait Psychiatric: DENIES: Confusion (Emperatriz Collier) GI Exam Vitals I&O Vital Signs Date Time Temp Pulse Resp B/P (MAP) Pulse Ox O2 Delivery O2 Flow Rate FiO2 11/09/17 12:54 100.3 96 16 117/82 (94) 98 11/09/17 09:24 99.9 81 16 116/62 (80) 99 11/09/17 04:43 100.8 97 18 124/71 (88) 96 11/09/17 00:30 99.6 89 18 113/69 (84) 99 11/08/17 21:24 99.1 87 20 111/66 (81) 96 Room Air 11/08/17 18:09 97 Room Air 11/08/17 17:39 102.1 119 18 123/90 (101) 99 I/O 11/08/17 11/08/17 11/08/17 11/09/17 11/09/17 11/09/17 07:00 15:00 23:00 07:00 15:00 23:00 Intake Total 1800 ml Balance 1800 ml Intake IV Total 1800 ml Imaging Last Impressions Chest X-Ray 11/08/17 2573 Signed Impressions: Service Date/Time: Wednesday, November 08, 2017 18:25 - CONCLUSION: 1. No acute cardiopulmonary findings. Jerad Jerez MD Laboratory Test 11/08/17 18:20 11/08/17 18:54 11/09/17 08:25 White Blood Count 4.6 TH/MM3 4.5 TH/MM3 Red Blood Count 4.12 MIL/MM3 4.34 MIL/MM3 Hemoglobin 10.5 GM/DL 11.0 GM/DL Hematocrit 31.8 % 33.9 % Mean Corpuscular Volume 77.2 FL 78.0 FL Mean Corpuscular Hemoglobin 25.6 PG 25.2 PG Mean Corpuscular Hemoglobin Concent 33.1 % 32.3 % Red Cell Distribution Width 16.4 % 16.6 % Platelet Count 211 TH/MM3 203 TH/MM3 Mean Platelet Volume 8.0 FL 8.0 FL Neutrophils (%) (Auto) 52.1 % 48.4 % Lymphocytes (%) (Auto) 38.9 % 43.5 % Monocytes (%) (Auto) 7.9 % 7.1 % Eosinophils (%) (Auto) 0.5 % 0.1 % Basophils (%) (Auto) 0.6 % 0.9 % Neutrophils # (Auto) 2.4 TH/MM3 2.2 TH/MM3 Lymphocytes # (Auto) 1.8 TH/MM3 1.9 TH/MM3 Monocytes # (Auto) 0.4 TH/MM3 0.3 TH/MM3 Eosinophils # (Auto) 0.0 TH/MM3 0.0 TH/MM3 Basophils # (Auto) 0.0 TH/MM3 0.0 TH/MM3 CBC Comment AUTO DIFF DIFF FINAL Differential Total Cells Counted 100 Neutrophils % (Manual) 54 % Band Neutrophils % 5 % Lymphocytes % 37 % Monocytes % 3 % Basophils % 1 % Neutrophils # (Manual) 2.7 TH/MM3 Differential Comment FINAL DIFF MANUAL Platelet Estimate NORMAL Platelet Morphology Comment NORMAL Red Cell Morphology Comment NORMAL Prothrombin Time 11.9 SEC Prothromb Time International Ratio 1.2 RATIO Activated Partial Thromboplast Time 31.5 SEC Blood Urea Nitrogen 15 MG/DL 10 MG/DL Creatinine 1.08 MG/DL 0.97 MG/DL Random Glucose 85 MG/DL 72 MG/DL Total Protein 6.4 GM/DL 5.9 GM/DL Albumin 2.6 GM/DL 2.3 GM/DL Calcium Level 8.0 MG/DL 7.6 MG/DL Alkaline Phosphatase 777 U/L 732 U/L Aspartate Amino Transf (AST/SGOT) 90 U/L 75 U/L Alanine Aminotransferase (ALT/SGPT) 61 U/L 52 U/L Total Bilirubin 0.3 MG/DL 0.4 MG/DL Sodium Level 137 MEQ/L 140 MEQ/L Potassium Level 3.3 MEQ/L 3.3 MEQ/L Chloride Level 105 MEQ/L 109 MEQ/L Carbon Dioxide Level 21.4 MEQ/L 22.4 MEQ/L Anion Gap 9 MEQ/L 9 MEQ/L Estimat Glomerular Filtration Rate 59 ML/MIN 67 ML/MIN Lactic Acid Level 1.3 mmol/L C-Reactive Protein 4.82 MG/DL 4.80 MG/DL Urine Color YELLOW Urine Turbidity HAZY Urine pH 6.0 Urine Specific [place] 1.026 Urine Protein 30 mg/dL Urine Glucose (UA) NEG mg/dL Urine Ketones NEG mg/dL Urine Occult Blood NEG Urine Nitrite NEG Urine Bilirubin NEG Urine Urobilinogen LESS THAN 2.0 MG/DL Urine Leukocyte Esterase TRACE Urine WBC 5 /hpf Urine Squamous Epithelial Cells 6 /hpf Urine Bacteria RARE /hpf Urine Mucus FEW /lpf Microscopic Urinalysis Comment CATH-CULTURE IND Reticulocyte Count 1.5 % Absolute Reticulocyte Count 65.5 MIL/L Iron Level 24 MCG/DL Total Iron Binding Capacity 312 MCG/DL Percent Iron Saturation 7.7 % Ferritin 66 NG/ML Hepatitis A IgM Antibody NONREACTIVE Hepatitis B Surface Antigen NONREACTIVE Hepatitis B Core IgM Antibody NONREACTIVE Hepatitis C IgG Antibody NONREACTIVE Date/Time Source Procedure Growth Status 11/08/17 18:20 Blood Peripheral Aerobic Blood Culture - Preliminary NO GROWTH IN 1 DAY Resulted 11/08/17 18:20 Blood Peripheral Anaerobic Blood Culture - Preliminary NO GROWTH IN 1 DAY Resulted 11/08/17 18:20 Nasal Washing Influenza Types A,B Antigen (AKOSUA) - Final NEGATIVE FOR FLU A AND B ANTIGEN.... Complete 11/08/17 18:54 Urine Catheterized Urine Urine Culture - Preliminary RESULTS PENDING Resulted Physical Examination HEENT: PERRL; normocephalic; atraumatic; no jaundice. CHEST: Chest is clear to auscultation and percussion. CARDIAC: Regular rate and rhythm with no murmur gallop or rubs. ABDOMEN: Soft, mildly distended, nontender; no hepatosplenomegaly; bowel sounds are present in all four quadrants. EXTREMITIES: No clubbing, cyanosis, or edema. SKIN: Normal; no rash; no jaundice. RETURNS CLERK: No focal deficits; alert and oriented times three. (Emperatriz Collier) Assessment and Plan Plan ASSESSMENT - elevated LFTs - have been trending up since 2016 but significant increase of late. ?DILI started imuran 1 m ago no other sx - crohn's s/p colostomy reversal PLAN - await liver w/u - monitor LFTs - MRCP - BETH - further recs to follow pt seen by myself and Dr Keene and rayo note is on her behalf (Emperatriz Collier) Physician Comments seen, examined agree with above if mrcp negative hida scan hold imuran for now (Antonia Keene MD) Emperatriz Collier Nov 09, 2017 13:48 Antonia Keene MD Nov 09, 2017 18:53
[2017-11-09] MEDS ORDERED: POTASSIUM CHLORIDE 20 MEQ CONTROLLED RELEASE TAB PO ONE (14:30)
[2017-11-09 17:06] VITALS: BP 121/74; PULSE 83; RESP 16; TEMP 99.9; O2SAT 98
--- NOTE | 2017-11-09 17:28 | RADRPT ---
EXAM DATE/TIME: 11/09/2017 16:11 [facility] COMPARISON: CT ABDOMEN & PELVIS W CONTRAST, October 09, 2016, 8:23. INDICATIONS : Abdominal pain. Unexplained fevers with elevated LFTs, possible hemangioma. CONTRAST: 11 cc Omniscan (gadodiamide) IV MEDICAL HISTORY : Colitis. SURGICAL HISTORY : Thyroidectomy. Ileostomy, Colonostemy. ENCOUNTER: Initial ACUITY: 1 week PAIN SCORE: 0/10 LOCATION: Bilateral upper quadrant TECHNIQUE: Multiplanar, multisequence magnetic resonance imaging of the abdomen was performed. High-resolution 3D dataset was utilized to reconstruct maximum-intensity projection (MIP) images. FINDINGS: INTRAHEPATIC BILE DUCTS: Within normal limits. No significant anatomical variant is present. EXTRAHEPATIC BILE DUCTS: The common bile duct measures 4 mm No stone or filling defect is identified. No distal obstructing ma ss is visualized. GALLBLADDER: No stones, wall thickening, or pericholecystic fluid. LIVER: Enlarged without focal mass. PANCREAS: The main pancreatic duct is normal in size. There is no significant anatomical variant. Signal inte nsity is within normal limits. No mass is visualized. OTHER: Mild splenomegaly CONCLUSION: Hepatosplenomegaly. Focally unremarkable MR and MRCP appearance otherwise Rober Weeks MD on November 09, 2017 at 17:17 Board Certified Radiologist. This report was verified electronically.
[2017-11-09 20:34] VITALS: BP 130/81; PULSE 99; RESP 15; TEMP 102.7; O2SAT 97
[2017-11-10 02:22] VITALS: BP 101/62; PULSE 89; RESP 18; TEMP 98.9; O2SAT 97
[2017-11-10 06:03] VITALS: TEMP 99.9
[2017-11-10] MEDS: LEVOTHYROXINE SODIUM 150 MCG TAB PO SCH (06:05)
[2017-11-10] MEDS: ACETAMINOPHEN 325 MG TAB PO PRN ×2 (06:05→18:30)
[2017-11-10] MEDS: SODIUM CHLORIDE 0.9% FLUSH 10 ML FLUSH IV FLUSH SCH ×2 (08:32→21:48)
[2017-11-10] MEDS: PANTOPRAZOLE SOD 40 MG DELAYED RELEASE TAB PO SCH (08:32)
--- NOTE | 2017-11-10 09:22 | HHI.GIFU ---
Subjective Remarks Pt resting in bed. still with fevers. No other sx. Wants a shower. (Emperatriz Collier) Objective Vitals I&O Vital Signs Date Time Temp Pulse Resp B/P (MAP) Pulse Ox O2 Delivery O2 Flow Rate FiO2 11/10/17 06:03 99.9 11/10/17 02:22 98.9 89 18 101/62 (75) 97 11/09/17 20:34 102.7 99 15 130/81 (97) 97 11/09/17 17:06 99.9 83 16 121/74 (90) 98 11/09/17 12:54 100.3 96 16 117/82 (94) 98 11/09/17 09:24 99.9 81 16 116/62 (80) 99 Laboratory Date/Time Source Procedure Growth Status 11/08/17 18:20 Blood Peripheral Aerobic Blood Culture - Preliminary NO GROWTH IN 1 DAY Resulted 11/08/17 18:20 Blood Peripheral Anaerobic Blood Culture - Preliminary NO GROWTH IN 1 DAY Resulted 11/08/17 18:20 Nasal Washing Influenza Types A,B Antigen (AKOSUA) - Final NEGATIVE FOR FLU A AND B ANTIGEN.... Complete 11/08/17 18:54 Urine Catheterized Urine Urine Culture - Preliminary RESULTS PENDING Resulted Imaging Last Impressions Cholangiopancreatography MRI 11/09/17 0000 Signed Impressions: Service Date/Time: Thursday, November 09, 2017 16:11 - CONCLUSION: Hepatosplenomegaly. Focally unremarkable MR and MRCP appearance otherwise Rober Weeks MD Chest X-Ray 11/08/17 1758 Signed Impressions: Service Date/Time: Wednesday, November 08, 2017 18:25 - CONCLUSION: 1. No acute cardiopulmonary findings. Jerad Jerez MD Physical Exam HEENT: PERRL; normocephalic; atraumatic; no jaundice. CHEST: CTA CARDIAC: RRR ABDOMEN: Soft, nondistended, nontender;mild hepatomegaly; bowel sounds are present in all four quadrants. EXTREMITIES: No clubbing, cyanosis, or edema. SKIN: Normal; no rash; no jaundice. PACKAGING TECH: No focal deficits; alert and oriented times three. (Emperatriz Collier) Assessment and Plan Plan ASSESSMENT - elevated LFTs - have been trending up since 2016 but significant increase of late. ?DILI started imuran 1 m ago no other sx - crohn's s/p colostomy reversal 11/10/17 - still febrile. MRCP noted hepatosplenomegaly. HIDA pending. hepatitis panel neg. mild decrease LFTs PLAN - await HIDA - monoscreen - monitor LFTs - hold imuran - BETH - further recs to follow pt seen by myself and Dr Keene and rayo note is on her behalf (Emperatriz Collier) Physician Comments possible drug fever r/o cmv, herpes hida -decreased ejection fraction-no indication of cholecystitis stool studies, cmv, herpes, ebv titers. alp isoenzymes tb Qu[facility] echocardiogram if no improvement consider ID evaluation , liver biopsy (Antonia Keene MD) Emperatriz Collier Nov 10, 2017 09:22 Antonia Keene MD Nov 10, 2017 13:13
--- NOTE | 2017-11-10 09:25 | HHI.PR ---
Subjective Remarks Patient reports she still feels unwell with fevers and body aches T Max 102.7 11/09/17 at 2000 Objective Vitals Vital Signs Date Time Temp Pulse Resp B/P (MAP) Pulse Ox O2 Delivery O2 Flow Rate FiO2 11/10/17 06:03 99.9 11/10/17 02:22 98.9 89 18 101/62 (75) 97 11/09/17 20:34 102.7 99 15 130/81 (97) 97 11/09/17 17:06 99.9 83 16 121/74 (90) 98 11/09/17 12:54 100.3 96 16 117/82 (94) 98 11/09/17 09:24 99.9 81 16 116/62 (80) 99 Result Diagram: 11/09/17 0825 11/09/17 0825 Other Results Laboratory Tests Test 11/08/17 18:20 11/08/17 18:54 11/09/17 08:25 White Blood Count 4.6 TH/MM3 4.5 TH/MM3 Red Blood Count 4.12 MIL/MM3 4.34 MIL/MM3 Hemoglobin 10.5 GM/DL 11.0 GM/DL Hematocrit 31.8 % 33.9 % Mean Corpuscular Volume 77.2 FL 78.0 FL Mean Corpuscular Hemoglobin 25.6 PG 25.2 PG Mean Corpuscular Hemoglobin Concent 33.1 % 32.3 % Red Cell Distribution Width 16.4 % 16.6 % Platelet Count 211 TH/MM3 203 TH/MM3 Mean Platelet Volume 8.0 FL 8.0 FL Neutrophils (%) (Auto) 52.1 % 48.4 % Lymphocytes (%) (Auto) 38.9 % 43.5 % Monocytes (%) (Auto) 7.9 % 7.1 % Eosinophils (%) (Auto) 0.5 % 0.1 % Basophils (%) (Auto) 0.6 % 0.9 % Neutrophils # (Auto) 2.4 TH/MM3 2.2 TH/MM3 Lymphocytes # (Auto) 1.8 TH/MM3 1.9 TH/MM3 Monocytes # (Auto) 0.4 TH/MM3 0.3 TH/MM3 Eosinophils # (Auto) 0.0 TH/MM3 0.0 TH/MM3 Basophils # (Auto) 0.0 TH/MM3 0.0 TH/MM3 CBC Comment AUTO DIFF DIFF FINAL Differential Total Cells Counted 100 Neutrophils % (Manual) 54 % Band Neutrophils % 5 % Lymphocytes % 37 % Monocytes % 3 % Basophils % 1 % Neutrophils # (Manual) 2.7 TH/MM3 Differential Comment FINAL DIFF MANUAL Platelet Estimate NORMAL Platelet Morphology Comment NORMAL Red Cell Morphology Comment NORMAL Prothrombin Time 11.9 SEC Prothromb Time International Ratio 1.2 RATIO Activated Partial Thromboplast Time 31.5 SEC Blood Urea Nitrogen 15 MG/DL 10 MG/DL Creatinine 1.08 MG/DL 0.97 MG/DL Random Glucose 85 MG/DL 72 MG/DL Total Protein 6.4 GM/DL 5.9 GM/DL Albumin 2.6 GM/DL 2.3 GM/DL Calcium Level 8.0 MG/DL 7.6 MG/DL Alkaline Phosphatase 777 U/L 732 U/L Aspartate Amino Transf (AST/SGOT) 90 U/L 75 U/L Alanine Aminotransferase (ALT/SGPT) 61 U/L 52 U/L Total Bilirubin 0.3 MG/DL 0.4 MG/DL Sodium Level 137 MEQ/L 140 MEQ/L Potassium Level 3.3 MEQ/L 3.3 MEQ/L Chloride Level 105 MEQ/L 109 MEQ/L Carbon Dioxide Level 21.4 MEQ/L 22.4 MEQ/L Anion Gap 9 MEQ/L 9 MEQ/L Estimat Glomerular Filtration Rate 59 ML/MIN 67 ML/MIN Lactic Acid Level 1.3 mmol/L C-Reactive Protein 4.82 MG/DL 4.80 MG/DL Urine Color YELLOW Urine Turbidity HAZY Urine pH 6.0 Urine Specific [place] 1.026 Urine Protein 30 mg/dL Urine Glucose (UA) NEG mg/dL Urine Ketones NEG mg/dL Urine Occult Blood NEG Urine Nitrite NEG Urine Bilirubin NEG Urine Urobilinogen LESS THAN 2.0 MG/DL Urine Leukocyte Esterase TRACE Urine WBC 5 /hpf Urine Squamous Epithelial Cells 6 /hpf Urine Bacteria RARE /hpf Urine Mucus FEW /lpf Microscopic Urinalysis Comment CATH-CULTURE IND Reticulocyte Count 1.5 % Absolute Reticulocyte Count 65.5 MIL/L Iron Level 24 MCG/DL Total Iron Binding Capacity 312 MCG/DL Percent Iron Saturation 7.7 % Ferritin 66 NG/ML Hepatitis A IgM Antibody NONREACTIVE Hepatitis B Surface Antigen NONREACTIVE Hepatitis B Core IgM Antibody NONREACTIVE Hepatitis C IgG Antibody NONREACTIVE Imaging Last Impressions Chest X-Ray 11/08/17 2983 Signed Impressions: Service Date/Time: Wednesday, November 08, 2017 18:25 - CONCLUSION: 1. No acute cardiopulmonary findings. Jerad Jerez MD Objective Remarks GENERAL: This is a well-nourished, well-developed patient, diaphoretic. CARDIOVASCULAR: Regular rate and rhythm RESPIRATORY: Clear to auscultation. Breath sounds equal bilaterally. GASTROINTESTINAL: Abdomen soft, non-tender, nondistended. Normal active bowel sounds MUSCULOSKELETAL: Extremities without clubbing, cyanosis, or edema. NEURO: Alert & Oriented x4 to person, place, time, situation. Moves all ext x4 A/P Problem List: (1) Fever of unknown origin ICD Codes: R50.9 - Fever, unspecified Status: Acute Plan: Fever of unknown origin Crohn's disease This is a 32 year old female with a past medical history which includes Crohn's disease s/p bowel resection with colostomy reversal, TIA after Epogen, gastroparesis and anxiety/depression. Patient was started on Imuran 4 weeks ago by [facility] due to continue mucous like diarrhea. Patient presented to the ER with c/o fever x 7 days. Her main complaint is the fever with body aches and chills. Blood work was done which shows elevated CRP and elevated liver function tests. Patient denies any abdominal pain, nausea/ vomiting, diarrhea, dysuria, increased urinary frequency, cough or chest congestion. on admission WBC 4.6 UA showed trace leucocyte esterase - await culture results CXR: No acute cardiopulmonary disease Blood cultures obtained and pending Influenza A&B negative Imuran on hold consult to GI Supportive care monitor for fever and ss of infection Elevated Alkaline phosphorus Elevated AST Elevated ALT Alkaline phosphorus 777 AST 90 ALT 61 likely related to Imuran Recheck CMP showed liver enzymes trending down Also check hepatitis profile nonreactive, MARILEE screen pending, Mitochondrial pending, smooth muscle pending, [id number] pending Anxiety continue home alprazolam Hypothyroidism Continue home Synthroid GI prophylaxis Protonix daily DVT prophylaxis with SCDs (2) Crohns disease ICD Codes: K50.90 - Crohn's disease, unspecified, without complications Status: Chronic (3) Anxiety ICD Codes: F41.9 - Anxiety disorder, unspecified Status: Acute (4) Elevated alkaline phosphatase level ICD Codes: R74.8 - Abnormal levels of other serum enzymes (5) Elevated liver enzymes ICD Codes: R74.8 - Abnormal levels of other serum enzymes Assessment and Plan Patient examined. Assessment and plan formulated with Tita Ochoa PA-C. I agree with the above. fever unknown origin. discussed with GI. will ask ID opinion. f/u pending studies. liver enzyme elevation noted. imuran on hold ?viral illness. blood cx ngtd. Problem Qualifiers (1) Crohns disease: Qualified Codes: K50.919 - Crohn's disease, unspecified, with unspecified complications Tita Ochoa Nov 10, 2017 09:25 Clement Man MD Nov 10, 2017 13:30
[2017-11-10 10:00] LABS: AUTOMATED NEUTROPHIL # 1.9 TH/MM3 (1.8-7.7); BASOPHIL % 0.4 % (0.0-2.0); EOSINOPHIL % 0.3 % (0.0-4.0); HEMATOCRIT 32.4 % (35.0-46.0); HEMOGLOBIN 10.6 GM/DL (11.6-15.3); LYMPH % 55.2 % (9.0-44.0); MEAN CELL VOLUME 77.6 FL (80.0-100.0); MEAN CORPUSCULAR HEMOGLOBIN 25.5 PG (27.0-34.0); MEAN CORPUSCULAR HGB CONC 32.9 % (32.0-36.0); MEAN PLATELET VOLUME 7.7 FL (7.0-11.0); MONO % 9.3 % (0.0-8.0); MONOCYTE # 0.5 TH/MM3 (0-0.9); NEUT % 34.8 % (16.0-70.0); PLATELET COUNT 178 TH/MM3 (150-450); RED BLOOD COUNT 4.17 MIL/MM3 (4.00-5.30); RED CELL DISTRIBUTION WIDTH 16.8 % (11.6-17.2); WHITE BLOOD COUNT 5.4 TH/MM3 (4.0-11.0)
[2017-11-10 10:33] LABS: ALBUMIN 2.2 GM/DL (3.4-5.0); AST (GOT) 58 U/L (15-37); BICARBONATE 24.6 MEQ/L (21.0-32.0); BLOOD UREA NITROGEN 7 MG/DL (7-18); CALCIUM 7.9 MG/DL (8.5-10.1); CHLORIDE 107 MEQ/L (98-107); CREATININE 0.95 MG/DL (0.50-1.00); GLOMERULAR FILTRATION RATE 68 ML/MIN (>89); GLUCOSE,RANDOM 83 MG/DL (74-106); SODIUM (NA) 139 MEQ/L (136-145)
[2017-11-10 10:37] LABS: ALKALINE PHOSPHATASE 631 U/L (45-117); ALT (GPT) 51 U/L (10-53); TOTAL BILIRUBIN ADULT 0.3 MG/DL (0.2-1.0); TOTAL PROTEIN 6.1 GM/DL (6.4-8.2)
[2017-11-10 10:51] LABS: BANDS 13 % (0-6); LYMPHOCYTES 40 % (9-44); MONOCYTES 4 % (0-8); NEUTROPHIL # MANUAL DIFF 2.9 TH/MM3 (1.8-7.7); POLYS (SEG NEUTROPHILS) 41 % (16-70)
[2017-11-10 11:54] LABS: MONOSCREEN NEG (NEG)
[2017-11-10] MEDS ORDERED: SINCALIDE 5 MCG/5 ML VIAL IV ONE (11:59)
--- NOTE | 2017-11-10 12:38 | RADRPT ---
EXAM DATE/TIME: 11/10/2017 10:39 [facility] COMPARISON: BILIARY QUANTITATIVE (HIDA), July 16, 2016, 10:10. INDICATIONS : Abdominal pain, nausea and vomiting. DOSE: 4 mCi Tc99m Mebrofenin IV MEDICATION: 1.08 mcg Cholecystokinin IV; No symptomatic response. Cholecystokinin was administered by slow infusion over 8 minutes beginning at 60 minutes. MEDICAL HISTORY : Crohn's disease. Stroke SURGICAL HISTORY : Thyroidectomy. section. Colon resection. ENCOUNTER: Initial ACUITY: 1 day PAIN SCALE: 4/10 LOCATION: Right upper quadrant TECHNIQUE: Following the intravenous administration of radiotracer, dynamic sequential image were performed with continuous acquisition. Time-activity curves were generated. FINDINGS: HEPATIC KINETICS: There is prompt uptake of radiotracer in the liver. No focal defects are seen. There is normal rate of washout from the hepatic parenchyma. BILIARY CLEARANCE: Activity is first seen in the extrahepatic biliary system at 15 minutes. There is normal excretion i nto the small bowel. GALLBLADDER: Activity is first seen in the gallbladder at 20 minutes. POST CHOLECYSTOKININ: After Cholecystokinin administration, there is poor emptying of the gallbladder with a 10% ejection f raction. Common bile duct kinetics are normal and there is no evidence of biliary obstruction. BILIARY ENTERIC REFLUX: None observed. CLINICAL: The patient was asymptomatic after Cholecystokinin administration. CONCLUSION: 1. No evidence of biliary tract obstruction. 2. Poor ejection fraction of the gallbladder at approximately 10%. This can be seen with chronic gall bladder disease. Ilan Marie MD on November 10, 2017 at 12:34 Board Certified Radiologist. This report was verified electronically.
[2017-11-10 13:07] LABS: ALPHA-1-ANTITRYPSIN 220 mg/dL (100 - 190)
[2017-11-10 13:53] LABS: SMOOTH MUSCLE TOTAL AUTOABS Negative (Negative)
[2017-11-10] MEDS ORDERED: DIATRIZOATE MEGLUM/DIATRIZOATE SOD 9 ML CUP PO ONE (14:15)
[2017-11-10 15:09] VITALS: BP 109/68; PULSE 98; RESP 20; TEMP 100; O2SAT 97
--- NOTE | 2017-11-10 16:25 | PD.CONS ---
History of Present Illness Service Infectious disease Consult Requested By Dr. Woo Reason for Consult Evaluate patient with fever of unknown origin Primary Care Physician Thuy Reyez MD Diagnoses: History of Present Illness Patient seen and examined. Records reviewed. Patient is a 32-year-old female, with history of Crohn's disease, has had multiple abdominal surgeries due to the Crohn's disease, has been tried on different medication including mercaptopurine, Remicade and other immune modulating treatment. Her due to the patient since she had her last abdominal surgery, she's always had diarrhea. Under good day she would have one bowel movement, and the most would be 6 times a day and could vary from soft liquidy. She would be taking Imodium or Lomotil to control the diarrhea. More recently she has been having more problem, so the patient was started on Imuran about a month ago. She has had some control of her GI symptoms. About a week ago she started having fever and chills. This was not accompanied by any other symptoms. She denies any respiratory complaints, no sore throat, no swollen gland. She has not had any rash. She has no urinary complaint. She's been having some body aches and this is more according to the patient related to her getting the chills when she has the high fevers. Has not had any joint swelling or joint pains. No recent travel. No exposure to pets. She lives with her 4-year-old child and were both not having any symptomatology. Since admission patient has had fevers up to 102. She feels fine otherwise if she doesn't have the fever. Her WBC is normal with mostly neutrophils. Her LFTs are mildly elevated. Urinalysis is unremarkable. Chest x-ray is okay. Cultures have been negative. Sedimentation rate is pending. MRCP and HIDA scan are okay. Cloud screen is negative. Patient has not been on any antibiotics. Infectious disease consultation has been requested to evaluate the patient with fever of unknown origin. Review of Systems Constitutional: COMPLAINS OF: Fatigue, Fever, Chills, Night Sweats Eyes: DENIES: Eye pain Ears, nose, mouth, throat: DENIES: Nasal discharge, Oral lesions, Throat pain, Ear Pain, Running Nose, Sinus Pain, Toothache, Odynophagia Respiratory: DENIES: Cough, Sputum production, Shortness of breath Cardiovascular: DENIES: Chest pain, Palpitations, Syncope, Dyspnea on Exertion , Lower Extremity Edema Gastrointestinal: COMPLAINS OF: Diarrhea, Nausea, Vomiting, DENIES: Abdominal pain, Difficulty Swallowing Genitourinary: DENIES: Urinary frequency, Urgency, Hematuria, Dysuria Musculoskeletal: COMPLAINS OF: Joint pain, Muscle aches, DENIES: Joint Swelling Integumentary: DENIES: Rash, Nail changes Hematologic/lymphatic: DENIES: Lymphadenopathy Immunologic/allergic: DENIES: Eczema, Urticaria Neurologic: DENIES: Headache, Localized weakness Psychiatric: DENIES: Hallucinations Past Family Social History Allergies: Coded Allergies: codeine (Unverified Allergy, Severe, HIVES AND SHORTNESS OF BREATH, ) latex (Unverified Allergy, Severe, RASH AND SWELLING, 11/08/17) levofloxacin (Unverified Adverse Reaction, Severe, HOURSE THROAT AND SOB, 11/08/17) Past Medical History TIA after Epogen Gastroparesis Anxiety/depression Crohn's disease Past Surgical History July 2017 repeat low transverse section, lysis of adhesions September 2016 Explore lap, lysis of adhesion, resection of small bowel and colon , formation of an ileocolostomy, and reversal of the ileostomy 11/2015 Exp lap, resection of terminal ileum and ascending colon, formation of an ileostomy 11/2015 RSO for ovariand and tubal abscess related to Crohns C section x 2 Thyroidectomy 2008 Breast augmentation 2008 ORIF right ankle Active Ordered Medications Current Medications Medications (Trade) Dose Ordered Sig/Irving Route Start Time Stop Time Status Last Admin (NS Flush) 2 ml UNSCH PRN IV FLUSH 11/08/17 21:45 (NS Flush) 2 ml BID IV FLUSH 11/09/17 09:00 11/10/17 08:32 (Tylenol) 650 mg Q4H PRN PO 11/08/17 21:45 11/10/17 06:05 (Zofran Inj) 4 mg Q6H PRN IVP 11/08/17 21:45 (Restoril) 15 mg HS PRN PO 11/08/17 21:45 (Narcan Inj) 0.4 mg UNSCH PRN IV PUSH 11/08/17 21:45 (Milk Of Magnesia Liq) 30 ml Q12HR PRN PO 11/09/17 09:00 (Xanax) 0.5 mg Q6H PRN PO 11/08/17 22:00 (Synthroid) 150 mcg DAILY@0600 PO 11/09/17 06:00 11/10/17 06:05 (Protonix) 40 mg DAILY PO 11/09/17 09:00 11/10/17 08:32 (Actigall) 300 mg Q12HR PO 11/10/17 21:00 Family History paternal grandfather had colon CA maternal grandmother also had colon CA Social History 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 SKIN: Warm and dry. No generalized rash, no ecchymoses and no evidence of embolic lesions. HEAD: Atraumatic. Normocephalic. No temporal wasting, or tenderness. EYES: [place] conjunctiva. No petechia or hemorrhage. Pupils equal, round and reactive to light. Extraocular movements full and intact. No scleral icterus. No injection or drainage. EARS, NOSE AND THROAT: Nose without bleeding or purulent nasal discharge. No sinus tenderness. Mucous membranes pink and moist. No oral lesions noted. No exudate. No oral thrush. NECK: Trachea midline. Supple and not tender, no meningeal signs. No enlarged LN CARDIOVASCULAR: Regular rate and rhythm. No loud murmur, no rubs or gallops heard RESPIRATORY: Clear to auscultation. Breath sounds equal bilaterally. No rales , wheezing or rhonchi ABDOMEN: Soft, non-tender, nondistended. Bowel sounds present and normoactive. No guarding. No rebound. No organomegaly. Scars C/W surgeries EXTREMITIES: No clubbing, cyanosis, or edema. No joint effusion, has good ROM. No calf tenderness. Well perfused and warm. No embolic lesions NEUROLOGICAL: Awake and alert. Cranial nerves grossly intact. Motor grossly within normal limits. PSYCHIATRIC: Normal affect, calm and cooperative. LINE: No evidence of infection Laboratory Laboratory Tests Test 11/10/17 09:35 11/10/17 09:50 11/10/17 14:58 White Blood Count 5.4 Red Blood Count 4.17 Hemoglobin 10.6 Hematocrit 32.4 Mean Corpuscular Volume 77.6 Mean Corpuscular Hemoglobin 25.5 Mean Corpuscular Hemoglobin Concent 32.9 Red Cell Distribution Width 16.8 Platelet Count 178 Mean Platelet Volume 7.7 Neutrophils (%) (Auto) 34.8 Lymphocytes (%) (Auto) 55.2 Monocytes (%) (Auto) 9.3 Eosinophils (%) (Auto) 0.3 Basophils (%) (Auto) 0.4 Neutrophils # (Auto) 1.9 Lymphocytes # (Auto) 3.0 Monocytes # (Auto) 0.5 Eosinophils # (Auto) 0.0 Basophils # (Auto) 0.0 CBC Comment AUTO DIFF Differential Total Cells Counted 100 Neutrophils % (Manual) 41 Band Neutrophils % 13 Lymphocytes % 40 Monocytes % 4 Eosinophils % 2 Neutrophils # (Manual) 2.9 Differential Comment FINAL DIFF MANUAL Platelet Estimate NORMAL Platelet Morphology Comment NORMAL Blood Urea Nitrogen 7 Creatinine 0.95 Random Glucose 83 Total Protein 6.1 Albumin 2.2 Calcium Level 7.9 Alkaline Phosphatase 631 Aspartate Amino Transf (AST/SGOT) 58 Alanine Aminotransferase (ALT/SGPT) 51 Total Bilirubin 0.3 Sodium Level 139 Potassium Level 3.5 Chloride Level 107 Carbon Dioxide Level 24.6 Anion Gap 7 Estimat Glomerular Filtration Rate 68 Monoscreen NEG Date/Time Source Procedure Growth Status 11/08/17 18:20 Blood Peripheral Aerobic Blood Culture - Preliminary NO GROWTH IN 2 DAYS Resulted 11/08/17 18:20 Blood Peripheral Anaerobic Blood Culture - Preliminary NO GROWTH IN 2 DAYS Resulted 11/08/17 18:20 Nasal Washing Influenza Types A,B Antigen (AKOSUA) - Final NEGATIVE FOR FLU A AND B ANTIGEN.... Complete 11/08/17 18:54 Urine Catheterized Urine Urine Culture - Final NO GROWTH IN 48 HOURS. Complete Result Diagram: 11/10/17 0935 11/10/17 0935 Imaging RADIOLOGY STUDIES/FILMS REVIEWED Last Impressions Hepatobiliary Scan Nuclear Medicine 11/10/17 0000 Signed Impressions: Service Date/Time: Friday, November 10, 2017 10:39 - CONCLUSION: 1. No evidence of biliary tract obstruction. 2. Poor ejection fraction of the gallbladder at approximately 10%%. This can be seen with chronic gallbladder disease. Ilan Marie MD Cholangiopancreatography MRI 11/09/17 0000 Signed Impressions: Service Date/Time: Thursday, November 09, 2017 16:11 - CONCLUSION: Hepatosplenomegaly. Focally unremarkable MR and MRCP appearance otherwise Rober Weeks MD Chest X-Ray 11/08/17 1758 Signed Impressions: Service Date/Time: Wednesday, November 08, 2017 18:25 - CONCLUSION: 1. No acute cardiopulmonary findings. Jerad Jerez MD Assessment and Plan Assessment and Plan IMPRESSION Fever, non-localizing, - no change in her crohn's symptoms, better with Imuran - ?due to Imuran - ?infection, ?viral, ?reactivation Crohns Disease, has had multiple SB and colon resection S/P LTCS, and [facility] Jul 2017 RECOMMENDATION Agree with current work-up - has multiple viral testing EBV, hepatitis CMV - TB quantiferon - check resp viral panel - check esr and crp Agree with CT A/P Echo Ct chest if still with fevers, and gallium scan for FUO work-up Follow C/S Hold off Abx Monitor progress I will follow along with you Thank you for this consultation Sylwia Yung MD Nov 10, 2017 16:25
[2017-11-10 16:30] LABS: RHEUMATOID FACTOR SCREEN NEGATIVE (NEGATIVE)
--- NOTE | 2017-11-10 17:52 | RADRPT ---
EXAM DATE/TIME: 11/10/2017 16:58 [place] COMPARISON: CT ABDOMEN & PELVIS W CONTRAST, October 09, 2016, 8:23. INDICATIONS : Fever of unknown origin, history of Crohn's disease. IV CONTRAST: 90 cc Omnipaque 350 (iohexol) IV ORAL CONTRAST: Prescribed oral contrast ingested. RADIATION DOSE: 5.29 CTDIvol (mGy) MEDICAL HISTORY : Cerebrovascular disease. Crohn's disease SURGICAL HISTORY : bowl resection ENCOUNTER: Initial ACUITY: 1 day PAIN SCALE: 4/10 LOCATION: abdomen TECHNIQUE: Volumetric scanning of the abdomen and pelvis was performed. Using automated exposure control and ad justment of the mA and/or kV according to patient size, radiation dose was kept as low as reasonably achievable to obtain optimal diagnostic quality images. DICOM format image data is available electro nically for review and comparison. FINDINGS: LOWER LUNGS: Mild left lower lung atelectasis. Right lung bases clear. LIVER: Homogeneous density without lesion. There is no dilation of the biliary tree. No calcified gallston es. The liver measures 24.8 cm in length. SPLEEN: Normal size without lesion. PANCREAS: Within normal limits. KIDNEYS: Normal in size and shape. There is no mass, stone or hydronephrosis. ADRENAL GLANDS: Within normal limits. VASCULAR: There is no aortic aneurysm. BOWEL/MESENTERY: The previously noted right lower quadrant ileostomy has been reduced. The small bowel is nondilated. The surgical anastomosis of the small bowel with the right side of the colon appears to be intact. Th ere some mild nonspecific thickening involving the wall of the distal small bowel and terminal ileum. However, this appears to be symmetric. The adjacent mesenteric fat demonstrates no definite inflamma tory changes. There is no evidence of mechanical obstruction.. There is some mild dilatation of the c olon with some stool, fluid and air. There is a small amount of free fluid deep in the cul-de-sac. No free air is seen. ABDOMINAL WALL: Within normal limits. RETROPERITONEUM: There is no lymphadenopathy. BLADDER: No wall thickening or mass. REPRODUCTIVE: There is some kind of device in place at the lower uterine segment. Small amount of free fluid in cul -de-sac. INGUINAL: There is no lymphadenopathy or hernia. MUSCULOSKELETAL: Within normal limits for patient age. CONCLUSION: 1. The surgical anastomosis of small bowel to the right side of the colon appears to be grossly intac t. There is some mild nonspecific thickening involving the wall of distal small bowel and terminal il eum. No mechanical obstruction is seen. 2. There is some mild diffuse dilatation of the colon with air, fluid and stool. 3. Small amount of free fluid in the cul-de-sac. 4. Hepatomegaly. Ilan Marie MD on November 10, 2017 at 17:41 Board Certified Radiologist. This report was verified electronically.
[2017-11-10 21:47] VITALS: TEMP 98.1
[2017-11-10] MEDS: URSODIOL 300 MG CAP PO SCH (21:47)
[2017-11-10 23:45] VITALS: BP 106/63; PULSE 83; RESP 18; TEMP 98.9; O2SAT 95
[2017-11-11] MEDS: ACETAMINOPHEN 325 MG TAB PO PRN ×2 (04:40→20:28)
[2017-11-11] MEDS: LEVOTHYROXINE SODIUM 150 MCG TAB PO SCH (04:40)
[2017-11-11] MEDS: URSODIOL 300 MG CAP PO SCH ×2 (08:32→20:27)
[2017-11-11] MEDS: SODIUM CHLORIDE 0.9% FLUSH 10 ML FLUSH IV FLUSH SCH ×2 (08:32→20:27)
[2017-11-11] MEDS: PANTOPRAZOLE SOD 40 MG DELAYED RELEASE TAB PO SCH (08:32)
[2017-11-11 09:47] VITALS: BP 120/80; PULSE 74; RESP 18; TEMP 98.4; O2SAT 97
[2017-11-11 10:07] LABS: HEMATOCRIT 32.9 % (35.0-46.0); HEMOGLOBIN 10.9 GM/DL (11.6-15.3); MEAN CELL VOLUME 77.2 FL (80.0-100.0); MEAN CORPUSCULAR HEMOGLOBIN 25.7 PG (27.0-34.0); MEAN CORPUSCULAR HGB CONC 33.3 % (32.0-36.0); PLATELET COUNT 217 TH/MM3 (150-450); RED BLOOD COUNT 4.26 MIL/MM3 (4.00-5.30); RED CELL DISTRIBUTION WIDTH 17.1 % (11.6-17.2); WHITE BLOOD COUNT 6.8 TH/MM3 (4.0-11.0)
[2017-11-11 10:28] LABS: ALBUMIN 2.3 GM/DL (3.4-5.0); BICARBONATE 24.9 MEQ/L (21.0-32.0); BLOOD UREA NITROGEN 8 MG/DL (7-18); CALCIUM 8.2 MG/DL (8.5-10.1); CHLORIDE 105 MEQ/L (98-107); GLOMERULAR FILTRATION RATE 73 ML/MIN (>89); GLUCOSE,RANDOM 91 MG/DL (74-106); SODIUM (NA) 141 MEQ/L (136-145)
[2017-11-11 10:30] LABS: ALT (GPT) 56 U/L (10-53); AST (GOT) 81 U/L (15-37)
[2017-11-11 10:39] LABS: ALKALINE PHOSPHATASE 659 U/L (45-117); TOTAL BILIRUBIN ADULT 0.3 MG/DL (0.2-1.0); TOTAL PROTEIN 6.2 GM/DL (6.4-8.2)
--- NOTE | 2017-11-11 11:27 | HHI.PR ---
Subjective Remarks Pt reports that she spiked another fever early this morning but there is no documented fever recorded since yesterday afternoon at 1500 She had 3 loose/watery stools this morning but specimen was not collected for stool studies No new complaints Objective Vitals Vital Signs Date Time Temp Pulse Resp B/P (MAP) Pulse Ox O2 Delivery O2 Flow Rate FiO2 11/11/17 09:47 98.4 74 18 120/80 (93) 97 11/10/17 23:45 98.9 83 18 106/63 (77) 95 11/10/17 21:47 98.1 11/10/17 15:09 100.0 98 20 109/68 (82) 97 Result Diagram: 11/11/17 0830 11/11/17 0830 Other Results Laboratory Tests Test 11/10/17 09:35 11/10/17 09:50 11/10/17 14:58 11/11/17 08:30 White Blood Count 5.4 TH/MM3 6.8 TH/MM3 Red Blood Count 4.17 MIL/MM3 4.26 MIL/MM3 Hemoglobin 10.6 GM/DL 10.9 GM/DL Hematocrit 32.4 % 32.9 % Mean Corpuscular Volume 77.6 FL 77.2 FL Mean Corpuscular Hemoglobin 25.5 PG 25.7 PG Mean Corpuscular Hemoglobin Concent 32.9 % 33.3 % Red Cell Distribution Width 16.8 % 17.1 % Platelet Count 178 TH/MM3 217 TH/MM3 Mean Platelet Volume 7.7 FL 8.0 FL Neutrophils (%) (Auto) 34.8 % Lymphocytes (%) (Auto) 55.2 % Monocytes (%) (Auto) 9.3 % Eosinophils (%) (Auto) 0.3 % Basophils (%) (Auto) 0.4 % Neutrophils # (Auto) 1.9 TH/MM3 Lymphocytes # (Auto) 3.0 TH/MM3 Monocytes # (Auto) 0.5 TH/MM3 Eosinophils # (Auto) 0.0 TH/MM3 Basophils # (Auto) 0.0 TH/MM3 CBC Comment AUTO DIFF AUTO DIFF Differential Total Cells Counted 100 Neutrophils % (Manual) 41 % Band Neutrophils % 13 % Lymphocytes % 40 % Monocytes % 4 % Eosinophils % 2 % Neutrophils # (Manual) 2.9 TH/MM3 Differential Comment FINAL DIFF MANUAL Platelet Estimate NORMAL Platelet Morphology Comment NORMAL Blood Urea Nitrogen 7 MG/DL 8 MG/DL Creatinine 0.95 MG/DL 0.90 MG/DL Random Glucose 83 MG/DL 91 MG/DL Total Protein 6.1 GM/DL 6.2 GM/DL Albumin 2.2 GM/DL 2.3 GM/DL Calcium Level 7.9 MG/DL 8.2 MG/DL Alkaline Phosphatase 631 U/L 659 U/L Aspartate Amino Transf (AST/SGOT) 58 U/L 81 U/L Alanine Aminotransferase (ALT/SGPT) 51 U/L 56 U/L Total Bilirubin 0.3 MG/DL 0.3 MG/DL Sodium Level 139 MEQ/L 141 MEQ/L Potassium Level 3.5 MEQ/L 3.1 MEQ/L Chloride Level 107 MEQ/L 105 MEQ/L Carbon Dioxide Level 24.6 MEQ/L 24.9 MEQ/L Anion Gap 7 MEQ/L 11 MEQ/L Estimat Glomerular Filtration Rate 68 ML/MIN 73 ML/MIN Monoscreen NEG Erythrocyte Sedimentation Rate 34 mm/hr Gamma Glutamyl Transpeptidase 248 U/L Rheumatoid Factor Screen NEGATIVE Rheumatoid Factor Titer IU/ML C-Reactive Protein 3.50 MG/DL Imaging Last Impressions Hepatobiliary Scan Nuclear Medicine 11/10/17 0000 Signed Impressions: Service Date/Time: Friday, November 10, 2017 10:39 - CONCLUSION: 1. No evidence of biliary tract obstruction. 2. Poor ejection fraction of the gallbladder at approximately 10%%. This can be seen with chronic gallbladder disease. Ilan Marie MD Abdomen/Pelvis CT 11/10/17 0000 Signed Impressions: Service Date/Time: Friday, November 10, 2017 16:58 - CONCLUSION: 1. The surgical anastomosis of small bowel to the right side of the colon appears to be grossly intact. There is some mild nonspecific thickening involving the wall of distal small bowel and terminal ileum. No mechanical obstruction is seen. 2. There is some mild diffuse dilatation of the colon with air, fluid and stool. 3. Small amount of free fluid in the cul-de-sac. 4. Hepatomegaly. Ilan Marie MD Cholangiopancreatography MRI 11/09/17 0000 Signed Impressions: Service Date/Time: Thursday, November 09, 2017 16:11 - CONCLUSION: Hepatosplenomegaly. Focally unremarkable MR and MRCP appearance otherwise Rober Weeks MD Chest X-Ray [id number]/[id number] Signed Impressions: Service Date/Time: Wednesday, November 08, 2017 18:25 - CONCLUSION: 1. No acute cardiopulmonary findings. Jerad Jerez MD Last Impressions Chest X-Ray [id number] Signed Impressions: Service Date/Time: Wednesday, November 08, 2017 18:25 - CONCLUSION: 1. No acute cardiopulmonary findings. Jerad Jerez MD Objective Remarks General: NAD, AAOx3 Chest: CTA Cardiac: Regular Abd: +BS, soft ND/NT Ext: No edema A/P Problem List: (1) Fever of unknown origin ICD Codes: R50.9 - Fever, unspecified Status: Acute Plan: Fever of unknown origin Crohn's disease - This is a 32 year old female with a past medical history which includes Crohn' s disease s/p bowel resection with colostomy reversal, TIA after Epogen, gastroparesis and anxiety/depression. - Patient was started on Imuran 4 weeks ago by [facility] due to persistent diarrhea and her Hx of Crohn's. - Patient presented to the ER with c/o fever x 7 days. Her main complaint is the fever with body aches and chills. Blood work was done which shows elevated CRP and elevated liver function tests. - Patient denies any abdominal pain, nausea/vomiting, diarrhea, dysuria, increased urinary frequency, cough or chest congestion. - Labs on admission WBC 4.6 - UA showed trace leucocyte esterase - Culture with no growth in 48 hours - CXR (318): No acute cardiopulmonary disease - Blood cultures with NGTD - Influenza A&B negative - Imuran on hold - GI following. - ID following - Pt continues to have fevers, cause unclear. Possibly viral etiology, viral testing is pending (EBV, HSV, CMV). Viral hepatitis is negative. Hep B DNA quant is pending. [place] screen neg - TB quantiferon and resp viral panel ordered - CT Abd/pelvis (11/10) --> The surgical anastomosis of small bowel to the right side of the colon appears to be grossly intact. There is some mild nonspecific thickening involving the wall of distal small bowel and terminal ileum. No mechanical obstruction is seen. There is some mild diffuse dilatation of the colon with air, fluid and stool. Small amount of free fluid in the cul-de-sac. Hepatomegaly. - 2D echo is pending. - Stool studies are pending. - Supportive care Elevated Alkaline phosphorus Elevated AST Elevated ALT - GI following. - Possibly related to Imuran - Hepatitis profile nonreactive, [place] screen pending, Mitochondrial pending, smooth muscle negative, [id number] pending - HIDA scan and MRCP negative for any obstructive process. HIDA noted poor ejection fraction of the gallbladder at approximately 10% Anxiety - Continue home alprazolam Hypothyroidism - Continue home Synthroid GI prophylaxis Protonix daily DVT prophylaxis with SCDs (2) Crohns disease ICD Codes: K50.90 - Crohn's disease, unspecified, without complications Status: Chronic (3) Anxiety ICD Codes: F41.9 - Anxiety disorder, unspecified Status: Acute (4) Elevated alkaline phosphatase level ICD Codes: R74.8 - Abnormal levels of other serum enzymes (5) Elevated liver enzymes ICD Codes: R74.8 - Abnormal levels of other serum enzymes Assessment and Plan Patient examined. Assessment and plan formulated with Tita Ochoa PA-C. I agree with the above. fever unknown origin. discussed with GI. ID consulted f/u pending studies. liver enzyme elevation noted. imuran on hold ?viral illness. blood cx ngtd. if c diff neg then resume immodium. pt also wanted her wellchol..defer to GI. Problem Qualifiers (1) Crohns disease: Qualified Codes: K50.919 - Crohn's disease, unspecified, with unspecified complications Graciela Ivy Nov 11, 2017 11:27 Clement Man MD Nov 11, 2017 13:39
[2017-11-11 11:36] LABS: BANDS 8 % (0-6); LYMPHOCYTES 65 % (9-44); METAMYELOCYTES 1 % (0-1); NEUTROPHIL # MANUAL DIFF 2.3 TH/MM3 (1.8-7.7); POLYS (SEG NEUTROPHILS) 25 % (16-70)
[2017-11-11 12:37] VITALS: BP 131/74; PULSE 86; RESP 18; TEMP 97.7; O2SAT 97
--- NOTE | 2017-11-11 14:51 | HHI.IDPN ---
Subjective Subjective Remarks Patient is a 32-year-old female, with history of Crohn's disease, has had multiple abdominal surgeries due to the Crohn's disease, has been tried on different medication including mercaptopurine, Remicade and other immune modulating treatment. Her due to the patient since she had her last abdominal surgery, she's always had diarrhea. Under good day she would have one bowel movement, and the most would be 6 times a day and could vary from soft liquidy. She would be taking Imodium or Lomotil to control the diarrhea. More recently she has been having more problem, so the patient was started on Imuran about a month ago. She has had some control of her GI symptoms. About a week ago she started having fever and chills. This was not accompanied by any other symptoms. She denies any respiratory complaints, no sore throat, no swollen gland. She has not had any rash. She has no urinary complaint. She's been having some body aches and this is more according to the patient related to her getting the chills when she has the high fevers. Has not had any joint swelling or joint pains. No recent travel. No exposure to pets. She lives with her 4-year-old child and were both not having any symptomatology. Since admission patient has had fevers up to 102. She feels fine otherwise if she doesn't have the fever. Her WBC is normal with mostly neutrophils. Her LFTs are mildly elevated. Urinalysis is unremarkable. Chest x-ray is okay. Cultures have been negative. Sedimentation rate is pending. MRCP and HIDA scan are okay. [place] screen is negative. Patient has not been on any antibiotics. Infectious disease consultation has been requested to evaluate the patient with fever of unknown origin. Notes reviewed patient is resting Temps seems to be trending down Nothing new on C/S C diff negative ESR 36 Crp elevated Not on Abx CT A/P noted Antibiotics Current Medications Medications (Trade) Dose Ordered Sig/Irving Route Start Time Stop Time Status Last Admin (NS Flush) 2 ml UNSCH PRN IV FLUSH 11/08/17 21:45 (NS Flush) 2 ml BID IV FLUSH 11/09/17 09:00 11/11/17 08:32 (Tylenol) 650 mg Q4H PRN PO 11/08/17 21:45 11/11/17 04:40 (Zofran Inj) 4 mg Q6H PRN IVP 11/08/17 21:45 (Restoril) 15 mg HS PRN PO 11/08/17 21:45 (Narcan Inj) 0.4 mg UNSCH PRN IV PUSH 11/08/17 21:45 (Milk Of Magnesia Liq) 30 ml Q12HR PRN PO 11/09/17 09:00 (Xanax) 0.5 mg Q6H PRN PO 11/08/17 22:00 (Synthroid) 150 mcg DAILY@0600 PO 11/09/17 06:00 11/11/17 04:40 (Protonix) 40 mg DAILY PO 11/09/17 09:00 11/11/17 08:32 (Actigall) 300 mg Q12HR PO 11/10/17 21:00 11/11/17 08:32 Lines PIV no evidence of infection Past Medical History TIA after Epogen Gastroparesis Anxiety/depression Crohn's disease Past Surgical History July 2017 repeat low transverse section, lysis of adhesions September 2016 Explore lap, lysis of adhesion, resection of small bowel and colon , formation of an ileocolostomy, and reversal of the ileostomy 11/2015 Exp lap, resection of terminal ileum and ascending colon, formation of an ileostomy 11/2015 RSO for ovariand and tubal abscess related to Crohns C section x 2 Thyroidectomy 2008 Breast augmentation 2008 ORIF right ankle Allergies: Coded Allergies: codeine (Unverified Allergy, Severe, HIVES AND SHORTNESS OF BREATH, ) latex (Unverified Allergy, Severe, RASH AND SWELLING, 11/08/17) levofloxacin (Unverified Adverse Reaction, Severe, HOURSE THROAT AND SOB, 11/08/17) Objective . Vital Signs Date Time Temp Pulse Resp B/P (MAP) Pulse Ox O2 Delivery O2 Flow Rate FiO2 11/11/17 12:37 97.7 86 18 131/74 (93) 97 11/11/17 09:47 98.4 74 18 120/80 (93) 97 11/10/17 23:45 98.9 83 18 106/63 (77) 95 11/10/17 21:47 98.1 11/10/17 15:09 100.0 98 20 109/68 (82) 97 . Laboratory Tests Test 11/10/17 09:35 11/10/17 14:58 11/11/17 08:30 White Blood Count 5.4 TH/MM3 6.8 TH/MM3 Red Blood Count 4.17 MIL/MM3 4.26 MIL/MM3 Hemoglobin 10.6 GM/DL 10.9 GM/DL Hematocrit 32.4 % 32.9 % Mean Corpuscular Volume 77.6 FL 77.2 FL Mean Corpuscular Hemoglobin 25.5 PG 25.7 PG Mean Corpuscular Hemoglobin Concent 32.9 % 33.3 % Red Cell Distribution Width 16.8 % 17.1 % Platelet Count 178 TH/MM3 217 TH/MM3 Mean Platelet Volume 7.7 FL 8.0 FL Neutrophils (%) (Auto) 34.8 % Lymphocytes (%) (Auto) 55.2 % Monocytes (%) (Auto) 9.3 % Eosinophils (%) (Auto) 0.3 % Basophils (%) (Auto) 0.4 % Neutrophils # (Auto) 1.9 TH/MM3 Lymphocytes # (Auto) 3.0 TH/MM3 Monocytes # (Auto) 0.5 TH/MM3 Eosinophils # (Auto) 0.0 TH/MM3 Basophils # (Auto) 0.0 TH/MM3 CBC Comment AUTO DIFF AUTO DIFF Differential Total Cells Counted 100 100 Neutrophils % (Manual) 41 % 25 % Band Neutrophils % 13 % 8 % Lymphocytes % 40 % 65 % Monocytes % 4 % Eosinophils % 2 % 1 % Neutrophils # (Manual) 2.9 TH/MM3 2.3 TH/MM3 Differential Comment FINAL DIFF MANUAL FINAL DIFF MANUAL Platelet Estimate NORMAL NORMAL Platelet Morphology Comment NORMAL NORMAL Erythrocyte Sedimentation Rate 34 mm/hr Metamyelocytes 1 % Atypical Lymphocytes % Laboratory Tests Test 11/10/17 09:35 11/10/17 14:58 11/11/17 08:30 Blood Urea Nitrogen 7 MG/DL 8 MG/DL Creatinine 0.95 MG/DL 0.90 MG/DL Random Glucose 83 MG/DL 91 MG/DL Total Protein 6.1 GM/DL 6.2 GM/DL Albumin 2.2 GM/DL 2.3 GM/DL Calcium Level 7.9 MG/DL 8.2 MG/DL Alkaline Phosphatase 631 U/L 659 U/L Aspartate Amino Transf (AST/SGOT) 58 U/L 81 U/L Alanine Aminotransferase (ALT/SGPT) 51 U/L 56 U/L Total Bilirubin 0.3 MG/DL 0.3 MG/DL Sodium Level 139 MEQ/L 141 MEQ/L Potassium Level 3.5 MEQ/L 3.1 MEQ/L Chloride Level 107 MEQ/L 105 MEQ/L Carbon Dioxide Level 24.6 MEQ/L 24.9 MEQ/L Anion Gap 7 MEQ/L 11 MEQ/L Estimat Glomerular Filtration Rate 68 ML/MIN 73 ML/MIN Gamma Glutamyl Transpeptidase 248 U/L C-Reactive Protein 3.50 MG/DL Microbiology Date/Time Source Procedure Growth Status 11/08/17 18:20 Blood Peripheral Aerobic Blood Culture - Preliminary NO GROWTH IN 3 DAYS Resulted 11/08/17 18:20 Blood Peripheral Anaerobic Blood Culture - Preliminary NO GROWTH IN 3 DAYS Resulted 11/08/17 18:20 Blood Peripheral Aerobic Blood Culture - Preliminary NO GROWTH IN 3 DAYS Resulted 11/08/17 18:20 Blood Peripheral Anaerobic Blood Culture - Preliminary NO GROWTH IN 3 DAYS Resulted 11/11/17 12:22 Stool Stool Cryptosporidium Exam Pending Received 11/11/17 12:22 Stool Stool Giardia Antigen (AKOSUA) Pending Received 11/11/17 12:22 Stool Stool Pending Received 11/11/17 12:22 Stool Stool Rotavirus Antigen - Final NEGATIVE - ROTAVIRUS ANTIGEN IS ABSEN... Complete 11/08/17 18:20 Nasal Washing Influenza Types A,B Antigen (AKOSUA) - Final NEGATIVE FOR FLU A AND B ANTIGEN.... Complete 11/08/17 18:54 Urine Catheterized Urine Urine Culture - Final NO GROWTH IN 48 HOURS. Complete Assessment & Plan Remarks IMPRESSION Fever, non-localizing, - no change in her crohn's symptoms, better with Imuran - ?due to Imuran - ?infection, ?viral, ?reactivation Crohns Disease, has had multiple SB and colon resection S/P LTCS, and [facility] Jul 2017 RECOMMENDATION Agree with current work-up - has multiple viral testing EBV, hepatitis CMV - TB quantiferon - check resp viral panel - check esr and crp Stool studies pending Echo CT chest if still with fevers, and gallium scan for FUO work-up Follow C/S Hold off Abx Monitor progress I will be off November 12- Other ID covering in my absence Sylwia Yung MD Nov 11, 2017 14:51
--- NOTE | 2017-11-11 15:35 | HHI.GIFU ---
Subjective Remarks sleeping, but arouses to verbal stimuli anxious over not getting her Welchol and Lomotil. No fever today Diarrhea today. started at 0400, Objective Vitals I&O Vital Signs Date Time Temp Pulse Resp B/P (MAP) Pulse Ox O2 Delivery O2 Flow Rate FiO2 11/11/17 12:37 97.7 86 18 131/74 (93) 97 11/11/17 09:47 98.4 74 18 120/80 (93) 97 11/10/17 23:45 98.9 83 18 106/63 (77) 95 11/10/17 21:47 98.1 Laboratory Laboratory Tests Test 11/11/17 08:30 11/11/17 12:22 White Blood Count 6.8 Red Blood Count 4.26 Hemoglobin 10.9 Hematocrit 32.9 Mean Corpuscular Volume 77.2 Mean Corpuscular Hemoglobin 25.7 Mean Corpuscular Hemoglobin Concent 33.3 Red Cell Distribution Width 17.1 Platelet Count 217 Mean Platelet Volume 8.0 CBC Comment AUTO DIFF Differential Total Cells Counted 100 Neutrophils % (Manual) 25 Band Neutrophils % 8 Lymphocytes % 65 Eosinophils % 1 Neutrophils # (Manual) 2.3 Metamyelocytes 1 Differential Comment FINAL DIFF MANUAL Atypical Lymphocytes Platelet Estimate NORMAL Platelet Morphology Comment NORMAL Blood Urea Nitrogen 8 Creatinine 0.90 Random Glucose 91 Total Protein 6.2 Albumin 2.3 Calcium Level 8.2 Alkaline Phosphatase 659 Aspartate Amino Transf (AST/SGOT) 81 Alanine Aminotransferase (ALT/SGPT) 56 Total Bilirubin 0.3 Sodium Level 141 Potassium Level 3.1 Chloride Level 105 Carbon Dioxide Level 24.9 Anion Gap 11 Estimat Glomerular Filtration Rate 73 C-Reactive Protein 3.50 Stool C. difficile Toxin (PCR) NEGATIVE Stl C. difficile Toxin Epiderm 027 PRESUMPTIVE NEGATIVE Date/Time Source Procedure Growth Status 11/08/17 18:20 Blood Peripheral Aerobic Blood Culture - Preliminary NO GROWTH IN 3 DAYS Resulted 11/08/17 18:20 Blood Peripheral Anaerobic Blood Culture - Preliminary NO GROWTH IN 3 DAYS Resulted 11/11/17 12:22 Stool Stool Cryptosporidium Exam Pending Received 11/11/17 12:22 Stool Stool Giardia Antigen (AKOSAU) Pending Received 11/08/17 18:20 Nasal Washing Influenza Types A,B Antigen (AKOSUA) - Final NEGATIVE FOR FLU A AND B ANTIGEN.... Complete 11/08/17 18:54 Urine Catheterized Urine Urine Culture - Final NO GROWTH IN 48 HOURS. Complete Imaging Last Impressions Hepatobiliary Scan Nuclear Medicine 11/10/17 0000 Signed Impressions: Service Date/Time: Friday, November 10, 2017 10:39 - CONCLUSION: 1. No evidence of biliary tract obstruction. 2. Poor ejection fraction of the gallbladder at approximately 10%%. This can be seen with chronic gallbladder disease. Ilan Marie MD Abdomen/Pelvis CT 11/10/17 0000 Signed Impressions: Service Date/Time: Friday, November 10, 2017 16:58 - CONCLUSION: 1. The surgical anastomosis of small bowel to the right side of the colon appears to be grossly intact. There is some mild nonspecific thickening involving the wall of distal small bowel and terminal ileum. No mechanical obstruction is seen. 2. There is some mild diffuse dilatation of the colon with air, fluid and stool. 3. Small amount of free fluid in the cul-de-sac. 4. Hepatomegaly. Ilan Marie MD Cholangiopancreatography MRI 11/09/17 0000 Signed Impressions: Service Date/Time: Thursday, November 09, 2017 16:11 - CONCLUSION: Hepatosplenomegaly. Focally unremarkable MR and MRCP appearance otherwise Rober Weeks MD Chest X-Ray 11/08/17 1758 Signed Impressions: Service Date/Time: Wednesday, November 08, 2017 18:25 - CONCLUSION: 1. No acute cardiopulmonary findings. Jerad Jerez MD Physical Exam HEENT: PERRLA; normocephalic; atraumatic; no jaundice. CHEST: clear without rhonchi CARDIAC: regular ABDOMEN: flat, Soft, nondistended, nontender, bowel sounds are present in all four quadrants. EXTREMITIES: No clubbing, cyanosis, or edema. SKIN: pale, Normal; no rash; no jaundice. SILVER CLEANER: No focal deficits; alert and oriented times three., mild anxiety Assessment and Plan Plan ASSESSMENT - elevated LFTs - have been trending up since 2016 but significant increase of late. ?DILI started imuran 1 m ago no other sx - crohn's s/p colostomy reversal 11/10/17 - still febrile. MRCP noted hepatosplenomegaly. HIDA pending. hepatitis panel neg. mild decrease LFTs 11/11/2017, HIDA EF 10%, which could be chronic GB disease. No Obstruction Abdominal CT, Hx Crohns , Air, fluid , stool Dilatation. No fever today. Complaints of Diarrhea without her routine welchol and Imodium, EVB pending, PLAN - Added Imodium - monoscreen pending - monitor LFTs, labs - hold imuran - BETH - further recs to follow -Supportive care - Monitor I&O, diarrhea pt seen by myself and Dr Keene and this note is on her behalf Linda Swartz Nov 11, 2017 15:35
[2017-11-11] MEDS ORDERED: LOPERAMIDE HCL 2 MG CAP PO PRN (15:45)
--- NOTE | 2017-11-11 16:14 | HHI.GIFU ---
Subjective Remarks Pt resting in bed Reports occasional nausea, which she states is normal of her gastroparesis Denies vomiting, abdominal pain Continued diarrhea, worse today, states it is because she has been off Welchol and Imodium since being hospitalized States would like a shower today (Joslyn Rodriguez) Objective Vitals I&O Vital Signs Date Time Temp Pulse Resp B/P (MAP) Pulse Ox O2 Delivery O2 Flow Rate FiO2 11/11/17 12:37 97.7 86 18 131/74 (93) 97 11/11/17 09:47 98.4 74 18 120/80 (93) 97 11/10/17 23:45 98.9 83 18 106/63 (77) 95 11/10/17 21:47 98.1 Laboratory Laboratory Tests Test 11/11/17 08:30 11/11/17 12:22 White Blood Count 6.8 Red Blood Count 4.26 Hemoglobin 10.9 Hematocrit 32.9 Mean Corpuscular Volume 77.2 Mean Corpuscular Hemoglobin 25.7 Mean Corpuscular Hemoglobin Concent 33.3 Red Cell Distribution Width 17.1 Platelet Count 217 Mean Platelet Volume 8.0 CBC Comment AUTO DIFF Differential Total Cells Counted 100 Neutrophils % (Manual) 25 Band Neutrophils % 8 Lymphocytes % 65 Eosinophils % 1 Neutrophils # (Manual) 2.3 Metamyelocytes 1 Differential Comment FINAL DIFF MANUAL Atypical Lymphocytes Platelet Estimate NORMAL Platelet Morphology Comment NORMAL Blood Urea Nitrogen 8 Creatinine 0.90 Random Glucose 91 Total Protein 6.2 Albumin 2.3 Calcium Level 8.2 Alkaline Phosphatase 659 Aspartate Amino Transf (AST/SGOT) 81 Alanine Aminotransferase (ALT/SGPT) 56 Total Bilirubin 0.3 Sodium Level 141 Potassium Level 3.1 Chloride Level 105 Carbon Dioxide Level 24.9 Anion Gap 11 Estimat Glomerular Filtration Rate 73 C-Reactive Protein 3.50 Stool C. difficile Toxin (PCR) NEGATIVE Stl C. difficile Toxin Epiderm 027 PRESUMPTIVE NEGATIVE Date/Time Source Procedure Growth Status 11/08/17 18:20 Blood Peripheral Aerobic Blood Culture - Preliminary NO GROWTH IN 3 DAYS Resulted 11/08/17 18:20 Blood Peripheral Anaerobic Blood Culture - Preliminary NO GROWTH IN 3 DAYS Resulted 11/11/17 12:22 Stool Stool Cryptosporidium Exam Pending Received 11/11/17 12:22 Stool Stool Giardia Antigen (AKOSUA) Pending Received 11/08/17 18:20 Nasal Washing Influenza Types A,B Antigen (AKOSUA) - Final NEGATIVE FOR FLU A AND B ANTIGEN.... Complete 11/08/17 18:54 Urine Catheterized Urine Urine Culture - Final NO GROWTH IN 48 HOURS. Complete Imaging Last Impressions Hepatobiliary Scan Nuclear Medicine 11/10/17 0000 Signed Impressions: Service Date/Time: Friday, November 10, 2017 10:39 - CONCLUSION: 1. No evidence of biliary tract obstruction. 2. Poor ejection fraction of the gallbladder at approximately 10%%. This can be seen with chronic gallbladder disease. Ilan Marie MD Abdomen/Pelvis CT 11/10/17 0000 Signed Impressions: Service Date/Time: Friday, November 10, 2017 16:58 - CONCLUSION: 1. The surgical anastomosis of small bowel to the right side of the colon appears to be grossly intact. There is some mild nonspecific thickening involving the wall of distal small bowel and terminal ileum. No mechanical obstruction is seen. 2. There is some mild diffuse dilatation of the colon with air, fluid and stool. 3. Small amount of free fluid in the cul-de-sac. 4. Hepatomegaly. Ilan Marie MD Cholangiopancreatography MRI 11/09/17 0000 Signed Impressions: Service Date/Time: Thursday, November 09, 2017 16:11 - CONCLUSION: Hepatosplenomegaly. Focally unremarkable MR and MRCP appearance otherwise Rober Weeks MD Chest X-Ray 11/08/17 1758 Signed Impressions: Service Date/Time: Wednesday, November 08, 2017 18:25 - CONCLUSION: 1. No acute cardiopulmonary findings. Jerad Jreez MD Physical Exam HEENT: Normocephalic; atraumatic CHEST: Even/unlabored CARDIAC: RRR ABDOMEN: flat, Soft, nondistended, nontender, bowel sounds active EXTREMITIES: No clubbing, cyanosis, or edema. SKIN: Normal; no rash; no jaundice. LEARNING SUPPORT ASSISTANT: No focal deficits; alert and oriented times three. (Joslyn Rodriguez) Assessment and Plan Plan ASSESSMENT - elevated LFTs - have been trending up since 2016 but significant increase of late. ?DILI started imuran 1 m ago no other sx - crohn's s/p colostomy reversal 11/10/17 - still febrile. MRCP noted hepatosplenomegaly. HIDA pending. hepatitis panel neg. mild decrease LFTs HIDA scan --> No evidence of biliary tract obstruction. Poor EF of gallbladder at approx 10%. Can be seen with chronic gallbladder disease MRCP --> Hepatosplenomegaly. Focally unremarkable MR and MRCP otherwise. (11/11) --> GI symptoms today: Continued diarrhea and occasional nausea, denies emesis. Tolerating PO Transaminitis- LFTs increased today. Alk phos iso-enzymes pending. GGT-58. CMV, herpes, [place], EBV pending. On Ursodiol. Crohns- Pt reports increase in diarrhea since being admitted because she has been off Welchol and Imodium which she normally takes at home. Has also been off of Imuran because of fevers. C. diff negative and rotavirus. Stool culture and ova and parasite pending. H. Pylori pending. CT abdomen and pelvis --> Surgical anastomosis of small bowel to the right side of the colon appears to be grossly intact. Some mild nonspecific thickening involving the wall of distal small bowel and terminal ileum. No mechanical obstruction. Small diffuse dilatation of the colon with air, fluid and stool. Small amount of free fluid in the cul-de-sac. Hepatomegaly. Anemia- microcytic, hypochromic- stable H/H, Iron low, % sat low Gastroparesis- Takes Reglan PRN at home for nausea, pt complaining of intermittent nausea will add to current regimen PLAN - EBV, Bladen, CMV, herpes virus pending - ASMA pending - Alk phos iso enzymes pending - Ceruloplasmin pending - Enteric pathogens and ova and parasite stool pending - H Pylori stool antigen pending - Monitor LFTs - Cholestyramine - Imuran on hold - TB pending - Start Reglan PRN nausea - Consider liver biopsy if no improvement - ID evaluation based on findings of above - Further recommendations based on clinical course and results of above Pt has been seen and examined by myself and Dr. Keene and this note is written on her behalf (Joslyn Rodriguez) Physician Comments seen, examined agree with above await echocardiogram (Antonia Keene MD) Joslyn Rodriguez Nov 11, 2017 16:14 Antonia Keene MD Nov 11, 2017 18:10
[2017-11-11 16:58] VITALS: BP 132/87; PULSE 85; RESP 18; TEMP 100.1; O2SAT 98
--- NOTE | 2017-11-11 19:37 | ECHRPT ---
Indication: Fever CONCLUSIONS The left ventricular systolic function is normal with an estimated ejection fraction in the range of 60-65% Normal left ventricular size. Wall thickness is normal. No regional wall motion abnormalities are present. BP: 109 / 68 HR: 98 Rhythm: Sinus MEASUREMENTS (Male / Female) Normal Values Technical Quality:Fair 2D ECHO LV Diastolic Diameter PLAX 4.6 cm 4.2 - 5.9 / 3.9 - 5.3 cm LV Systolic Diameter PLAX 3.2 cm IVS Diastolic Thickness 0.8 cm 0.6 - 1.0 / 0.6 - 0.9 cm LVPW Diastolic Thickness 0.8 cm 0.6 - 1.0 / 0.6 - 0.9 cm LV Relative Wall Thickness 0.3 RV Internal Dim ED PLAX 2.6 cm LVOT Diameter 2.1 cm LA Systolic Diameter LX 3.0 cm 3.0 - 4.0 / 2.7 - 3.8 cm M-MODE Aortic Root Diameter MM 2.4 cm LA Systolic Diameter MM 3.2 cm LA Ao Ratio MM 1.3 AV Cusp Separation MM 2.0 cm DOPPLER AV Peak Velocity 150.0 cm/s AV Peak Gradient 9.0 mmHg LVOT Peak Velocity 104.0 cm/s LVOT Peak Gradient 4.3 mmHg AV Area Cont Eq pk 2.4 cm MV Area PHT 2.7 cm Mitral E Point Velocity 76.6 cm/s Mitral A Point Velocity 56.7 cm/s Mitral E to A Ratio 1.4 LV E' Lateral Velocity 17.0 cm/s Mitral E to LV E' Lateral Ratio 4.5 LV E' Septal Velocity 11.7 cm/s Mitral E to LV E' Septal Ratio 6.5 FINDINGS LEFT VENTRICLE The left ventricular systolic function is normal with an estimated ejection fraction in the range of 60-65%. Normal left ventricular size. Wall thickness is normal. No regional wall motion abnormalities are present. RIGHT VENTRICLE Normal right ventricular size and systolic function. LEFT ATRIUM The left atrial size is normal. RIGHT ATRIUM The right atrial size is normal. ATRIAL SEPTUM Normal atrial septal thickness without atrial level shunting by limited color doppler interrogation. AORTA The aortic root and proximal ascending aorta are normal in size on limited imaging. MITRAL VALVE Structurally normal mitral valve. No mitral valve stenosis or regurgitation. AORTIC VALVE Trileaflet aortic valve. No aortic valve stenosis or regurgitation. TRICUSPID VALVE Structurally normal tricuspid valve. No tricuspid valve stenosis or regurgitation. PULMONARY VALVE Trivial pulmonary valve regurgitation. VESSELS The inferior vena cava is normal in size. PERICARDIUM No pericardial effusion. Joaquina Garcia MD, FACC (Electronically Signed) Final Date:11 November 2017 19:36
[2017-11-11 19:55] VITALS: TEMP 100.5
[2017-11-11] MEDS: METOCLOPRAMIDE HCL 10 MG/2 ML VIAL IV PUSH SCH (20:27)
[2017-11-11] MEDS: CHOLESTYRAMINE 4 GM PACKET PO SCH (20:29)
[2017-11-11 20:33] VITALS: BP 128/71; PULSE 99; RESP 16; TEMP 100.1; O2SAT 97
[2017-11-11 23:35] VITALS: BP 104/58; PULSE 83; RESP 16; TEMP 98; O2SAT 97
[2017-11-12 00:44] LABS: EBV VCA IgM Positive (Negative)
[2017-11-12 03:30] VITALS: BP 104/67; PULSE 71; RESP 16; TEMP 97.6; O2SAT 98
[2017-11-12] MEDS: LEVOTHYROXINE SODIUM 150 MCG TAB PO SCH (05:59)
[2017-11-12] MEDS: METOCLOPRAMIDE HCL 10 MG/2 ML VIAL IV PUSH SCH (06:00)
[2017-11-12 07:50] LABS: ALBUMIN 2.1 GM/DL (3.4-5.0); ALT (GPT) 52 U/L (10-53); AST (GOT) 68 U/L (15-37); BLOOD UREA NITROGEN 11 MG/DL (7-18); CALCIUM 7.8 MG/DL (8.5-10.1); CHLORIDE 107 MEQ/L (98-107); CREATININE 0.88 MG/DL (0.50-1.00); GLOMERULAR FILTRATION RATE 74 ML/MIN (>89); GLUCOSE,RANDOM 70 MG/DL (74-106); SODIUM (NA) 141 MEQ/L (136-145)
[2017-11-12 07:52] LABS: ALKALINE PHOSPHATASE 577 U/L (45-117); TOTAL BILIRUBIN ADULT 0.3 MG/DL (0.2-1.0)
[2017-11-12 08:13] VITALS: BP 122/72; PULSE 96; RESP 18; TEMP 100.1; O2SAT 98
[2017-11-12] MEDS: CHOLESTYRAMINE 4 GM PACKET PO SCH (08:28)
[2017-11-12] MEDS: SODIUM CHLORIDE 0.9% FLUSH 10 ML FLUSH IV FLUSH SCH ×2 (08:31→21:39)
[2017-11-12] MEDS: URSODIOL 300 MG CAP PO SCH ×2 (08:32→21:39)
[2017-11-12] MEDS: PANTOPRAZOLE SOD 40 MG DELAYED RELEASE TAB PO SCH (08:32)
[2017-11-12] MEDS ORDERED: METOCLOPRAMIDE HCL 10 MG TAB PO PRN (08:45)
--- NOTE | 2017-11-12 08:49 | HHI.PR ---
Subjective Remarks Pt reports one loose BM this morning She has continued to have fevers Pt reports that the IV Reglan makes her very agitated and feel like she is "coming out of her skin" and would like this stopped. She also does not want the Cholestyramine because it does not work well for her. Objective Vitals Vital Signs Date Time Temp Pulse Resp B/P (MAP) Pulse Ox O2 Delivery O2 Flow Rate FiO2 11/12/17 08:13 100.1 96 18 122/72 (89) 98 11/12/17 03:30 97.6 71 16 104/67 (79) 98 11/11/17 23:35 98.0 83 16 104/58 (73) 97 11/11/17 20:33 100.1 99 16 128/71 (90) 97 11/11/17 19:55 100.5 11/11/17 16:58 100.1 85 18 132/87 (102) 98 11/11/17 12:37 97.7 86 18 131/74 (93) 97 11/11/17 09:47 98.4 74 18 120/80 (93) 97 Result Diagram: 11/11/17 0830 11/12/17 0615 Other Results Laboratory Tests Test 11/10/17 09:35 11/10/17 09:50 11/10/17 14:58 11/11/17 08:30 White Blood Count 5.4 TH/MM3 6.8 TH/MM3 Red Blood Count 4.17 MIL/MM3 4.26 MIL/MM3 Hemoglobin 10.6 GM/DL 10.9 GM/DL Hematocrit 32.4 % 32.9 % Mean Corpuscular Volume 77.6 FL 77.2 FL Mean Corpuscular Hemoglobin 25.5 PG 25.7 PG Mean Corpuscular Hemoglobin Concent 32.9 % 33.3 % Red Cell Distribution Width 16.8 % 17.1 % Platelet Count 178 TH/MM3 217 TH/MM3 Mean Platelet Volume 7.7 FL 8.0 FL Neutrophils (%) (Auto) 34.8 % Lymphocytes (%) (Auto) 55.2 % Monocytes (%) (Auto) 9.3 % Eosinophils (%) (Auto) 0.3 % Basophils (%) (Auto) 0.4 % Neutrophils # (Auto) 1.9 TH/MM3 Lymphocytes # (Auto) 3.0 TH/MM3 Monocytes # (Auto) 0.5 TH/MM3 Eosinophils # (Auto) 0.0 TH/MM3 Basophils # (Auto) 0.0 TH/MM3 CBC Comment AUTO DIFF AUTO DIFF Differential Total Cells Counted 100 100 Neutrophils % (Manual) 41 % 25 % Band Neutrophils % 13 % 8 % Lymphocytes % 40 % 65 % Monocytes % 4 % Eosinophils % 2 % 1 % Neutrophils # (Manual) 2.9 TH/MM3 2.3 TH/MM3 Differential Comment FINAL DIFF MANUAL FINAL DIFF MANUAL Platelet Estimate NORMAL NORMAL Platelet Morphology Comment NORMAL NORMAL Blood Urea Nitrogen 7 MG/DL 8 MG/DL Creatinine 0.95 MG/DL 0.90 MG/DL Random Glucose 83 MG/DL 91 MG/DL Total Protein 6.1 GM/DL 6.2 GM/DL Albumin 2.2 GM/DL 2.3 GM/DL Calcium Level 7.9 MG/DL 8.2 MG/DL Alkaline Phosphatase 631 U/L 659 U/L Aspartate Amino Transf (AST/SGOT) 58 U/L 81 U/L Alanine Aminotransferase (ALT/SGPT) 51 U/L 56 U/L Total Bilirubin 0.3 MG/DL 0.3 MG/DL Sodium Level 139 MEQ/L 141 MEQ/L Potassium Level 3.5 MEQ/L 3.1 MEQ/L Chloride Level 107 MEQ/L 105 MEQ/L Carbon Dioxide Level 24.6 MEQ/L 24.9 MEQ/L Anion Gap 7 MEQ/L 11 MEQ/L Estimat Glomerular Filtration Rate 68 ML/MIN 73 ML/MIN Monoscreen NEG Erythrocyte Sedimentation Rate 34 mm/hr Gamma Glutamyl Transpeptidase 248 U/L Rheumatoid Factor Screen NEGATIVE Rheumatoid Factor Titer IU/ML Otf-Adams Virus Capsid Ag IgG Ab Positive Otf-Adams Virus Capsid Ag IgM Ab Positive Otf-Adams Nuclear Antigen Positive Otf-Adams Virus Interpretation . Metamyelocytes 1 % Atypical Lymphocytes % C-Reactive Protein 3.50 MG/DL Test 11/11/17 12:22 11/12/17 06:15 Stool C. difficile Toxin (PCR) NEGATIVE Stl C. difficile Toxin Epiderm 027 PRESUMPTIVE NEGATIVE Blood Urea Nitrogen 11 MG/DL Creatinine 0.88 MG/DL Random Glucose 70 MG/DL Total Protein 6.0 GM/DL Albumin 2.1 GM/DL Calcium Level 7.8 MG/DL Alkaline Phosphatase 577 U/L Aspartate Amino Transf (AST/SGOT) 68 U/L Alanine Aminotransferase (ALT/SGPT) 52 U/L Total Bilirubin 0.3 MG/DL Sodium Level 141 MEQ/L Potassium Level 3.7 MEQ/L Chloride Level 107 MEQ/L Carbon Dioxide Level 24.0 MEQ/L Anion Gap 10 MEQ/L Estimat Glomerular Filtration Rate 74 ML/MIN Imaging Last Impressions Hepatobiliary Scan Nuclear Medicine 11/10/17 0000 Signed Impressions: Service Date/Time: Friday, November 10, 2017 10:39 - CONCLUSION: 1. No evidence of biliary tract obstruction. 2. Poor ejection fraction of the gallbladder at approximately 10%%. This can be seen with chronic gallbladder disease. Ilan Marie MD Abdomen/Pelvis CT 11/10/17 0000 Signed Impressions: Service Date/Time: Friday, November 10, 2017 16:58 - CONCLUSION: 1. The surgical anastomosis of small bowel to the right side of the colon appears to be grossly intact. There is some mild nonspecific thickening involving the wall of distal small bowel and terminal ileum. No mechanical obstruction is seen. 2. There is some mild diffuse dilatation of the colon with air, fluid and stool. 3. Small amount of free fluid in the cul-de-sac. 4. Hepatomegaly. Ilan Marie MD Cholangiopancreatography MRI 11/09/17 0000 Signed Impressions: Service Date/Time: Thursday, November 09, 2017 16:11 - CONCLUSION: Hepatosplenomegaly. Focally unremarkable MR and MRCP appearance otherwise Rober Weeks MD Chest X-Ray 11/08/[id number] Signed Impressions: Service Date/Time: Wednesday, November 08, 2017 18:25 - CONCLUSION: 1. No acute cardiopulmonary findings. Jerad Jerez MD Last Impressions Chest X-Ray [id number] Signed Impressions: Service Date/Time: Wednesday, November 08, 2017 18:25 - CONCLUSION: 1. No acute cardiopulmonary findings. Jerad Jerez MD Objective Remarks General: NAD, AAOx3 Chest: CTA Cardiac: Regular Abd: +BS, soft ND/NT Ext: No edema A/P Problem List: (1) Fever of unknown origin ICD Codes: R50.9 - Fever, unspecified Status: Acute Plan: Fever of unknown origin Crohn's disease - This is a 32 year old female with a past medical history which includes Crohn' s disease s/p bowel resection with colostomy reversal, TIA after Epogen, gastroparesis and anxiety/depression. - Patient was started on Imuran 4 weeks ago by [facility] due to persistent diarrhea and her Hx of Crohn's. - Patient presented to the ER with c/o fever x 7 days. Her main complaint is the fever with body aches and chills. Blood work was done which shows elevated CRP and elevated liver function tests. - Patient denies any abdominal pain, nausea/vomiting, diarrhea, dysuria, increased urinary frequency, cough or chest congestion. - Labs on admission WBC 4.6 - UA showed trace leucocyte esterase - Culture with no growth in 48 hours - CXR (318): No acute cardiopulmonary disease - Blood cultures with NGTD - Influenza A&B negative - Imuran on hold - GI following. - ID following - Pt continues to have fevers, cause unclear. Possibly crohn's related vs. viral etiology vs. infectious etiology vs. other. Viral testing is pending (EBV , HSV, CMV). Viral hepatitis is negative. Hep B DNA quant is pending. [place] screen neg - TB quantiferon and resp viral panel ordered - CT Abd/pelvis (11/10) --> The surgical anastomosis of small bowel to the right side of the colon appears to be grossly intact. There is some mild nonspecific thickening involving the wall of distal small bowel and terminal ileum. No mechanical obstruction is seen. There is some mild diffuse dilatation of the colon with air, fluid and stool. Small amount of free fluid in the cul-de-sac. Hepatomegaly. - 2D echo )11/11/17) --> Estimated EF 60-65% - Stool studies are pending. - ID recommending Chest CT +/- Gallium scan for persistent fevers, we will order chest CT today - Supportive care Elevated Alkaline phosphorus Elevated AST Elevated ALT - GI following. - Possibly related to Imuran - Hepatitis profile nonreactive, [place] screen negative, Mitochondrial pending, smooth muscle negative, [id number] pending - HIDA scan and MRCP negative for any obstructive process. HIDA noted poor ejection fraction of the gallbladder at approximately 10% Anxiety - Continue home alprazolam Hypothyroidism - Continue home Synthroid GI prophylaxis Protonix daily DVT prophylaxis with SCDs (2) Crohns disease ICD Codes: K50.90 - Crohn's disease, unspecified, without complications Status: Chronic (3) Anxiety ICD Codes: F41.9 - Anxiety disorder, unspecified Status: Acute (4) Elevated alkaline phosphatase level ICD Codes: R74.8 - Abnormal levels of other serum enzymes (5) Elevated liver enzymes ICD Codes: R74.8 - Abnormal levels of other serum enzymes Assessment and Plan Patient examined. Assessment and plan formulated with Tita Ochoa PA-C. I agree with the above. fever unknown origin. discussed with GI. ID consulted f/u pending studies. liver enzyme elevation noted. imuran on hold ?viral illness. blood cx ngtd. if c diff neg then resume immodium. pt also wanted her wellchol..defer to GI. Problem Qualifiers (1) Crohns disease: Qualified Codes: K50.919 - Crohn's disease, unspecified, with unspecified complications Graciela Ivy Nov 12, 2017 08:49
--- NOTE | 2017-11-12 11:55 | HHI.GIFU ---
Subjective Remarks Pt sitting in wheelchair in the hallway Waiting to be taken to CT scan for CT thorax/chest Tolerating PO Continued diarrhea continued intermittent nausea Denies emesis, abdominal pain (Joslyn Rodriguez) Objective Vitals I&O Vital Signs Date Time Temp Pulse Resp B/P (MAP) Pulse Ox O2 Delivery O2 Flow Rate FiO2 11/12/17 08:13 100.1 96 18 122/72 (89) 98 11/12/17 03:30 97.6 71 16 104/67 (79) 98 11/11/17 23:35 98.0 83 16 104/58 (73) 97 11/11/17 20:33 100.1 99 16 128/71 (90) 97 11/11/17 19:55 100.5 11/11/17 16:58 100.1 85 18 132/87 (102) 98 11/11/17 12:37 97.7 86 18 131/74 (93) 97 Laboratory Laboratory Tests Test 11/11/17 12:22 11/12/17 06:15 Stool C. difficile Toxin (PCR) NEGATIVE Stl C. difficile Toxin Epiderm 027 PRESUMPTIVE NEGATIVE Blood Urea Nitrogen 11 Creatinine 0.88 Random Glucose 70 Total Protein 6.0 Albumin 2.1 Calcium Level 7.8 Alkaline Phosphatase 577 Aspartate Amino Transf (AST/SGOT) 68 Alanine Aminotransferase (ALT/SGPT) 52 Total Bilirubin 0.3 Sodium Level 141 Potassium Level 3.7 Chloride Level 107 Carbon Dioxide Level 24.0 Anion Gap 10 Estimat Glomerular Filtration Rate 74 Date/Time Source Procedure Growth Status 11/11/17 19:53 Blood Peripheral Aerobic Blood Culture - Preliminary NO GROWTH IN 1 DAY Resulted 11/11/17 19:53 Blood Peripheral Anaerobic Blood Culture - Preliminary NO GROWTH IN 1 DAY Resulted 11/11/17 12:22 Stool Stool Cryptosporidium Exam - Final NEGATIVE - NO CRYPTOSPORIDIUM ANTIGEN... Complete 11/11/17 12:22 Stool Stool Giardia Antigen (AKOSUA) - Final NEGATIVE - NO GIARDIA ANTIGEN DETECTE... Complete 11/08/17 18:20 Nasal Washing Influenza Types A,B Antigen (AKOSUA) - Final NEGATIVE FOR FLU A AND B ANTIGEN.... Complete 11/08/17 18:54 Urine Catheterized Urine Urine Culture - Final NO GROWTH IN 48 HOURS. Complete Imaging Last Impressions Hepatobiliary Scan Nuclear Medicine 11/10/17 0000 Signed Impressions: Service Date/Time: Friday, November 10, 2017 10:39 - CONCLUSION: 1. No evidence of biliary tract obstruction. 2. Poor ejection fraction of the gallbladder at approximately 10%%. This can be seen with chronic gallbladder disease. Ilan Marie MD Abdomen/Pelvis CT 11/10/17 0000 Signed Impressions: Service Date/Time: Friday, November 10, 2017 16:58 - CONCLUSION: 1. The surgical anastomosis of small bowel to the right side of the colon appears to be grossly intact. There is some mild nonspecific thickening involving the wall of distal small bowel and terminal ileum. No mechanical obstruction is seen. 2. There is some mild diffuse dilatation of the colon with air, fluid and stool. 3. Small amount of free fluid in the cul-de-sac. 4. Hepatomegaly. Ilan Marie MD Cholangiopancreatography MRI 11/09/17 0000 Signed Impressions: Service Date/Time: Thursday, November 09, 2017 16:11 - CONCLUSION: Hepatosplenomegaly. Focally unremarkable MR and MRCP appearance otherwise Rober Weeks MD Chest X-Ray 11/08/17 1758 Signed Impressions: Service Date/Time: Wednesday, November 08, 2017 18:25 - CONCLUSION: 1. No acute cardiopulmonary findings. Jerad Jerez MD Physical Exam HEENT: Normocephalic; atraumatic CHEST: Even/unlabored CARDIAC: RRR ABDOMEN: flat, Soft, nondistended, nontender, bowel sounds active EXTREMITIES: No clubbing, cyanosis, or edema. SKIN: Normal; no rash; no jaundice. CONFLICTS ANALYST: No focal deficits; alert and oriented times three. (Joslyn Rodriguez [facility]) Assessment and Plan Plan ASSESSMENT - elevated LFTs - have been trending up since 2016 but significant increase of late. ?DILI started imuran 1 m ago no other sx - crohn's s/p colostomy reversal 11/10/17 - still febrile. MRCP noted hepatosplenomegaly. HIDA pending. hepatitis panel neg. mild decrease LFTs HIDA scan --> No evidence of biliary tract obstruction. Poor EF of gallbladder at approx 10%. Can be seen with chronic gallbladder disease MRCP --> Hepatosplenomegaly. Focally unremarkable MR and MRCP otherwise. (11/11) --> GI symptoms today: Continued diarrhea and occasional nausea, denies emesis. Tolerating PO Transaminitis- LFTs increased today. Alk phos iso-enzymes pending. GGT-58. CMV, herpes, [place], EBV pending. On Ursodiol. Crohns- Pt reports increase in diarrhea since being admitted because she has been off Welchol and Imodium which she normally takes at home. Has also been off of Imuran because of fevers. C. diff negative and rotavirus. Stool culture and ova and parasite pending. H. Pylori pending. CT abdomen and pelvis --> Surgical anastomosis of small bowel to the right side of the colon appears to be grossly intact. Some mild nonspecific thickening involving the wall of distal small bowel and terminal ileum. No mechanical obstruction. Small diffuse dilatation of the colon with air, fluid and stool. Small amount of free fluid in the cul-de-sac. Hepatomegaly. Anemia- microcytic, hypochromic- stable H/H, Iron low, % sat low Gastroparesis- Takes Reglan PRN at home for nausea, pt complaining of intermittent nausea will add to current regimen (11/12) Continued fevers. Complaints of continued diarrhea, does not like the taste of the Cholestyramine powder. States takes Welchol 625mg PO daily in the morning, spoke to pharmacy, states they have this available. Added to pts current medication regimen. Also complaining of continued intermittent nausea, does not want IV Reglan. LFTs with some improvement today. EBV positive. Rest of liver MARADIAGA still pending. Pt not interested in liver biopsy at this time. Echocardiogram noted. PLAN - CMV, herpes virus pending - Alk phos iso enzymes pending - Ceruloplasmin pending - Enteric pathogens stool pending - H Pylori stool antigen pending - Monitor LFTs - Welchol - Imuran on hold - TB pending - Declining Reglan IV- switched to PO per attending - Declining liver biopsy - ID consult placed - Further recommendations based on clinical course and results of above Pt has been seen and examined by myself and Dr. Keene and this note is written on her behalf (Joslyn Rodriguez) Physician Comments seen, examined ebv -showed either reactivation or active infection-does not entirely explain her symptoms and lft pattern await rest of blood work reluctant to have liver biopsy , will think about it after all work-up done (Antonia Keene MD) Joslyn Rodriguez Nov 12, 2017 11:55 Antonia Keene MD Nov 12, 2017 16:14
[2017-11-12 12:10] VITALS: BP 114/78; PULSE 103; RESP 17; TEMP 98.8; O2SAT 98
--- NOTE | 2017-11-12 12:18 | RADRPT ---
EXAM DATE/TIME: 11/12/2017 11:53 [place] COMPARISON: CHEST SINGLE AP, November 08, 2017, 18:25. INDICATIONS : Persistent fevers RADIATION DOSE: 5.27 CTDIvol (mGy) MEDICAL HISTORY : Crohn's disease. SURGICAL HISTORY : Abdomen for infection ENCOUNTER: Initial ACUITY: 1 day PAIN SCALE: 3/10 LOCATION: chest TECHNIQUE: Volumetric scanning of the chest was performed. Using automated exposure control and adjustment of t he mA and/or kV according to patient size, radiation dose was kept as low as reasonably achievable to obtain optimal diagnostic quality images. DICOM format image data is available electronically for r eview and comparison. Follow-up recommendations for detected pulmonary nodules are based at a minimum on nodule size and pa tient risk factors according to Fleischner Society Guidelines. FINDINGS: LUNGS: There is no consolidation or pneumothorax. No concerning pulmonary nodule is visualized. There is mi ld bibasal atelectasis seen in the posterior lung bases. Otherwise, no acute pulmonary infiltrates ar e demonstrated. PLEURAE: There is no pleural thickening or pleural effusion. MEDIASTINUM: The heart and great vessels demonstrate no acute abnormality. There is no mediastinal or hilar lymph adenopathy. AXILLAE: Within normal limits. No lymphadenopathy. MUSCULOSKELETAL: Within normal limits for patient age. MISCELLANEOUS: The visualized upper abdominal organs demonstrate no acute abnormality. The spleen is mildly prominen t measuring 13.5 cm. There are bilateral breast implants. CONCLUSION: 1. Mild bibasal atelectasis. 2. Otherwise, no focal or acute intrathoracic disease. Ilan Marie MD on November 12, 2017 at 12:14 Board Certified Radiologist. This report was verified electronically.
[2017-11-12] MEDS ORDERED: COLESEVELAM HCL 625 MG TAB PO SCH (13:00)
[2017-11-12 13:53] LABS: MITOCHONDRIAL ABS LESS THAN 20.0 U (<=20.0)
[2017-11-12 16:15] VITALS: BP 117/77; PULSE 98; RESP 17; TEMP 99.4; O2SAT 97
[2017-11-12 17:30] LABS: MITOGEN MINUS NIL RESULT >10.00 IU/mL; NIL RESULT 1.23 IU/mL; QUANTIFERON TB GOLD + RESULT Negative (Negative); TB ANTIGEN MINUS NIL 0.12 IU/mL
--- NOTE | 2017-11-12 17:58 | HHI.IDPN ---
Note Infectious Disease Note ID coverage. Patient is in no distress. Has low-grade fever. Feels achy and notes that she gets sweats. Otf-Adams virus titer IgM positive. IgG also positive. Blood cultures negative. 2D echocardiogram unremarkable Patient is a 32-year-old female, with history of Crohn's disease, has had multiple abdominal surgeries due to the Crohn's disease, has been tried on different medication including mercaptopurine, Remicade and other immune modulating treatment. Her due to the patient since she had her last abdominal surgery, she's always had diarrhea. Under good day she would have one bowel movement, and the most would be 6 times a day and could vary from soft liquidy. She would be taking Imodium or Lomotil to control the diarrhea. More recently she has been having more problem, so the patient was started on Imuran about a month ago. She has had some control of her GI symptoms. About a week ago she started having fever and chills. This was not accompanied by any other symptoms. She denies any respiratory complaints, no sore throat, no swollen gland. She has not had any rash. She has no urinary complaint. She's been having some body aches and this is more according to the patient related to her getting the chills when she has the high fevers. Has not had any joint swelling or joint pains. No recent travel. No exposure to pets. She lives with her 4-year-old child and were both not having any symptomatology. Since admission patient has had fevers up to 102. She feels fine otherwise if she doesn't have the fever. Her WBC is normal with mostly neutrophils. Her LFTs are mildly elevated. Urinalysis is unremarkable. Chest x-ray is okay. Cultures have been negative. MRCP and HIDA scan are okay. [place] screen is negative. Patient has not been on any antibiotics. Infectious disease consultation has been requested to evaluate the patient with fever of unknown origin. Antibiotics Current Medications Medications (Trade) Dose Ordered Sig/Irving Route PRN Reason Start Time Stop Time Status Last Admin Dose Admin Sodium Chloride (NS Flush) 2 ml UNSCH PRN IV FLUSH FLUSH AFTER USING IV ACCESS 11/08/17 21:45 Sodium Chloride (NS Flush) 2 ml BID IV FLUSH 11/09/17 09:00 11/12/17 08:31 Acetaminophen (Tylenol) 650 mg Q4H PRN PO TEMP > 100.4 11/08/17 21:45 11/11/17 20:28 Ondansetron HCl (Zofran Inj) 4 mg Q6H PRN IVP NAUSEA OR VOMITING 11/08/17 21:45 Temazepam (Restoril) 15 mg HS PRN PO INSOMNIA 11/08/17 21:45 Naloxone HCl (Narcan Inj) 0.4 mg UNSCH PRN IV PUSH SEE LABEL COMMENTS 11/08/17 21:45 Magnesium Hydroxide (Milk Of Tawnya Jerez) 30 ml Q12HR PRN PO Mild constipation 11/09/17 09:00 Alprazolam (Xanax) 0.5 mg Q6H PRN PO ANXIETY 11/08/17 22:00 Levothyroxine Sodium (Synthroid) 150 mcg DAILY@0600 PO 11/09/17 06:00 11/12/17 05:59 Pantoprazole Sodium (Protonix) 40 mg DAILY PO 11/09/17 09:00 11/12/17 08:32 Ursodiol (Actigall) 300 mg Q12HR PO 11/10/17 21:00 11/12/17 08:32 Loperamide HCl (Imodium) 2 mg Q4H PRN PO DIARRHEA 11/11/17 15:45 Metoclopramide HCl (Reglan) 10 mg ACHS PRN PO nausea 11/12/17 08:45 Colesevelam HCl (Welchol) 625 mg DAILY PO 11/13/17 09:00 Lines PIV no evidence of infection Past Medical History TIA after Epogen Gastroparesis Anxiety/depression Crohn's disease Past Surgical History July 2017 repeat low transverse section, lysis of adhesions September 2016 Explore lap, lysis of adhesion, resection of small bowel and colon , formation of an ileocolostomy, and reversal of the ileostomy 11/2015 Exp lap, resection of terminal ileum and ascending colon, formation of an ileostomy 11/2015 RSO for ovariand and tubal abscess related to Crohns C section x 2 Thyroidectomy 2008 Breast augmentation 2007 ORIF right ankle Allergies: Coded Allergies: codeine (Unverified Allergy, Severe, HIVES AND SHORTNESS OF BREATH, ) latex (Unverified Allergy, Severe, RASH AND SWELLING, 11/08/17) levofloxacin (Unverified Adverse Reaction, Severe, HOURSE THROAT AND SOB, 11/08/17) Objective. Vital Signs Date Time Temp Pulse Resp B/P (MAP) Pulse Ox O2 Delivery O2 Flow Rate FiO2 11/12/17 16:15 99.4 98 17 117/77 (90) 97 11/12/17 12:10 98.8 103 17 114/78 (90) 98 11/12/17 08:13 100.1 96 18 122/72 (89) 98 11/12/17 03:30 97.6 71 16 104/67 (79) 98 11/11/17 23:35 98.0 83 16 104/58 (73) 97 11/11/17 20:33 100.1 99 16 128/71 (90) 97 11/11/17 19:55 100.5 Laboratory Tests Test 11/11/17 08:30 White Blood Count 6.8 TH/MM3 Red Blood Count 4.26 MIL/MM3 Hemoglobin 10.9 GM/DL Hematocrit 32.9 % Mean Corpuscular Volume 77.2 FL Mean Corpuscular Hemoglobin 25.7 PG Mean Corpuscular Hemoglobin Concent 33.3 % Red Cell Distribution Width 17.1 % Platelet Count 217 TH/MM3 Mean Platelet Volume 8.0 FL CBC Comment AUTO DIFF Differential Total Cells Counted 100 Neutrophils % (Manual) 25 % Band Neutrophils % 8 % Lymphocytes % 65 % Eosinophils % 1 % Neutrophils # (Manual) 2.3 TH/MM3 Metamyelocytes 1 % Differential Comment FINAL DIFF MANUAL Atypical Lymphocytes % Platelet Estimate NORMAL Platelet Morphology Comment NORMAL Laboratory Tests Test 11/11/17 08:30 11/12/17 06:15 Blood Urea Nitrogen 8 MG/DL 11 MG/DL Creatinine 0.90 MG/DL 0.88 MG/DL Random Glucose 91 MG/DL 70 MG/DL Total Protein 6.2 GM/DL 6.0 GM/DL Albumin 2.3 GM/DL 2.1 GM/DL Calcium Level 8.2 MG/DL 7.8 MG/DL Alkaline Phosphatase 659 U/L 577 U/L Aspartate Amino Transf (AST/SGOT) 81 U/L 68 U/L Alanine Aminotransferase (ALT/SGPT) 56 U/L 52 U/L Total Bilirubin 0.3 MG/DL 0.3 MG/DL Sodium Level 141 MEQ/L 141 MEQ/L Potassium Level 3.1 MEQ/L 3.7 MEQ/L Chloride Level 105 MEQ/L 107 MEQ/L Carbon Dioxide Level 24.9 MEQ/L 24.0 MEQ/L Anion Gap 11 MEQ/L 10 MEQ/L Estimat Glomerular Filtration Rate 73 ML/MIN 74 ML/MIN C-Reactive Protein 3.50 MG/DL Microbiology Date/Time Source Procedure Growth Status 11/11/17 19:53 Blood Peripheral Aerobic Blood Culture - Preliminary NO GROWTH IN 1 DAY Resulted 11/11/17 19:53 Blood Peripheral Anaerobic Blood Culture - Preliminary NO GROWTH IN 1 DAY Resulted 11/11/17 12:22 Stool Stool Cryptosporidium Exam - Final NEGATIVE - NO CRYPTOSPORIDIUM ANTIGEN... Complete 11/11/17 12:22 Stool Stool Giardia Antigen (AKOSUA) - Final NEGATIVE - NO GIARDIA ANTIGEN DETECTE... Complete 11/11/17 12:22 Stool Stool - Final NO ENTERIC PATHOGENS DETECTED BY PCR... Complete 11/11/17 12:22 Stool Stool Rotavirus Antigen - Final NEGATIVE - ROTAVIRUS ANTIGEN IS ABSEN... Complete IMAGING: Chest CT 11/12/17 0000 Signed Impressions: Service Date/Time: October 11:53 - CONCLUSION: 1. Mild bibasal atelectasis. 2. Otherwise, no focal or acute intrathoracic disease. Ilan Marie MD Hepatobiliary Scan Nuclear Medicine 11/10/17 0000 Signed Impressions: Service Date/Time: Friday, November 10, 2017 10:39 - CONCLUSION: 1. No evidence of biliary tract obstruction. 2. Poor ejection fraction of the gallbladder at approximately 10%%. This can be seen with chronic gallbladder disease. Ilan Marie MD Abdomen/Pelvis CT 11/10/17 0000 Signed Impressions: Service Date/Time: Friday, November 10, 2017 16:58 - CONCLUSION: 1. The surgical anastomosis of small bowel to the right side of the colon appears to be grossly intact. There is some mild nonspecific thickening involving the wall of distal small bowel and terminal ileum. No mechanical obstruction is seen. 2. There is some mild diffuse dilatation of the colon with air, fluid and stool. 3. Small amount of free fluid in the cul-de-sac. 4. Hepatomegaly. Ilan Marie MD GENERAL: Alert and oriented, no acute distress. HEENT: Pupils reactive to light. Extraocular movements intact. No icterus. Moist oropharynx mucosa. No visible lesions. NECK: Supple without adenopathy. No swelling. LUNGS: Clear to auscultation. HEART: Regular rate and rhythm without murmurs rubs or gallops. ABDOMEN: Soft. Nontender. No palpable masses. EXTREMITIES: No clubbing cyanosis or edema. SKIN: No rash. NEUROLOGIC: No gross focal findings. PSYCH: Calm and cooperative. IMPRESSION Fever, non-localizing, most likely due to Otf-Adams viral infection/ reactivation. - no change in her Crohn's symptoms, better with Imuran - ?due to Imuran - ?infection, ?viral, ?reactivation TB QuantiFERON test negative Cultures negative Crohns Disease, has had multiple SB and colon resection S/P LTCS, and [facility] Jul 2017. RECOMMENDATION Continue to hold off on antibiotics Monitor temperatures. Fever is low-grade. Monitor clinical status. No treatment necessary for the Otf-Adams virus. The fever and other symptoms should resolve on its own. If the temperature continues to remain low grade and no other symptoms recur she can be discharged and monitored as outpatient. Andres Lambert MD Nov 12, 2017 17:58
[2017-11-12 19:53] LABS: CERULOPLASMIN 44 mg/dL (18-53)
[2017-11-12 20:00] VITALS: BP 128/74; PULSE 91; RESP 18; TEMP 100.1; O2SAT 96
[2017-11-13] VITALS: BP 111/70; PULSE 84; RESP 17; TEMP 98.2; O2SAT 96
[2017-11-13 04:00] VITALS: BP 130/85; PULSE 80; RESP 17; TEMP 99; O2SAT 98
[2017-11-13] MEDS: LEVOTHYROXINE SODIUM 150 MCG TAB PO SCH (06:59)
[2017-11-13] MEDS: PANTOPRAZOLE SOD 40 MG DELAYED RELEASE TAB PO SCH (07:57)
[2017-11-13] MEDS: URSODIOL 300 MG CAP PO SCH (07:57)
[2017-11-13] MEDS: SODIUM CHLORIDE 0.9% FLUSH 10 ML FLUSH IV FLUSH SCH (07:58)
[2017-11-13 08:15] VITALS: BP 116/74; PULSE 93; RESP 17; TEMP 98.8; O2SAT 97
[2017-11-13] MEDS ORDERED: COLESEVELAM HCL 625 MG TAB PO SCH (09:00)
[2017-11-13 09:26] LABS: HEMATOCRIT 36.6 % (35.0-46.0); MEAN CELL VOLUME 77.7 FL (80.0-100.0); MEAN CORPUSCULAR HEMOGLOBIN 25.5 PG (27.0-34.0); MEAN CORPUSCULAR HGB CONC 32.8 % (32.0-36.0); MEAN PLATELET VOLUME 8.2 FL (7.0-11.0); PLATELET COUNT 237 TH/MM3 (150-450); RED BLOOD COUNT 4.71 MIL/MM3 (4.00-5.30); WHITE BLOOD COUNT 10.7 TH/MM3 (4.0-11.0)
[2017-11-13 09:59] LABS: ALBUMIN 2.4 GM/DL (3.4-5.0); ALT (GPT) 58 U/L (10-53); BICARBONATE 25.5 MEQ/L (21.0-32.0); BLOOD UREA NITROGEN 12 MG/DL (7-18); CALCIUM 8.3 MG/DL (8.5-10.1); CHLORIDE 105 MEQ/L (98-107); GLUCOSE,RANDOM 71 MG/DL (74-106); MAGNESIUM 1.5 MG/DL (1.5-2.5); SODIUM (NA) 139 MEQ/L (136-145)
[2017-11-13 10:01] LABS: ALKALINE PHOSPHATASE 660 U/L (45-117); AST (GOT) 81 U/L (15-37); CREATININE 0.95 MG/DL (0.50-1.00); GLOMERULAR FILTRATION RATE 68 ML/MIN (>89); TOTAL BILIRUBIN ADULT 0.3 MG/DL (0.2-1.0); TOTAL PROTEIN 6.6 GM/DL (6.4-8.2)
[2017-11-13 12:01] VITALS: BP 106/66; PULSE 105; RESP 17; TEMP 98.6; O2SAT 96
[2017-11-13 12:14] LABS: BANDS 7 % (0-6); LYMPHOCYTES 63 % (9-44); MONOCYTES 11 % (0-8); NEUTROPHIL # MANUAL DIFF 2.8 TH/MM3 (1.8-7.7); POLYS (SEG NEUTROPHILS) 19 % (16-70)
[2017-11-13 12:16] LABS: SMUDGE CELLS PRESENT PRESENT
--- NOTE | 2017-11-13 12:25 | HHI.DCPOC ---
Discharge Care Plan Diagnosis: (1) Fever (2) Acute Otf Adams virus (EBV) infection (3) Elevated liver enzymes (4) Elevated alkaline phosphatase level (5) Crohns disease Goals to Promote Your Health - Followup with PCP, Dr. Reyez, in 1 week, call for an appt - Followup with [facility] in 1-2 weeks, call for an appt - Monitor body temperatures at home Directions to Meet Your Goals Take your medications as prescribed Follow your dietary instruction Follow activity as directed Keep your appointments as scheduled Take your immunizations and boosters as scheduled If your symptoms worsen call your PCP, if no PCP go to Urgent Care Center or Emergency Room Smoking is Dangerous to Your Health. Avoid second hand smoke Call the 24-hour hour crisis hotline for domestic abuse at Graciela Ivy Nov 13, 2017 12:25
--- NOTE | 2017-11-13 12:34 | HHI.DS ---
Discharge Summary Admission Date Nov 11, 2017 at 12:34 Discharge Date: Nov 13, 2017 Admitting Diagnosis FEVER OF UNKNOWN ORIGIN (1) Acute Otf Adams virus (EBV) infection Diagnosis: Principal ICD Codes: B27.00 - Gammaherpesviral mononucleosis without complication Status: Acute (2) Fever of unknown origin Diagnosis: Principal ICD Codes: R50.9 - Fever, unspecified Status: Acute (3) Crohns disease Diagnosis: Secondary ICD Codes: K50.90 - Crohn's disease, unspecified, without complications Status: Chronic (4) Anxiety Diagnosis: Secondary ICD Codes: F41.9 - Anxiety disorder, unspecified Status: Chronic (5) Elevated alkaline phosphatase level Diagnosis: Secondary ICD Codes: R74.8 - Abnormal levels of other serum enzymes Status: Acute (6) Elevated liver enzymes Diagnosis: Secondary ICD Codes: R74.8 - Abnormal levels of other serum enzymes Status: Acute Consultants Dr. Antonia Keene - GI Dr. Sylwia Yung - ID Brief History This is a 32 year old female with a past medical history which includes Crohn's disease s/p bowel resection with colostomy reversal, TIA after Epogen, gastroparesis and anxiety/depression. Patient was started on Imuran 4 weeks ago by [facility] due to continue mucous like diarrhea. Patient presented to the ER with c/o fever x 7 days. Her main complaint is the fever with body aches and chills. Blood work was done which shows elevated CRP and elevated liver function tests. Patient denies any abdominal pain, nausea/ vomiting, diarrhea, dysuria, increased urinary frequency, cough or chest congestion. CBC/BMP: 11/13/17 0856 11/13/17 0856 Significant Findings Laboratory Tests Test 11/10/17 14:58 11/11/17 08:30 11/11/17 12:22 11/12/17 06:15 Erythrocyte Sedimentation Rate 34 mm/hr (0-20) Gamma Glutamyl Transpeptidase 248 U/L (5-55) Hemoglobin 10.9 GM/DL (11.6-15.3) Hematocrit 32.9 % (35.0-46.0) Mean Corpuscular Volume 77.2 FL (80.0-100.0) Mean Corpuscular Hemoglobin 25.7 PG (27.0-34.0) Band Neutrophils % 8 % (0-6) Lymphocytes % 65 % (9-44) Total Protein 6.2 GM/DL (6.4-8.2) 6.0 GM/DL (6.4-8.2) Albumin 2.3 GM/DL (3.4-5.0) 2.1 GM/DL (3.4-5.0) Calcium Level 8.2 MG/DL (8.5-10.1) 7.8 MG/DL (8.5-10.1) Alkaline Phosphatase 659 U/L (45-117) 577 U/L (45-117) Aspartate Amino Transf (AST/SGOT) 81 U/L (15-37) 68 U/L (15-37) Alanine Aminotransferase (ALT/SGPT) 56 U/L (10-53) Potassium Level 3.1 MEQ/L (3.5-5.1) Estimat Glomerular Filtration Rate 73 ML/MIN (>89) 74 ML/MIN (>89) C-Reactive Protein 3.50 MG/DL (0.00-0.30) Random Glucose 70 MG/DL (74-106) Test 11/13/17 08:56 Mean Corpuscular Volume 77.7 FL (80.0-100.0) Mean Corpuscular Hemoglobin 25.5 PG (27.0-34.0) Band Neutrophils % 7 % (0-6) Lymphocytes % 63 % (9-44) Monocytes % 11 % (0-8) Random Glucose 71 MG/DL (74-106) Albumin 2.4 GM/DL (3.4-5.0) Calcium Level 8.3 MG/DL (8.5-10.1) Alkaline Phosphatase 660 U/L (45-117) Aspartate Amino Transf (AST/SGOT) 81 U/L (15-37) Alanine Aminotransferase (ALT/SGPT) 58 U/L (10-53) Estimat Glomerular Filtration Rate 68 ML/MIN (>89) Imaging Last Impressions Chest CT 11/12/17 0000 Signed Impressions: Service Date/Time: October 11:53 - CONCLUSION: 1. Mild bibasal atelectasis. 2. Otherwise, no focal or acute intrathoracic disease. Ilan Marie MD Hepatobiliary Scan Nuclear Medicine 11/10/17 0000 Signed Impressions: Service Date/Time: Friday, November 10, 2017 10:39 - CONCLUSION: 1. No evidence of biliary tract obstruction. 2. Poor ejection fraction of the gallbladder at approximately 10%%. This can be seen with chronic gallbladder disease. Ilan Marie MD Abdomen/Pelvis CT 11/10/17 0000 Signed Impressions: Service Date/Time: Friday, November 10, 2017 16:58 - CONCLUSION: 1. The surgical anastomosis of small bowel to the right side of the colon appears to be grossly intact. There is some mild nonspecific thickening involving the wall of distal small bowel and terminal ileum. No mechanical obstruction is seen. 2. There is some mild diffuse dilatation of the colon with air, fluid and stool. 3. Small amount of free fluid in the cul-de-sac. 4. Hepatomegaly. Ilan Marie MD Cholangiopancreatography MRI 11/09/17 0000 Signed Impressions: Service Date/Time: Thursday, November 09, 2017 16:11 - CONCLUSION: Hepatosplenomegaly. Focally unremarkable MR and MRCP appearance otherwise Rober Weeks MD Chest X-Ray 11/08/17 1758 Signed Impressions: Service Date/Time: Wednesday, November 08, 2017 18:25 - CONCLUSION: 1. No acute cardiopulmonary findings. Jerad Jerez MD PE at Discharge General: NAD, AAOx3 Chest: CTA Cardiac: Regular Abd: +BS, soft ND/NT Ext: No edema Hospital Course EBV Infection Fever Crohn's disease This is a 32 year old female with a past medical history which includes Crohn's disease s/p bowel resection with colostomy reversal, TIA after Epogen, gastroparesis and anxiety/depression. Patient was started on Imuran 4 weeks ago by [facility] due to persistent diarrhea and her Hx of Crohn's. Patient presented to the ER with c/o fever x 7 days. Her main complaint is the fever with body aches and chills. Blood work was done which shows elevated CRP and elevated liver function tests. Patient denies any abdominal pain, nausea/ vomiting, diarrhea, dysuria, increased urinary frequency, cough or chest congestion. Labs on admission WBC 4.6. UA showed trace leucocyte esterase. Urine Culture with no growth in 48 hours. CXR (318): No acute cardiopulmonary disease. Blood cultures with NGTD. Influenza A&B negative Imuran was held. GI and ID were consulted. Pt continued to have fevers throughout the admission but seemed to lessen and be more low grade at the end of the admission. Viral testing for EBV was positive for reoccurrence or reactivation. The assumption is her fevers are most likely due to Otf-Adams viral infection/reactivation as there has been no change in her Crohn's symptoms which were better with Imuran. TB QuantiFERON test negative. Blood cultures were negative. Viral hepatitis is negative. Hep B DNA quant is pending. [place] screen negative. CT Abd/pelvis (11/10) --> The surgical anastomosis of small bowel to the right side of the colon appears to be grossly intact. There is some mild nonspecific thickening involving the wall of distal small bowel and terminal ileum. No mechanical obstruction is seen. There is some mild diffuse dilatation of the colon with air, fluid and stool. Small amount of free fluid in the cul-de-sac. Hepatomegaly. 2D echo (11/11/17) --> Estimated EF 60-65%. Stool studies were negative. Chest CT (11/12) --> Mild bibasal atelectasis. Otherwise, no focal or acute intrathoracic disease. ID recommended: Continue to hold off on antibiotics, monitor temperatures, and no treatment necessary for the Otf-Adams virus. The fever and other symptoms should resolve on its own. Pt will followup with her PCP, Dr. Reyez, in 1 week. She is to monitor her temperatures as an outp Elevated Alkaline phosphorus Elevated AST Elevated ALT Possibly related to Imuran vs. EBV vs. other. Hepatitis profile nonreactive, [place] screen negative, Mitochondrial negative, smooth muscle negative, Alpha-1- antitrypsin pending. HIDA scan and MRCP negative for any obstructive process. HIDA noted poor ejection fraction of the gallbladder at approximately 10%. Pt will followup with GI as an outpt for repeat LFTs and any further recommendations. Pt refused liver biopsy during admission. She wants to speak with GI as an outpt regarding this. Anxiety Continue home alprazolam Hypothyroidism Continue home Synthroid Pt Condition on Discharge: Stable Discharge Disposition: Discharge Home Discharge Instructions DIET: Follow Instructions for: As Tolerated, No Restrictions Activities you can perform: Regular-No Restrictions Follow up Referrals: Appointment for Follow Up @ [facility] - 2 Weeks with Manav Sifuentes MD PCP Follow-up - [address] Reyez PCP Follow-up @ [facility] Continued Medications: Alprazolam (Xanax) 0.5 Mg Tab 0.5 MG PO Q6H PRN for ANXIETY, #30 TAB 0 Refills Cholecalciferol (Vitamin D3) (D3-2000) 2,000 Unit Capsule Unknown Dose PO DAILY Colesevelam (Welchol) 625 Mg Tab Unknown Dose PO Q8HR PRN for DIARRHEA, #180 TAB 0 Refills Cyanocobalamin (B-12) 1,000 Mcg Subl 1500 MCG SL DAILY for Nutritional Supplement, TAB.SL 0 Refills Levothyroxine (Synthroid) 150 Mcg Tab 150 MCG PO DAILY for Thyroid, #30 TAB 0 Refills Pantoprazole (Protonix) 20 Mg Tab 40 MG PO DAILY for Reflux, #30 TAB 0 Refills Discontinued Medications: Azathioprine (Imuran) 50 Mg Tab 50 MG PO DAILY for Immunosuppression, #30 TAB 0 Refills Hazardous agent: use appropriate precautions for handling and disposal. Graciela Ivy Nov 13, 2017 12:34 Clement Man MD Nov 13, 2017 12:37
--- NOTE | 2017-11-13 13:24 | HHI.GIFU ---
Subjective Remarks Pt sitting up in bed Planned for DC today per attending Eating ice cream during my exam States feeling better today Last fever documented from last night Diarrhea improving (Joslyn Rodriguez) Objective Vitals I&O Vital Signs Date Time Temp Pulse Resp B/P (MAP) Pulse Ox O2 Delivery O2 Flow Rate FiO2 11/13/17 12:01 98.6 105 17 106/66 (79) 96 11/13/17 08:15 98.8 93 17 116/74 (88) 97 11/13/17 04:00 99.0 80 17 130/85 (100) 98 11/13/17 00:00 98.2 84 17 111/70 (84) 96 11/12/17 20:00 100.1 91 18 128/74 (92) 96 11/12/17 16:15 99.4 98 17 117/77 (90) 97 I/O 11/12/17 11/12/17 11/12/17 11/13/17 11/13/17 11/13/17 07:00 15:00 23:00 07:00 15:00 23:00 Intake Total 950 ml 240 ml Balance 950 ml 240 ml Intake Oral 950 ml 240 ml # Voids 6 2 # Bowel Movements 2 0 Laboratory Laboratory Tests Test 11/13/17 08:56 White Blood Count 10.7 Red Blood Count 4.71 Hemoglobin 12.0 Hematocrit 36.6 Mean Corpuscular Volume 77.7 Mean Corpuscular Hemoglobin 25.5 Mean Corpuscular Hemoglobin Concent 32.8 Red Cell Distribution Width 17.0 Platelet Count 237 Mean Platelet Volume 8.2 CBC Comment AUTO DIFF Differential Total Cells Counted 100 Neutrophils % (Manual) 19 Band Neutrophils % 7 Lymphocytes % 63 Monocytes % 11 Neutrophils # (Manual) 2.8 Differential Comment FINAL DIFF MANUAL Smudge Cells PRESENT Platelet Estimate NORMAL Platelet Morphology Comment NORMAL Blood Urea Nitrogen 12 Creatinine 0.95 Random Glucose 71 Total Protein 6.6 Albumin 2.4 Calcium Level 8.3 Magnesium Level 1.5 Alkaline Phosphatase 660 Aspartate Amino Transf (AST/SGOT) 81 Alanine Aminotransferase (ALT/SGPT) 58 Total Bilirubin 0.3 Sodium Level 139 Potassium Level 3.6 Chloride Level 105 Carbon Dioxide Level 25.5 Anion Gap 9 Estimat Glomerular Filtration Rate 68 Date/Time Source Procedure Growth Status 11/11/17 19:53 Blood Peripheral Aerobic Blood Culture - Preliminary NO GROWTH IN 2 DAYS Resulted 11/11/17 19:53 Blood Peripheral Anaerobic Blood Culture - Preliminary NO GROWTH IN 2 DAYS Resulted 11/11/17 12:22 Stool Stool Cryptosporidium Exam - Final NEGATIVE - NO CRYPTOSPORIDIUM ANTIGEN... Complete 11/11/17 12:22 Stool Stool Giardia Antigen (AKOSUA) - Final NEGATIVE - NO GIARDIA ANTIGEN DETECTE... Complete 11/08/17 18:20 Nasal Washing Influenza Types A,B Antigen (AKOSUA) - Final NEGATIVE FOR FLU A AND B ANTIGEN.... Complete 11/08/17 18:54 Urine Catheterized Urine Urine Culture - Final NO GROWTH IN 48 HOURS. Complete Imaging Last Impressions Chest CT 11/12/17 0000 Signed Impressions: Service Date/Time: October 11:53 - CONCLUSION: 1. Mild bibasal atelectasis. 2. Otherwise, no focal or acute intrathoracic disease. Ilan Marie MD Hepatobiliary Scan Nuclear Medicine 11/10/17 0000 Signed Impressions: Service Date/Time: Friday, November 10, 2017 10:39 - CONCLUSION: 1. No evidence of biliary tract obstruction. 2. Poor ejection fraction of the gallbladder at approximately 10%%. This can be seen with chronic gallbladder disease. Ilan Marie MD Abdomen/Pelvis CT 11/10/17 0000 Signed Impressions: Service Date/Time: Friday, November 10, 2017 16:58 - CONCLUSION: 1. The surgical anastomosis of small bowel to the right side of the colon appears to be grossly intact. There is some mild nonspecific thickening involving the wall of distal small bowel and terminal ileum. No mechanical obstruction is seen. 2. There is some mild diffuse dilatation of the colon with air, fluid and stool. 3. Small amount of free fluid in the cul-de-sac. 4. Hepatomegaly. Ilan Marie MD Cholangiopancreatography MRI 11/09/17 0000 Signed Impressions: Service Date/Time: Thursday, November 09, 2017 16:11 - CONCLUSION: Hepatosplenomegaly. Focally unremarkable MR and MRCP appearance otherwise Rober Weeks MD Chest X-Ray 11/08/17 [id number] Signed Impressions: Service Date/Time: Wednesday, November 08, 2017 18:25 - CONCLUSION: 1. No acute cardiopulmonary findings. Jerad Jerez MD Physical Exam HEENT: Normocephalic; atraumatic CHEST: Even/unlabored CARDIAC: RRR ABDOMEN: flat, Soft, nondistended, nontender, bowel sounds active EXTREMITIES: No clubbing, cyanosis, or edema. SKIN: Normal; no rash; no jaundice. [employer] T[employer]ER: No focal deficits; alert and oriented times three. (Joslyn Rodriguez [facility]) Assessment and Plan Plan ASSESSMENT - elevated LFTs - have been trending up since 2016 but significant increase of late. ?DILI started imuran 1 m ago no other sx - crohn's s/p colostomy reversal 11/10/17 - still febrile. MRCP noted hepatosplenomegaly. HIDA pending. hepatitis panel neg. mild decrease LFTs HIDA scan --> No evidence of biliary tract obstruction. Poor EF of gallbladder at approx 10%. Can be seen with chronic gallbladder disease MRCP --> Hepatosplenomegaly. Focally unremarkable MR and MRCP otherwise. (11/11) --> GI symptoms today: Continued diarrhea and occasional nausea, denies emesis. Tolerating PO Transaminitis- LFTs increased today. Alk phos iso-enzymes pending. GGT-58. CMV, herpes, [place], EBV pending. On Ursodiol. Crohns- Pt reports increase in diarrhea since being admitted because she has been off Welchol and Imodium which she normally takes at home. Has also been off of Imuran because of fevers. C. diff negative and rotavirus. Stool culture and ova and parasite pending. H. Pylori pending. CT abdomen and pelvis --> Surgical anastomosis of small bowel to the right side of the colon appears to be grossly intact. Some mild nonspecific thickening involving the wall of distal small bowel and terminal ileum. No mechanical obstruction. Small diffuse dilatation of the colon with air, fluid and stool. Small amount of free fluid in the cul-de-sac. Hepatomegaly. Anemia- microcytic, hypochromic- stable H/H, Iron low, % sat low Gastroparesis- Takes Reglan PRN at home for nausea, pt complaining of intermittent nausea will add to current regimen (11/12) Continued fevers. Complaints of continued diarrhea, does not like the taste of the Cholestyramine powder. States takes Welchol 625mg PO daily in the morning, spoke to pharmacy, states they have this available. Added to pts current medication regimen. Also complaining of continued intermittent nausea, does not want IV Reglan. LFTs with some improvement today. EBV positive. Rest of liver MARADIAGA still pending. Pt not interested in liver biopsy at this time. Echocardiogram noted. (11/13) --> Pt being discharged today per attending. States feeling better. Last fever documented was last night. Diarrhea improving with Welchol and Imodium. PLAN - Follow up with Dr. Sifuentes in one week - If not feeling better over the weekend, call Thursday for sooner appt - Finish prescription for Apriso, pt can not afford Entocort - DC Imuran - Will need ID clearance to start Entyvio - Repeat CBC and CMP next week Pt has been seen and examined by myself and Dr. Keene and this note is written on her behalf (Joslyn Rodriguez) Joslyn Rodriguez Nov 13, 2017 13:24 Antonia Keene MD Nov 13, 2017 20:40
[2017-11-13 17:53] LABS: HERPES 6 IGG 1:10; HERPES 6 IGM <1:20; HERPES INTERPRETATION PAST INFECTION (NON-REACTVE)
[2017-11-13 23:50] LABS: ALK PHOS BONE (ISOENZYMES) 43 % (28-66); ALK PHOS INTESTINE (ISOENZYME) 0 % (1-24); ALK PHOS LIVER (ISOENZYME) 57 % (25-69); ALK PHOS PLACENTAL ISOENZYME 0 % (UNDETECTABLE)
[2017-11-16 10:49] LABS: HEP B DNA R1 LESS THAN 10 IU/mL (Not Detected); HEP B DNA R2 LESS THAN 1.00 (Not Detected)
[2017-11-16 10:53] LABS: HCV RNA PCR IU/ML LESS THAN 15 IU/mL (Not Detected)
== END 2017-11-13 13:39 | disposition home or self-care (01) | DRG 866 ==
LOC: NEPC 17:25 → NEDA 21:44 → NEPHCDU 11-09 00:20 → OBSVTOIN 11-11 12:34 → N04A 11-12 12:10
PROVIDERS: ADMIT Hospitalist; ATTEND Hospitalist
DX: B27.00 Gammaherpesviral mononucleosis without complication (principal); K50.90 Crohn's disease, unspecified, without complications; K76.0 Fatty (change of) liver, not elsewhere classified; D50.9 Iron deficiency anemia, unspecified; E07.9 Disorder of thyroid, unspecified; Z86.73 Personal history of transient ischemic attack (TIA), and cerebral infarction without residual deficits; F41.9 Anxiety disorder, unspecified; R79.82 Elevated C-reactive protein (CRP); T45.1X5A Adverse effect of antineoplastic and immunosuppressive drugs, initial encounter; M19.90 Unspecified osteoarthritis, unspecified site; F17.210 Nicotine dependence, cigarettes, uncomplicated; Z90.49 Acquired absence of other specified parts of digestive tract
CPT/HCPCS: 71045; 71250; 74177; 74183; 76377; 78227; 80053; 80074; 81001; 82103; 82390; 82728; 82977; 83520; 83540; 83550; 83605; 83735; 84080; 85007; 85025; 85027; 85044; 85610; 85652; 85730; 86038; 86140; 86255; 86308; 86430; 86480; 86664; 86665; 86790; 87040; 87086; 87328; 87329; 87338; 87425; 87493; 87497; 87506; 87517; 87522; 87529; 87804; 93005; 93306; 96360; 96361; A9537; A9579; G0378; J2765; J2805; J7030; Q9963; Q9967

== ENCOUNTER 2017-11-20 06:23 | Day surgery (SDC) | payer OTHER ==
[2017-11-20] VITALS (8 sets, daily range): BP systolic 90–117; BP diastolic 51–84; PULSE 86–113; RESP 18–20; TEMP 98.6–98.8; O2SAT 95–98
[~2017-11-20] VITALS: Ht 170.2 cm; Wt 58.6 kg
[~2017-11-20 06:23] MED LIST changes: -APRI0.372 PO; -ENTO3CAP5 PO; +LEVO.15 PO; -OXYC1TAB63 PO; -PREN28TA2 PO; -SYNT300T PO
[2017-11-20] MEDS ORDERED: SODIUM CHLOR 0.9% 1000 ML INJ 1,000 ML IV SCH (07:00)
[2017-11-20] MEDS ORDERED: MIDAZOLAM HCL 5 MG/5 ML VIAL ONE (07:28)
[2017-11-20] MEDS ORDERED: fentaNYL CITRATE 250 MCG/5 ML AMP ONE (07:28)
--- NOTE | 2017-11-20 08:35 | PD.RAD ---
Post CT Procedure Prog Note Pre Procedure Diagnosis: (1) Hepatomegaly (2) Elevated liver enzymes Post Procedure Diagnosis: (1) Hepatomegaly (2) Elevated liver enzymes Procedure Date: Nov 20, 2017 Supervising Radiologist: Travon Chua Anesthesia: Local, Conscious Sedation Plan of Activity Patient to Unit: ROPU Patient Condition: Good See PACS Report for procedural detail/treatment Biopsy Imaging Guidance: CT Side: Right Biopsy Procedure: Liver Specimen: Core Biopsy Travon Chua MD Nov 20, 2017 08:35
--- NOTE | 2017-11-20 09:58 | RADRPT ---
EXAM DATE/TIME: 11/20/2017 08:16 [place] COMPARISON: No previous studies available for comparison. INDICATIONS : Primary biliary cirrhosis. SEDATION TIME: 30 minutes BIOPSY SITE: Right flank MEDICATION(S): 1.) 5 mg midazolam (Versed) IV 2.) 200 mcg fentanyl (Sublimaze) IV DEVICE(S): 1.) 18 gauge BioPince needle MEDICAL HISTORY : Cirrhosis. Crohns disease. Renal calculi. SURGICAL HISTORY : section. Colon resection. Colostomy. Colostomy reversal. ENCOUNTER: Initial ACUITY: 1 day PAIN SCORE: 0/10 LOCATION: Right flank A total of two core specimen(s) were obtained and sent to the laboratory for pathologic evaluation. PROCEDURE: 1. CT guided liver biopsy. Prior to the procedure informed consent was obtained. Any appropriate prior imaging studies were rev iewed. Using automated exposure control and adjustment of the mA and/or kV according to patient size, radiat ion dose was kept as low as reasonably achievable to obtain optimal diagnostic quality images. DICOM format image data is available electronically for review and comparison. The site was prepped in a sterile fashion. Full sterile technique was used, including cap, mask, greg rile gloves and gown and a large sterile sheet. Hand hygiene and 2% chlorhexidine and/or betadine/al cohol prep was utilized per protocol for cutaneous antisepsis. The skin and subcutaneous tissues wer e infiltrated with local anesthetic solution. With CT guidance the previously identified target was localized. Biopsy was performed using the presc ribed needle as above. Adequate hemostasis was obtained with compression at the puncture site. Follow-up CT scan reveals no hemorrhage. The patient tolerated the procedure well and there were no complications. The patient was returned to the Radiology Outpatient Unit in stable condition. CONCLUSION: Uncomplicated CT guided biopsy. Travon Chua MD on November 20, 2017 at 9:54 Board Certified Radiologist. This report was verified electronically.
== END 2017-11-20 12:30 | disposition home or self-care (01) ==
LOC: HRAD 06:23 → HRIP 06:23 → HRAD 12:30
PROVIDERS: ATTEND Internal Medicine Gastroenterology
DX: K74.3 Primary biliary cirrhosis (principal); R16.0 Hepatomegaly, not elsewhere classified; R74.8 Abnormal levels of other serum enzymes; K50.90 Crohn's disease, unspecified, without complications; Z87.442 Personal history of urinary calculi
CPT/HCPCS: 47000; 77012; 88307; 88312; 88313; 99152; 99153; J2250; J3010; J7030